=== PATIENT | male | born 1940 | race African-American/Black ===

== ENCOUNTER 2017-04-23 10:46 | Inpatient (IN) ==
--- NOTE | 2017-04-23 11:15 | EKG Report ---
Stationary ECG Study [facility] ER Test Date: 04/23/2017 11:11:52 AM Pat Name: DONG RAMIREZ Department: Room: 276 Gender: M Internet Consultant: Jean Claude Harmon : 1940 Requested by: Valente Pederson Order Number: [id number] Reading MD: OWEN LOREDO Intervals [facility] Rate: 165 P: 999 TX: 0 QRS: 71 QRSD: 97 T: 77 QT: 284 QTc: 375 Interpretive Statements ATRIAL FIBRILLATION/FLUTTER WITH RAPID VENTRICULAR RESPONSE T WAVE ABNORMALITY, POSSIBLE INFERIOR ISCHEMIA OR DIGITALIS EFFECT Electronically Signed On 04-24-17 20:37:54 CDT by OWEN LOREDO [email or web address]
[2017-04-23 11:29] LABS: Basophils % 0.6 % (0.0-0.8); Eosinophils % 0.3 % (0.00-10.9); Hematocrit 37.5 VOL% (42.0-52.0); Hemoglobin 12.1 GM/DL (14.0-18.0); Immature Granulocytes % 0.3 %; Immature Granulocytes Absolute 0.02 #; Lymphocytes # 1.3 10*3/uL (1.4-4.0); Lymphocytes % 19.1 % (21.2-54.2); Mean Corpuscular HGB Conc 32.3 GM/DL (32-36); Mean Corpuscular Hemoglobin 29 PG (27-34); Mean Corpuscular Volume 89.3 FL (87-102); Mean Platelet Volume 9.7 FL (9.6-12.0); Monocytes # 0.7 10*3/uL (0.11-0.8); Monocytes % 10.7 % (1.7-12.7); Neutrophils # 4.7 10*3/uL (1.4-7.4); Platelet Count 182 T/CUMM (130-400); Red Cell Distribution Width 14.3 % (9.3-17.3); White Blood Count 6.8 T/CUMM (4-12)
[2017-04-23 11:45] LABS: INR 1.1; Partial Thromboplastin Time 26.5 SECS (0-40)
[2017-04-23 12:04] LABS: Alanine Aminotransferase 33 U/L (16-61); Albumin 2.6 G/DL (3.4-5.0); Alkaline Phosphatase 94 U/L (45-117); Aspartate Amino Transferase 24 U/L (0-37); Blood Urea Nitrogen 17 MG/DL (7-18); Calcium 8.5 MG/DL (8.5-10.1); Glucose 122 MG/DL (74-106); Magnesium 1.8 MG/DL (1.8-2.4); Osmolality,Calculated 279.5 MOS/KG (273-304); Potassium 4.3 MMOL/L (3.5-5.1); Sodium 139 MMOL/L (136-145); Troponin I Only < 0.015 NG/ML (0.00-0.045)
[2017-04-23] MEDS ORDERED: DILTIAZEM 100 MG VIAL.ADD IV STA (12:16)
[2017-04-23] MEDS ORDERED: DILTIAZEM 100 MG VIAL.ADD IV ONE (12:18)
[2017-04-23] MEDS ORDERED: DILTIAZEM 50 MG/10 ML VIAL IV ONE (12:20)
[2017-04-23] MEDS ORDERED: SODIUM CHLORIDE 0.9% 100 ML IV ONE (12:22)
--- NOTE | 2017-04-23 12:23 | Emergency Department Note ---
Noman Barrett Mantricia, am scribing for, and in the presence of, Valente Leonardo MD 12:20. Malissa Barrett James D, MD, personally performed the services described in this documentation, ascribed by Kimberly Tineo in my presence, and it is both accurate and complete . Arrival - Arrival Chief Complaint: Shortness of Breath Stated Complaint: did not state ED Nursing Triage Note: Pt c/o SOB x 2 months that is getting worse with exertion. Pt had CT of chest done at [facility] 2 wks ago. Mode of Arrival: Ambulatory Limitations: No Limitations Source: Patient, Family Time Seen by Provider: 04/23/17 12:12 - History of Present Illness HPI Narrative: Pt is a 77 y/o black male arriving to ED by EMS with c/o SOB that onset 2 weeks ago. Pt also has had a fast heartbeat for 2 weeks. Pt has emphysema and uses a home nebulizer. Pt has a PSHx of lung surgery and TB surgery. He reports no other complaints to ED. Onset (ago): week(s) Consistency: constant Allergies/Adverse Reactions: Allergies Allergy/AdvReac Type Severity Reaction Status Date / Time No Known Allergies Allergy Unverified 04/09/17 18:22 Home Medications: Home Medications Medication Instructions Recorded Confirmed Type Albuterol Liquid [Proventil Liquid] 10 ml PO TID 04/23/17 04/23/17 History Albuterol Sulfate [Ventolin HFA] 1 puff INH Q6H PRN 04/23/17 04/23/17 History Cetirizine HCl [Cetirizine Tab] 10 mg PO BEDTIME 04/23/17 04/23/17 History HYDROcodone/CHLORPHEN ER SUSP 5 ml PO BEDTIME 04/23/17 04/23/17 History [Tussionex] methylPREDNISolone DOSEPAK [Medrol 4 mg PO DAILY 04/23/17 04/23/17 History Dosepak] Review of System - Review of System 12 point system: reviewed and no additional remarkable complaints except as stated - Review of System Constitutional: Absent: chills, diaphoresis Eyes: Absent: discharge, pain Head/Ears/Nose/Throat: Absent: earache Respiratory: Present: wheezing. Absent: cough, respiratory distress Cardiovascular: Present: dyspnea on exertion. Absent: chest pain, palpitations Gastrointestinal: Absent: abdominal pain, nausea, vomiting, diarrhea Genitourinary male: Absent: urgency Musculoskeletal: Absent: arm pain, back pain Skin: Absent: rash, lesions Neurological: Absent: headache, weakness Medical,Surgical,& Family Hx - Medical History Respiratory: History of: Respiratory Problems (right lung surgery TB) - Social History Smoking Status: Never smoker Exam Vital Signs: Vital Signs Temperature 98.0 F 04/23/17 11:04 Pulse Rate 89 04/23/17 11:04 Respiratory Rate 24 04/23/17 11:04 Blood Pressure 116/80 04/23/17 11:04 O2 Sat by Pulse Oximetry 94 L 04/23/17 11:04 - General General appearance: alert, in no apparent distress - Head Head exam: Present: atraumatic, normocephalic, normal inspection - Eye Eye exam: Present: normal appearance, PERRL, EOMI - ENT ENT exam: Present: normal exam, normal oropharynx, mucous membranes moist, TM's normal bilaterally, normal external ear exam - Neck Neck exam: Present: normal inspection, full ROM, trachea midline. Absent: tenderness - Chest Chest inspection: Present: normal inspection, symmetric chest wall rise. Absent : tenderness - Respiratory Respiratory exam: Present: wheezes (expiratory) - Cardiovascular Cardiovascular exam: Present: normal rhythm, tachycardia (rapid), normal heart sounds - Abdominal Exam Abdominal exam: Present: soft, normal bowel sounds. Absent: distention, tenderness, guarding, rebound - Extremities Exam Extremities exam: Present: normal inspection, full ROM, normal capillary refill. Absent: tenderness, pedal edema - Back Exam Back exam: Present: normal inspection, full ROM. Absent: tenderness - Neurological Exam Neurological exam: Present: alert, oriented X3, CN II-XII intact, normal gait, reflexes normal - Psychiatric Psychiatric exam: Present: normal affect, normal mood - Skin Skin exam: Present: warm, dry, intact, normal color Course Course Narrative: Patient was given Cardizem 10 mg bolus and 10 mg IV infusion while in the emergency department. - Consultations Consultation #1: Discussed with hospitalist. Patient will be admitted to their service. Time: 12:30 Results - Labs CBC & BMP: 04/23/17 11:14 04/23/17 11:14 Lab Results: I have reviewed the patients labs Labs: Laboratory Tests 04/23/17 04/23/17 04/23/17 11:14 11:14 11:14 Hgb 12.1 L Hct 37.5 L Lymph % (Auto) 19.1 L Lymph # (Auto) 1.3 L Creatinine 1.40 H Glucose 122 H B-Natriuretic Peptide 183 H Albumin 2.6 L Globulin 4.4 H Albumin/Globulin Ratio 0.5 L - EKG EKG results: interpreted by ERMD - Impressions EKG: Atrial fib with RVR, rate 165, nonspecific ST-T wave changes. - Diagnostic Findings Procedure: Chest x-ray: image reviewed by me (Volume loss in the right consistent with patient's prior thoracotomy.) Disposition Clinical Impression: Atrial fibrillation with RVR, Abnormal CT scan, chest Case discussed with: patient, patient's family Disposition: Still a Patient Condition: Stable Time of Disposition: 12:32
--- NOTE | 2017-04-23 12:32 | XRay Report ---
XR chest 2V Indication: SOB Comparison: Chest x-ray dated April 09, 2017 Technique: Frontal and lateral views of the chest. Findings: Significant right-sided pleural-parenchymal abnormality with associated volume loss of the right lung unchanged. Redemonstration of left suprahilar prominence/masslike opacity. The cardiomediastinal silhouette is stable in configuration. There is again mild rightward mediastinal shift. Visualized osseous and surrounding soft tissue structures appear grossly unchanged.. Significant deformity of right rib cage again noted. IMPRESSION: No significant change from April 09, 2017. PROCEDURE INTERPRETED AT [facility] DEPARTMENT OF RADIOLOGY Final Report Signed by: Dr Sebastian Godoy
[2017-04-23] MEDS: SODIUM CHLORIDE 0.9% 1,000 ML IV SCH (13:06)
--- NOTE | 2017-04-23 13:15 | Hospitalist History & Physical ---
Assessment and Plan - Time spent with patient Time spent with patient: Greater than 30 minutes (1) Right lower lobe lung mass Status: Acute Assessment and plan: Mr. Dodge is a very pleasant 77-year-old -[place] male with history of thoracotomy due to tuberculosis approximately [address] Naqvi followed him at that time the patient states he has had no further problems. He is now admitted by the hospitalist service with progressive shortness of breath, tachypnea, A. fib with RVR, and lung mass noted on CT scan. Patient is seen Dr. Naqvi before so will consult him for evaluation. Patient is started on Cardizem drip and admitted to telemetry on Dr. Verduzco's service. Labs have been ordered, troponins as well. Dr. Verduzco to see and examine patient and further recommendations to follow. Current Visit: Yes (2) Hilar lymphadenopathy Status: Acute Current Visit: Yes (3) Cough Status: Acute Current Visit: Yes (4) Shortness of breath Status: Acute Current Visit: Yes (5) Atrial fibrillation with RVR Status: Acute Current Visit: Yes History of Present Illness Chief complaint: Shortness of breath History of present illness: Mr. Dodge is a very pleasant 77 year old male with history of right thoracotomy due to TB about 20 years ago presenting to the ED with progressive shortness of breath and cough. Patient states it started about 2 months ago with the shortness of breath and dyspnea on exertion. He does have to sleep on multiple pillows. He states he went to [facility] on 04/09/2017 and he was transferred to [facility] for pulmonary consultation. They made an appointment with Dr. Naqvi who has seen him previously for May 01. Patient states the shortness of breath is worsened and his states he could not even sleep and he was agitated last night due to shortness of breath. CT scan done at [facility] shows neoplastic adenopathy with keagan necrosis. There is a large heterogeneous enhancing mass that measures 4.8 cm transverse and 6.7 cm longitudinal. Left hilar adenopathy is present with central necrosis. Describes adenopathy extending caudally and wraps around the left bronchus. Appearance of the right lung suggest sequela of possible surgery with volume loss and scarring noted. Patient is mildly tachypneic, creatinine mildly elevated at 1.4, and BNP mildly elevated at 183. Patient is moderately congested with coarseness bilaterally and wheezing present. Patient is also found to be in A. fib with RVR and Cardizem has been started in the ED. Patient denies headache, chest pain, dysphagia, abdominal pain, constipation or diarrhea, or lower extremity edema. After discussion with Dr. Leonardo the ED physician and Dr. Verduzco the admitting hospitalist, it was agreed patient be admitted for further evaluation and treatment. Home Medications Medication Instructions Recorded Confirmed Type Albuterol Liquid [Proventil Liquid] 10 ml PO TID 04/23/17 04/23/17 History Albuterol Sulfate [Ventolin HFA] 1 puff INH Q6H PRN 04/23/17 04/23/17 History Cetirizine HCl [Cetirizine Tab] 10 mg PO BEDTIME 04/23/17 04/23/17 History HYDROcodone/CHLORPHEN ER SUSP 5 ml PO BEDTIME 04/23/17 04/23/17 History [Tussionex] methylPREDNISolone DOSEPAK [Medrol 4 mg PO DAILY 04/23/17 04/23/17 History Dosepak] Allergies Allergy/AdvReac Type Severity Reaction Status Date / Time No Known Allergies Allergy Unverified 04/09/17 18:22 Medical,Surgical,& Family Hx - Medical History Respiratory: History of: Respiratory Problems (right lung surgery TB) - Surgical History Thoracic Surgeries: Surgical HX of;: Lobectomy - Family History Family History: Reports;: Family Heart Disease - Social History Smoking Status: Former smoker Have you smoked in the last 12 months: No Frequency of Alcohol Use: None Type of Drug Use: None Marital Status: Lives With:: Spouse Functional capacity: independent ambulation Review of systems: A complete 10 system review of systems was obtained and pertinent positives and negatives per HPI Exam - Constitutional Vitals: Period Temp Pulse Resp BP Sys/Srivastava Pulse Ox Last 24 Hr 98.0 F-98.0 F 89-89 24-24 116-116/80-80 94 Exam: Constitutional System: Moderate distress. No tremulousness. Head: Normocephalic, atraumatic. Ears, Nose and Throat System: No evidence of Otitis or Mastoiditis. No epistaxis or discharge, poor dentition Eyes System: Pupils equal, round, and reactive. Extraocular muscles intact. Neck: Supple, without adenopathy, No jugular venous distention. No thyromegaly, neck mass, or prior surgery apparent. Respiratory System: Chest coarse bilaterally with expiratory wheeze to auscultation. Cardiovascular System: Heart with irregularly irregular and tachycardic rate and rhythm. No murmur. GI System: Abdomen soft, nontender. Normo active bowel sounds present. Musculoskeletal System: limbs with no pedal edema. Full distal pulses. Neurological System: No discernable sensory deficit. No aphasia Psychiatric System: Conversation is rational Results - Labs CBC & BMP: 04/23/17 11:14 04/23/17 11:14 Lab Results: I have reviewed the past 24 hour labs - EKG EKG shows: atrial fibrillation - Impressions A. fib with RVR, T-wave abnormality with possible inferior ischemia or digitalis effect - Diagnostic Findings Procedure: Chest x-ray: report reviewed by me (Right-sided pleural parenchymal abnormality with associated volume loss of the right lung unchanged. Left suprahilar prominence/masslike opacity. Mild rightward mediastinal shift. Deformity of right rib cage)
[2017-04-23] MEDS ORDERED: GLUCAGON 1 MG VIAL IM PRN (13:38)
[2017-04-23] MEDS ORDERED: ONDANSETRON 4 MG/2 ML VIAL IV PRN (13:38)
[2017-04-23] MEDS ORDERED: ACETAMINOPHEN 325 MG TABLET PO PRN (13:38)
[2017-04-23] MEDS ORDERED: DEXTROSE 50% 25 GM/50 ML VIAL IV PRN (13:38)
[2017-04-23] MEDS ORDERED: guaiFENesin/DM ER 600-30 MG TABLET PO PRN (13:38)
[2017-04-23] MEDS ORDERED: ALBUTEROL 2.5 MG/3 ML NEB RESP TX PRN (15:40)
[2017-04-23] MEDS: methylPREDNISolone SOD SUC 125 MG/2 ML VIAL IV SCH (16:42)
[2017-04-23] MEDS: cefTRIAXone 1,000 MG in SODIUM CHLORIDE 0.9% 100 ML IV SCH (16:42)
[2017-04-23] MEDS: LEVOFLOXACIN 500 MG TABLET PO SCH (16:42)
[2017-04-23] MEDS: ENOXAPARIN 80 MG/0.8 ML SYRINGE SUBCUT SCH (16:52)
[2017-04-23] MEDS: INSULIN LISPRO 100 UNIT/ML SUBCUT SCH ×2 (16:53→21:06)
--- NOTE | 2017-04-23 17:18 | Pulmonology Consult Note ---
Assessment and Plan (1) Acute bronchitis Status: Acute Assessment and plan: He does have a cough and sputum production and rhonchi. We will treat him with antibiotics and steroids. Need to get cultures. Probably has some bronchopneumonia as well. Current Visit: Yes (2) Abnormal CT scan, chest Status: Acute Assessment and plan: I have not been able to pull up the CT to review but reading the reports it indicates that he has some mediastinal adenopathy. I will plan bronchoscopy in the morning. Hopefully I will be able to review the films prior to that. he does have a remote history of some form of some form of tuberculosis. Current Visit: Yes (3) Atrial fibrillation with RVR Status: Acute Assessment and plan: Rate is controlled. Current Visit: Yes (4) Hilar lymphadenopathy Status: Acute Assessment and plan: Could be results of previous TB or he could have a malignancy. Plan to do bronchoscopy in the morning and see if anything is visible there. Also will get cultures for Mycobacterium and bacterial causes of this Current Visit: Yes History of Present Illness Chief complaint: cough, congestion History of present illness: Mr. Dodge is a 77 year old male who has been short of breath going on close to a month. He has had a cough and congestion for the last 2 weeks. He went to the emergency room at [place] about 2 weeks ago. He was thought to have an obstructed bronchus but the CT scan did not bear that out. He was to see me in the office but he came in here today with increased shortness of breath cough and yellow sputum production. He does not think he has had any fever. He stopped smoking about 20 or 30 years ago. He has had a previous partial resection of his right long with an apparent thoracoplasty in the late s by Dr. Matos. I do not have the details of that and we are going to need to see that. He reportedly had tuberculosis and was treated and felt to be cured. There is no known history of a cancer. He does have a good bit of mediastinal adenopathy on his CT done 2 weeks ago at [place]. Home Medications Medication Instructions Recorded Confirmed Type Albuterol Liquid [Proventil Liquid] 10 ml PO TID 04/23/17 04/23/17 History Albuterol Sulfate [Ventolin HFA] 1 puff INH Q6H PRN 04/23/17 04/23/17 History Cetirizine HCl [Cetirizine Tab] 10 mg PO BEDTIME 04/23/17 04/23/17 History HYDROcodone/CHLORPHEN ER SUSP 5 ml PO BEDTIME 04/23/17 04/23/17 History [Tussionex] methylPREDNISolone DOSEPAK [Medrol 4 mg PO DAILY 04/23/17 04/23/17 History Dosepak] Allergies Allergy/AdvReac Type Severity Reaction Status Date / Time No Known Allergies Allergy Unverified 04/09/17 18:22 12 point system: reviewed and no additional remarkable complaints except as stated - Constitutional Constitutional: Present: fatigue - Cardiovascular Cardiovascular: Present: dyspnea, dyspnea on exertion - Respiratory Respiratory: Present: cough, dyspnea, dyspnea on exertion, wheezing, change in phlegm color Exam (Pulmonay) H&P - Constitutional Vitals: Period Temp Pulse Resp BP Sys/Srivastava Pulse Ox Last 24 Hr 98.0 F-98.4 F 89-122 20-24 116-146/80-85 94-95 Exam: Vital signs are normal. Oxygen saturation 94% on 2 L. Weight is 77 kg. HEENT : Pupils react to light. Throat is clear. Neck supple no bruits. Chest reveals some rhonchi in the bases equal breath sounds. Heart normal rate and rhythm no murmurs. Abdomen soft no masses. Extremities no clubbing cyanosis or edema. Calves are nontender. Medical,Surgical,& Family Hx - Medical History HEENT: No history of: Ear Problem, Eye Problem, Dental Problems, Glaucoma, Oral Cancer, HEENT Problems Respiratory: History of: Bronchitis, Respiratory Problems (right lung surgery TB) Musculoskeletal: History of: Musculoskeletal Problems (arthitis) - Surgical History Thoracic Surgeries: Surgical HX of;: Lobectomy HEENT Surgeries: Patient denies: Eye Surgery, Tonsilectomy & Adenoidectomy Abdominal Surgeries: Surgical HX of: Appendectomy Reproductive Surgeries: Patient denies;: Genitourinary Surgery - Family History Family History: Reports;: Family Heart Disease Denies;: Family Cancer, Family Diabetes, Family Hypertension, Family Psychiatric Problems, Family Stroke - Social History Smoking Status: Former smoker Frequency of Alcohol Use: None Type of Drug Use: None Results - Labs CBC & BMP: 04/23/17 11:14 04/23/17 11:14 Lab Results: I have reviewed the past 24 hour labs - Diagnostic Findings Procedure: Chest x-ray: image reviewed by me (Previous thoracoplasty on the right side. Mediastinum slightly enlarged.)
[2017-04-23 18:51] LABS: INR 1.2; PT Patient Result 12.7 SECS; Partial Thromboplastin Time 30.7 SECS (0-40)
[2017-04-23] MEDS: ALBUTEROL/IPRATROPIUM 3 ML NEB RESP TX SCH (19:08)
[2017-04-23] MEDS: DILTIAZEM 30 MG TABLET PO SCH (21:00)
[2017-04-23] MEDS: ZALEPLON 5 MG CAPSULE PO PRN (21:00)
[2017-04-23] MEDS: CETIRIZINE 10 MG TABLET PO SCH (21:00)
[2017-04-23] MEDS ORDERED: ENOXAPARIN 40 MG/0.4 ML SYRINGE SUBCUT SCH (21:00)
[2017-04-23] MEDS: HYDROcodone/CHLORPHENIRAMINE ER 5 ML UDCUP PO SCH (21:06)
[2017-04-24] MEDS: ALBUTEROL/IPRATROPIUM 3 ML NEB RESP TX SCH ×4 (00:02→19:10)
[2017-04-24] MEDS ORDERED: DILTIAZEM INJ 100 MG in SODIUM CHLORIDE 0.9% 100 ML IV SCH (01:30)
[2017-04-24] MEDS: ENOXAPARIN 80 MG/0.8 ML SYRINGE SUBCUT SCH ×3 (04:07→21:06)
[2017-04-24] MEDS: methylPREDNISolone SOD SUC 125 MG/2 ML VIAL IV SCH ×2 (04:07→16:47)
[2017-04-24 05:22] LABS: Basophils % 0.1 % (0.0-0.8); Hemoglobin 11.3 GM/DL (14.0-18.0); Immature Granulocytes % 0.4 %; Immature Granulocytes Absolute 0.03 #; Lymphocytes # 0.7 10*3/uL (1.4-4.0); Mean Corpuscular HGB Conc 32.3 GM/DL (32-36); Mean Corpuscular Hemoglobin 29 PG (27-34); Mean Corpuscular Volume 88.4 FL (87-102); Mean Platelet Volume 10.1 FL (9.6-12.0); Monocytes # 0.1 10*3/uL (0.11-0.8); Monocytes % 2.1 % (1.7-12.7); Neutrophils # 5.8 10*3/uL (1.4-7.4); Neutrophils % 86.4 % (38.7-73.9); Platelet Count 165 T/CUMM (130-400); Red Blood Count 3.96 MC/CUMM (3.8-5.5); Red Cell Distribution Width 14.1 % (9.3-17.3); White Blood Count 6.7 T/CUMM (4-12)
[2017-04-24 05:30] LABS: INR 1.2; PT Patient Result 12.6 SECS
[2017-04-24 05:57] LABS: Blood Urea Nitrogen 20 MG/DL (7-18); Calcium 8.4 MG/DL (8.5-10.1); Glucose 150 MG/DL (74-106); Magnesium 1.9 MG/DL (1.8-2.4); Osmolality,Calculated 282.5 MOS/KG (273-304); Potassium 4.8 MMOL/L (3.5-5.1); Sodium 139 MMOL/L (136-145); Troponin I Only < 0.015 NG/ML (0.00-0.045)
--- NOTE | 2017-04-24 06:45 | XRay Report ---
XR chest 1V portable Indication: Shortness of breath Comparison: Chest x-ray 04/23/2017. Technique: Portable AP chest was performed. Findings: The heart is stable in size compared to previous study. Pulmonary vasculature is prominent within the central chest. Hilar structures suggest enlargement of pulmonary arteries. This finding is stable compared to prior study. The lungs demonstrate minimal interval increase in linear horizontal interstitial opacities in the periphery of the lower left lung suggesting interval development of interstitial edema. The right lung parenchyma has changed little since comparison. Bones and soft tissues demonstrate little change from comparison. Impression: 1. Interval development of interstitial pulmonary edema within the left lung is not excluded. 2. Pulmonary vascular congestive changes are suggested. 04/24/2017 6:41 AM PROCEDURE INTERPRETED AT [facility] DEPARTMENT OF RADIOLOGY Final Report Signed by: Dr. Dalton Vance
[2017-04-24] MEDS ORDERED: PROMETHAZINE 25 MG/1 ML VIAL IM ONE (07:00)
[2017-04-24] MEDS ORDERED: MIDAZOLAM 2 MG/2 ML VIAL ONE (07:19)
[2017-04-24] MEDS ORDERED: LIDOCAINE 1% 20 ML VIAL MISC INJ ONE (07:30)
[2017-04-24] MEDS ORDERED: MIDAZOLAM 2 MG/2 ML VIAL IV ONE (07:30)
--- NOTE | 2017-04-24 07:50 | Operative Note ---
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 After an appropriate timeout to be sure we were dealing with Wilberto Dodge , the patient was topically anesthetized in the nose and nasopharynx with Xylocaine. 3 L of nasal oxygen was placed in the right naris. He was given 2 mg of Versed intravenously to the point of sedation. The fiberoptic bronchoscope was introduced via the left naris. The vocal cords were identified and noted to function normally with phonation. After further topical anesthesia the trachea was entered. It was somewhat tortuous but no lesions seen. The cory was sharp. The right main bronchus appeared normal. The right upper lobe bronchi appear to terminate but it was difficult to tell. Appears he has had at least a partial right upper lobectomy. Right middle and lower lobe bronchi appeared normal. There were increased secretions on the right side which were irrigated and removed. The left main bronchus was narrowed to about 50% normal diameter. The medial wall of the left main bronchus about jail down showed a mass impinging and narrowing it to about 30 -40% of normal diameter. There were abnormal mucosal areas on that lesion consistent with carcinoma. 2 biopsies were obtained from this mass. There was modest bleeding. I did not do any further biopsies because of the bleeding. We got the bleeding stopped with saline irrigation and scope tip pressure. The distal bronchi, left upper lobe and left lower lobe were both open. There were no lesions distal to the one in the mid medial wall of the left main bronchus. Bronchial washings were obtained as well. The bronchoscope was removed. I did take multiple photographs. The patient returned to his room in stable condition. The narrowing of the left main bronchus is not to the point where it would require a stent. If this is indeed carcinoma, which it certainly looks like, then radiation or chemotherapy would be indicated. Not a surgical candidate since the lesion involves the mediastinum Anesthesia: conscious sedation Surgeon / Physician: Stuart Naqvi Estimated blood loss: minimal Specimens: other (Biopsies 2 left main bronchus, bronchial washings) Condition: stable Disposition: floor Results - Labs CBC & BMP: 04/24/17 04:34 04/24/17 04:34 Discharge Plan - Discharge Medications No Action Albuterol Liquid [Proventil Liquid] 10 ml PO TID Cetirizine HCl [Cetirizine Tab] 10 mg PO BEDTIME Albuterol Sulfate [Ventolin HFA] 1 puff INH Q6H PRN PRN Reason: Shortness Of Breath/Wheezing methylPREDNISolone DOSEPAK [Medrol Dosepak] 4 mg PO DAILY HYDROcodone/CHLORPHEN ER SUSP [Tussionex] 5 ml PO BEDTIME - Follow Up or Referral - Forms/Instructions
--- NOTE | 2017-04-24 07:55 | Pulmonology Progress Note ---
Pulmonary - PN: Subj Interval history: This 77-year-old man came in with increased shortness of breath. He had a CT at [place] about 2 weeks ago showing some mediastinal mass with partial extrinsic compression of left main bronchus. He is in now with cough congestion and increased shortness of breath. He underwent fiberoptic bronchoscopy this morning. He has tumor compressing the left main bronchus but there did appear to be an element of it involving the mucosa. Biopsies were taken and should give us an answer. His left main bronchus is not obstructed enough to require a stent. Likely would need combination of radiation and chemotherapy depending on cell type. We are waiting on retrieval of old records from 30 years ago when he had surgery on his right long and a thoracoplasty. He had TB at that time. Exam (Progress Note) - Constitutional Vitals: Period Temp Pulse Resp BP Sys/Srivastava Pulse Ox Last 24 Hr 97.5 F-99.0 F 70-135 12-24 116-207/76-124 90-100 Exam: Patient's alert oriented vital signs normal. Pupils react to light. Throat is clear. Neck supple no bruits. Chest reveals some rhonchi bilaterally. Heart irregular without murmurs. He has multifocal atrial tachycardia. Abdomen soft nontender no masses. Extremities no clubbing cyanosis edema. Calves nontender. Results - Labs CBC & BMP: 04/24/17 04:34 04/24/17 04:34 Lab Results: I have reviewed the past 24 hour labs - Diagnostic Findings Procedure: Chest x-ray: image reviewed by me (Volume loss in right lung from previous lung surgery and thoracoplasty. Left hilum is plump) Assessment and Plan (1) Acute bronchitis Status: Acute Assessment and plan: He does have a cough and sputum production and rhonchi. We will treat him with antibiotics and steroids. Need to get cultures. Probably has some bronchopneumonia as well. 04/24/2017 being treated with antibiotics and steroids for acute bronchitis. Current Visit: Yes (2) Abnormal CT scan, chest Status: Acute Assessment and plan: I have not been able to pull up the CT to review but reading the reports it indicates that he has some mediastinal adenopathy. I will plan bronchoscopy in the morning. Hopefully I will be able to review the films prior to that. he does have a remote history of some form of some form of tuberculosis. 04/24/2017 was able to review the CT and he has fairly large mass in the mediastinum/left hilum with compression of left main bronchus. He has had bronchoscopy this morning with biopsies. Await pathology from that. Current Visit: Yes (3) Atrial fibrillation with RVR Status: Acute Assessment and plan: Rate is controlled. 04/24/2017. On the monitor during his bronchoscopy it is apparent that he has multifocal atrial tachycardia rather than atrial fibrillation at the present time. Current Visit: Yes (4) Hilar lymphadenopathy Status: Acute Assessment and plan: Could be results of previous TB or he could have a malignancy. Plan to do bronchoscopy in the morning and see if anything is visible there. Also will get cultures for Mycobacterium and bacterial causes of this 04/24/2017 this is likely to be a primary malignancy. Biopsies are pending. See bronchoscopy report Current Visit: Yes
[2017-04-24] MEDS: DILTIAZEM 30 MG TABLET PO SCH ×3 (09:54→21:05)
[2017-04-24] MEDS: PANTOPRAZOLE 40 MG TABLET PO SCH (09:54)
[2017-04-24] MEDS: INSULIN LISPRO 100 UNIT/ML SUBCUT SCH ×4 (09:59→21:08)
--- NOTE | 2017-04-24 10:09 | Hospitalist Progress Note ---
Assessment and Plan - Time spent with patient Time spent with patient: Less than 30 minutes (1) Right lower lobe lung mass Status: Acute Assessment and plan: Mr. Dodge is a very pleasant 77-year-old -[place] male with history of thoracotomy due to tuberculosis approximately [address] Naqvi followed him at that time the patient states he has had no further problems. He is now admitted by the hospitalist service with progressive shortness of breath, tachypnea, A. fib with RVR, and lung mass noted on CT scan. Patient is seen Dr. Naqvi before so will consult him for evaluation. Patient is started on Cardizem drip and admitted to telemetry on Dr. Verduzco's service. Labs have been ordered, troponins as well. Dr. Verduzco to see and examine patient and further recommendations to follow. 04/24/2017 patient looks and feels much better today. He is breathing much easier with no wheezing. His A. fib with RVR has now converted to normal sinus rhythm with a heart rate in the 90s. He is still on Cardizem drip. Will discuss this with Dr. Verduzco and see if he can be switched over to p.o. Cardizem. His blood pressures are elevated so we will start him on some Norvasc 10 mg daily and some Procardia as needed. Patient was seen by Dr. Naqvi yesterday and he performed a bronchoscopy this morning. 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 He did obtain multiple biopsies and bronchial washings of this. The narrowing of the left main bronchus did not require stenting at this time. He did feel that this was certainly a carcinoma and may require radiation or chemotherapy. We will await biopsy results. Will continue with his current plan of care. Dr. Verduzco we will see and examine patient and further recommendations to follow. Current Visit: Yes (2) Hilar lymphadenopathy Status: Acute Current Visit: Yes (3) Cough Status: Acute Current Visit: Yes (4) Shortness of breath Status: Acute Current Visit: Yes (5) Atrial fibrillation with RVR Status: Acute Current Visit: Yes Hospitalist: Subjective Interval history: Patient looks and feels much better this morning. He is a little sleepy from his sedation on bronchoscopy this morning. He has no complaints of chest pain or shortness of breath today. Dr. Naqvi did discuss results of the bronchoscopy with his . I discussed the findings again with him and her at the bedside. Exam - Constitutional Vitals: Period Temp Pulse Resp BP Sys/Srivastava Pulse Ox Last 24 Hr 97.5 F-99.0 F 70-135 12-24 116-207/76-124 90-100 Exam: 77-year-old -[place]os[place] male, no acute distress, alert and oriented Chest with mild coarseness bilaterally, no wheezing CV normal sinus rhythm Abdomen soft nontender Extremities no edema Results - Labs CBC & BMP: 04/24/17 04:34 04/24/17 04:34 Lab Results: I have reviewed the past 24 hour labs - EKG EKG results: sinus rhythm
[2017-04-24] MEDS: SODIUM CHLORIDE 0.9% 1,000 ML IV SCH (10:15)
[2017-04-24] MEDS ORDERED: NIFEdipine 10 MG CAPSULE PO PRN (10:20)
[2017-04-24] MEDS: amLODIPine 10 MG TABLET PO SCH (12:02)
[2017-04-24] MEDS ORDERED: methylPREDNISolone SOD SUC 125 MG/2 ML VIAL IV ONE (15:15)
[2017-04-24 15:50] LABS: ABG HCO3 32.4 MMOL/L (20-26); ABG Oxygen Saturation 97.2 % (95-100); ABG PH 7.242 (7.35-7.45); ABG PO2 107.4 MM HG (80-95); ABG TCO2 34.8 MMOL/L (23-27)
[2017-04-24 15:52] LABS: ABG PCO2 77.1 MM HG (35-48)
--- NOTE | 2017-04-24 16:01 | XRay Report ---
XR chest 1V portable Indication: Post bronchoscopy Comparison: Chest x-ray dated April 24, 2017 at 6:22 AM Technique: Single frontal view of the chest Findings: The cardiomediastinal silhouette is stable in configuration. Left suprahilar masslike prominence again noted. Significant pleural-parenchymal mildly throughout the right lung again noted with volume loss and mild rightward mediastinal shift. Left lung demonstrates nonspecific coarse and interstitial prominence, greatest inferiorly, unchanged. No evidence of pneumothorax. Visualized osseous and surrounding soft tissue structures appear grossly unchanged. IMPRESSION: No significant interval change without evidence of pneumothorax. PROCEDURE INTERPRETED AT [facility] DEPARTMENT OF RADIOLOGY Final Report Signed by: Dr Sebastian Godoy
[2017-04-24] MEDS: LEVOFLOXACIN 500 MG TABLET PO SCH (17:16)
[2017-04-24] MEDS: cefTRIAXone 1,000 MG in SODIUM CHLORIDE 0.9% 100 ML IV SCH (17:17)
[2017-04-24] MEDS: CETIRIZINE 10 MG TABLET PO SCH (21:06)
[2017-04-24] MEDS: HYDROcodone/CHLORPHENIRAMINE ER 5 ML UDCUP PO SCH (21:07)
--- NOTE | 2017-04-24 22:01 | EKG Report ---
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
[2017-04-24] MEDS ORDERED: ADENOSINE 6 MG/2 ML VIAL ONE (22:13)
[2017-04-24] MEDS ORDERED: METOPROLOL TARTRATE 5 MG/5 ML VIAL IV ONE ×2 (22:23→22:25)
--- NOTE | 2017-04-24 22:44 | Event Note ---
I got called to the floor that the patient was having SVT. Patient had an EKG that the heartbeats of 147 Minute however the EKG had P waves occuring at the end of T's. Carotid massage was able to drop the heart rate down very easily. Once that was done it was obvious patient was back in atrial fibrillation. Give him 5 mg of low metoprolol IV slow push. He slowed his heart rate 104 beats on average but still in atrial fibrillation. His gentleman was here with atrial fibrillation and was on diltiazem IV was switched to oral diltiazem area on during the daytime. The heart rate goes up again will put him back on IV diltiazem. Patient is stable no symptoms nothing else to be done continue telemetry monitoring.
[2017-04-25] MEDS: ALBUTEROL/IPRATROPIUM 3 ML NEB RESP TX SCH ×5 (00:12→20:42)
[2017-04-25] MEDS: SODIUM CHLORIDE 0.9% 1,000 ML IV SCH (05:09)
[2017-04-25] MEDS: methylPREDNISolone SOD SUC 125 MG/2 ML VIAL IV SCH ×2 (05:09→16:55)
--- NOTE | 2017-04-25 06:56 | XRay Report ---
XR chest 1V portable Indication: Status post bronchoscopy. Comparison: Chest x-ray 04/24/2017 Technique: Portable AP chest was performed. Findings: The heart is stable in size and appearance compared to prior study. Pulmonary vasculature demonstrates no specific abnormality. Hilar structures are stable compared to the prior study. The lungs demonstrate little change from comparison. Bones and soft tissues demonstrate stable appearance deformity of the right rib cage unchanged. Impression: 1. No adverse interval change in the chest. 04/25/2017 6:52 AM PROCEDURE INTERPRETED AT [facility] DEPARTMENT OF RADIOLOGY Final Report Signed by: Dr. Dalton Vance
[2017-04-25] MEDS: DILTIAZEM 30 MG TABLET PO SCH (07:45)
--- NOTE | 2017-04-25 07:58 | Pulmonology Progress Note ---
Pulmonary - PN: Subj Interval history: This 77-year-old man came in with increased shortness of breath. He had a CT at [place] about 2 weeks ago showing some mediastinal mass with partial extrinsic compression of left main bronchus. He is in now with cough congestion and increased shortness of breath. He underwent fiberoptic bronchoscopy this morning. He has tumor compressing the left main bronchus but there did appear to be an element of it involving the mucosa. Biopsies were taken and should give us an answer. His left main bronchus is not obstructed enough to require a stent. Likely would need combination of radiation and chemotherapy depending on cell type. We are waiting on retrieval of old records from 30 years ago when he had surgery on his right long and a thoracoplasty. He had TB at that time. 04/25/2017 patient had episodes of tachyarrhythmia during the night. He had a carotid massage and some IV medications per hospitalist service. This morning it appears that he has atrial flutter with 2-1 block and heart rate around 150. He does not seem real symptomatic. He is alert. Yesterday his ABG showed CO2 retention when he was on 4 L of oxygen. We have reduced the oxygen. Have not repeated the ABGs. Pathology from biopsy done yesterday should be out tomorrow. 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 He had a decortication done by Dr. Matos. He had full treatment for TB and was cured. This accounts for his abnormal x-ray on the right side. He did have a thoracoplasty at that time as well. At this point we need cardiology to help with his tachyarrhythmia, and we await his pathology report. Shortly will not be a surgical candidate by the location of the tumor and physiologically. Exam (Progress Note) - Constitutional Vitals: Period Temp Pulse Resp BP Sys/Srivastava Pulse Ox Last 24 Hr 96.2 F-99.1 F 80-104 17-22 123-181/63-94 90-99 Exam: Patient's alert oriented vital signs normal, except pulse about 150. Pupils react to light. Throat is clear. Neck supple no bruits. Chest reveals some rhonchi bilaterally. Heart irregular without murmurs. He has multifocal atrial tachycardia. Abdomen soft nontender no masses. Extremities no clubbing cyanosis edema. Calves nontender. Results - Labs CBC & BMP: 04/24/17 04:34 04/24/17 04:34 Lab Results: I have reviewed the past 24 hour labs - Diagnostic Findings Procedure: Chest x-ray: image reviewed by me (No change in x-ray this morning. Previous thoracoplasty on the right with some pleural calcification. Left lung fairly clear. Left hilar mass.) Assessment and Plan (1) Acute bronchitis Status: Acute Assessment and plan: He does have a cough and sputum production and rhonchi. We will treat him with antibiotics and steroids. Need to get cultures. Probably has some bronchopneumonia as well. 04/24/2017 being treated with antibiotics and steroids for acute bronchitis. 04/25/2017 continuing antibiotics and steroids. Current Visit: Yes (2) Abnormal CT scan, chest Status: Acute Assessment and plan: I have not been able to pull up the CT to review but reading the reports it indicates that he has some mediastinal adenopathy. I will plan bronchoscopy in the morning. Hopefully I will be able to review the films prior to that. he does have a remote history of some form of some form of tuberculosis. 04/24/2017 was able to review the CT and he has fairly large mass in the mediastinum/left hilum with compression of left main bronchus. He has had bronchoscopy this morning with biopsies. Await pathology from that. 04/25/2017 mass with partial obstruction of left main bronchus. Current Visit: Yes (3) Atrial fibrillation with RVR Status: Acute Assessment and plan: Rate is controlled. 04/24/2017. On the monitor during his bronchoscopy it is apparent that he has multifocal atrial tachycardia rather than atrial fibrillation at the present time. 04/25/2017 atrial flutter with RVR this morning. Cardiology to see Current Visit: Yes (4) Hilar lymphadenopathy Status: Acute Assessment and plan: Could be results of previous TB or he could have a malignancy. Plan to do bronchoscopy in the morning and see if anything is visible there. Also will get cultures for Mycobacterium and bacterial causes of this 04/24/2017 this is likely to be a primary malignancy. Biopsies are pending. See bronchoscopy report 04/25/2017 likely to be bronchogenic carcinoma. Pathology reported pending Current Visit: Yes
[2017-04-25] MEDS: INSULIN LISPRO 100 UNIT/ML SUBCUT SCH ×5 (08:04→21:55)
[2017-04-25] MEDS ORDERED: DILTIAZEM 50 MG/10 ML VIAL IV ONE (08:21)
--- NOTE | 2017-04-25 08:24 | Cardiology Consult Note ---
<Janene Medeiros E - Last Filed: 04/25/17 08:19> Assessment and Plan - Time spent with patient Time spent with patient: Greater than 30 minutes (due to assessment, plan, and documentation) (1) Atrial fibrillation with RVR Status: Acute Assessment and plan: See plan of care listed below. Current Visit: Yes (2) Acute bronchitis Status: Acute Assessment and plan: See plan of care listed below. Current Visit: Yes (3) Abnormal CT scan, chest Status: Acute Assessment and plan: See plan of care listed below. Current Visit: Yes (4) Hilar lymphadenopathy Status: Acute Assessment and plan: See plan of care listed below. Current Visit: Yes (5) Former tobacco use Status: Chronic Assessment and plan: See plan of care listed below. Current Visit: Yes (6) Hypertension Status: Acute Assessment and plan: See plan of care listed below. 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 LOREDO Mr. Dodge is a 77 year old male with no significant cardiac history. He denies a history of hypertension, diabetes, dyslipidemia, or prior stroke. His admits his blood pressure has fluctuated through the years but he has never required prison antihypertensives. 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 He is a former smoker having quit approximately 12 years ago. He reports he smoked for about 20 years. Risk factors are significant for : Age, sedentary lifestyle, former tobacco use. Mr. Dodge presented to the hospital with complaints of progressive shortness of breath. He reports for the past 2 months he has had worsening dyspnea on exertion and has noticed a cough and congestion for the past 2 weeks. He has a productive cough of yellow mucus. He denies any recent fever or chills. He denies any chest pain with the shortness of breath. He has had a couple episodes of near syncope with dizziness and lightheadedness. He recently went to the [facility] ER on 04/09/2017 and was transferred to our facility for a pulmonary consultation. Recent CT done at [place] shows neoplastic adenopathy with keagan necrosis. There is a large heterogeneous enhancing mass that measures 4.8 cm transverse and 6.7 cm longitudinal. Left hilar adenopathy is present with central necrosis. Describes adenopathy extending caudally and wraps around the left bronchus. Appearance of the right lung suggest sequela of possible surgery with volume loss and scarring noted. He was initially found to be in A. fib with RVR and was started on IV Cardizem. He converted to sinus rhythm and was transitioned to oral diltiazem. Last night, hospitalist received a call that the patient was having tachyarrhythmia with heart rates in the 140s- 150s. He had a carotid massage and some IV medications and heart rate improved. This morning he is having heart rates in the 140s. We are consulted to see him. Mr. Dodge denies palpitations or feelings of racing heart. He denies recent edema, nausea, vomiting, diarrhea, constipation. He has some conversational dyspnea and is tachypneic upon exam. ASSESSMENT/PLAN: 1. ATRIAL FIBRILLATION W/ RVR -we will repeat EKG this morning. Patient appears to be in a tachyarrhythmia consistent with A. fib/flutter. Will place him back on IV Cardizem and titrate for target heart rate less than 100 bpm. Is currently being anticoagulated with Lovenox 70 mg subcutaneous every 12 hours. Will obtain an echocardiogram to assess wall motion abnormalities and valvular function. Will further discuss with Dr. Loredo and await his recommendations. 2. ACUTE BRONCHITIS -pulmonology is following. He is being treated with antibiotics and steroids. 3. ABNORMAL CHEST CT -he has a fairly large mass in the mediastinum/left hilum with partial obstruction of the left main bronchus. He underwent bronchoscopy yesterday morning with biopsies. Pathology is pending. 4. HILAR LYMPHADENOPATHY -pulmonology is following. 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 5. FORMER TOBACCO ABUSE -patient has a history of 20 years smoking, reportedly quit approximately 12 years ago. 6. HYPERTENSION - He has had several elevated blood pressure readings since being in the hospital. I suspect he may have some underlying hypertension. We will continue to monitor. He was started on Norvasc 10 mg p.o. daily and Cardizem 30 mg p.o. 3 times daily. We have changed him to IV Cardizem at this time to help control his heart rate. Dr. Loredo to follow with further plan and addendum. CC: Serafin Verduzco MD - Home Medications and Allergies Home Medications: Home Medications Medication Instructions Recorded Confirmed Type Albuterol Liquid [Proventil Liquid] 10 ml PO TID 04/23/17 04/23/17 History Albuterol Sulfate [Ventolin HFA] 1 puff INH Q6H PRN 04/23/17 04/23/17 History Cetirizine HCl [Cetirizine Tab] 10 mg PO BEDTIME 04/23/17 04/23/17 History HYDROcodone/CHLORPHEN ER SUSP 5 ml PO BEDTIME 04/23/17 04/23/17 History [Tussionex] methylPREDNISolone DOSEPAK [Medrol 4 mg PO DAILY 04/23/17 04/23/17 History Dosepak] Allergies/Adverse Reactions: Allergies Allergy/AdvReac Type Severity Reaction Status Date / Time No Known Allergies Allergy Unverified 04/09/17 18:22 Review of systems: - Constitutional: Present: frequent falls, As per HPI. Absent: anorexia, chills , daytime sleepiness, excessive sweating, fever(s), headache(s), increased appetite, lethargy, malaise, night sweats, stops breathing during sleep, weakness, weight gain, weight loss, fatigue. - EENT Eyes: Present: As per HPI. Absent: blurry vision, diplopia, loss of vision Ears: Present: As per HPI. Absent: decreased hearing, ear discharge, ear pain Nose, mouth and throat: Present: nasal congestion, As per HPI. Absent: dysphagia , epistaxis, headache(s), hoarseness, lip swelling, neck mass, neck pain, sinus pressure, sore throat, throat swelling, tongue swelling, vertigo - Cardiovascular: Present: dyspnea, dyspnea on exertion, lightheadedness, orthopnea, as per HPI. Absent: chest pain at rest, chest pain with activity, edema, claudication, diaphoresis, radiating jaw, neck or arm pain, palpitations , PND - Respiratory: Present: dyspnea, dyspnea on exertion, cough, as per HPI. Absent : hemoptysis, wheezing, snoring, pain on inspiration - Gastrointestinal: Present: As per HPI. Absent: abdominal pain, bloating, change in bowel habits, constipation, diarrhea, heartburn, hematemesis, hematochezia, loose stools, melena, nausea, vomiting - Genitourinary: Present: As per HPI. Absent: difficulty urinating, dysuria, flank pain, hematuria, nocturia, urinary frequency, urinary incontinence - Musculoskeletal: Present: As per HPI. Absent: arthralgias, back pain, joint swelling, limited range of motion, muscle cramps, muscle weakness, myalgias - Neurological: Present: dizziness, frequent falls, As per HPI. Absent: abnormal gait, abnormal speech, behavioral changes, confusion, convulsions, disequilibrium, focal weakness, headache(s), memory loss, numbness, paresthesias , radicular pain, syncope, tremor(s) - Psychiatric: Present: As per HPI. Absent: anxiety, confusion, depression, panic attacks - Endocrine: Present: As per HPI. Absent: cold intolerance, fatigue, heat intolerance, polydipsia, polyphagia - Hematologic/Lymphatic: Present: As per HPI. Absent: easy bleeding, easy bruising, lymphadenopathy Medical,Surgical,& Family Hx - Medical History Cardio: No history of: Cardiac Dysrhythmia, CHF, CAD, CO HEENT: No history of: Ear Problem, Eye Problem, Dental Problems, Glaucoma, Oral Cancer, HEENT Problems Endocrine: No history of: Diabetes Mellitus (IDDM), Diabetes Mellitus (NIDDM), Dyslipidemia Respiratory: History of: Bronchitis, Respiratory Problems (right lung surgery TB) Musculoskeletal: History of: Musculoskeletal Problems (arthitis) Hematology: No history of: Anemia, Bleeding Problems, Blood Disorders - Surgical History Thoracic Surgeries: Surgical HX of;: Lobectomy HEENT Surgeries: Patient denies: Eye Surgery, Tonsilectomy & Adenoidectomy Abdominal Surgeries: Surgical HX of: Appendectomy Reproductive Surgeries: Patient denies;: Genitourinary Surgery - Family History Family History: Reports;: Family Heart Disease (brother from [place] at age 76) , Family Hypertension Denies;: Family Cancer, Family Diabetes, Family Psychiatric Problems, Family Stroke - Social History Smoking Status: Former smoker (quit 12 years ago, smoked for approx. 20 years) Frequency of Alcohol Use: None Type of Drug Use: None Marital Status: Lives With:: Spouse Functional capacity: independent ambulation Physical Examination Vital Signs Temp Pulse Resp BP Pulse Ox 98.0 F 89 24 116/80 94 L 04/23/17 11:04 04/23/17 11:04 04/23/17 11:04 04/23/17 11:04 04/23/17 11:04 Other: General appearance: Pleasant and cooperative. Normal weight, mild to moderate conversational dyspnea. - Head Head exam: Present: normal inspection, normocephalic, atraumatic. Absent: hematoma, laceration - Eye Eye exam: Present: EOMI. Absent: conjunctival injection, nystagmus, periorbital swelling, scleral icterus, laceration to eyelids Pupils: Present: PERRL. Absent: constricted, dilated, fixed, irregular, unequal - ENT ENT exam: Present: normal exam, normal external ear exam - Neck Neck exam: Present: normal inspection. Absent: lymphadenopathy, meningismus, tenderness, thyromegaly - Respiratory Respiratory exam: Present: tachypnea, bilateral rhonchi . Absent: accessory muscle use, chest wall tenderness - Cardiovascular Cardiovascular exam: Present: Irregular rate and rhythm, tachycardia/ tachyarrhythmia. Absent: carotid bruit, gallop, JVD, rubs, murmur - GI/Abdominal GI/Abdominal exam: Present: normal bowel sounds, soft. Absent: distended, firm , guarding, hernia, mass, tenderness, rebound. - Extremities Exam Extremities exam: Present: normal inspection, normal capillary refill. Upper extremity pulses 2+. Lower extremity pulses 2+. Absent: calf tenderness, edema -Musculoskeletal Exam Musculoskeletal: Present: No Fluid Collection, No Pain, Normal Range of Motion - Back Exam Back exam: Present: normal inspection. Absent: muscle spasm, vertebral tenderness - Neurological Exam Neurological exam: Present: alert, oriented X3, grossly intact without resting or essential tremor - Psychiatric Psychiatric exam: Present: normal affect, normal mood - Skin Skin exam: Present: normal color, warm, dry, intact. Absent: cyanosis, diaphoretic, rash, urticaria Result/EKG - Labs CBC & BMP: 04/24/17 04:34 04/24/17 04:34 Lab Results: I have reviewed the past 24 hour labs Labs: Laboratory Results - last 24 hr 04/24/17 04/24/17 04/24/17 11:16 15:16 15:43 ABG pH 7.242 L ABG pCO2 77.1 H* ABG pO2 107.4 H ABG HCO3 32.4 H ABG Total CO2 34.8 H ABG O2 Saturation 97.2 ABG Base Excess 3.0 H POC Glucose 151 H 164 H 04/24/17 04/25/17 21:08 07:52 ABG pH ABG pCO2 ABG pO2 ABG HCO3 ABG Total CO2 ABG O2 Saturation ABG Base Excess POC Glucose 144 H 160 H - EKG EKG results: interpreted by me <Emma Loredo - Last Filed: 04/25/17 17:35> Assessment and Plan - Time spent with patient Time spent with patient: Greater than 30 minutes (1) Typical atrial flutter Status: Acute Current Visit: Yes (2) Right lower lobe lung mass Status: Acute Current Visit: Yes (3) Cough Status: Acute Current Visit: Yes (4) Shortness of breath Status: Acute Current Visit: Yes History of Present Illness - Consult Narrative History of present illness: Mr. Dodge is a 77 year old male with no past cardiac history who is now being evaluated for a mass in the chest that is left hilar region now status post bronchoscopy as described above. He is found to have tachydysrhythmia and typical atrial flutter. We been asked to see. Patient had bronchoscopy today and is currently on Lovenox which I think is appropriate until this final decision about any further aggressive or interventional procedures as needed. I saw and examined the patient and his room on telemetry and discussed with Ms. Waldemar rodgers. Please see the note as above. I concur. CC: Serafin Verduzco MD Review of systems: No palpitations no chest pain no orthopnea - Cardiovascular Cardiovascular: Present: dyspnea, dyspnea on exertion. Absent: chest pain at rest, chest pain with activity, claudication, diaphoresis, edema, radiating jaw , neck or arm pain, lightheadedness, orthopnea, palpitations, PND - Respiratory Respiratory: Present: cough Medical,Surgical,& Family Hx - Medical History Respiratory: History of: Respiratory Problems Musculoskeletal: History of: Musculoskeletal Problems - Social History Smoking Status: Former smoker Have you smoked in the last 12 months: No Frequency of Alcohol Use: None Type of Drug Use: None Marital Status: Lives With:: Spouse Functional capacity: independent ambulation Physical Examination Vital Signs Temp Pulse Resp BP Pulse Ox 98.0 F 89 24 116/80 94 L 04/23/17 11:04 04/23/17 11:04 04/23/17 11:04 04/23/17 11:04 04/23/17 11:04 General: Present: Appears Well Neck: Present: Supple Neck, Midline Trachea Cardiac: Present: Reg Rate and Rhythm (Atrial flutter with high degree AV block) , S1/S2. Absent: S4 Lungs: Present: Other (Diffuse rhonchi decreased breath sounds on the right) Neuro: Present: Cranial Nerve 2-12 Intact, Motor Function Intact Abdomen: Present: Soft, Active Bowel Sounds, No Masses, No Pulsations/Bruits Skin: Present: Clear Extremities: Present: Normal Gait, No Clubbing Result/EKG - Labs CBC & BMP: 04/24/17 04:34 04/24/17 04:34 Labs: Laboratory Results - last 24 hr 04/24/17 04/25/17 04/25/17 21:08 07:52 11:02 POC Glucose 144 H 160 H 148 H 04/25/17 15:47 POC Glucose 168 H
[2017-04-25] MEDS: DILTIAZEM INJ 100 MG in SODIUM CHLORIDE 0.9% 100 ML IV SCH ×2 (08:45→15:06)
[2017-04-25] MEDS: amLODIPine 10 MG TABLET PO SCH (08:58)
[2017-04-25] MEDS: PANTOPRAZOLE 40 MG TABLET PO SCH (08:58)
[2017-04-25] MEDS: ENOXAPARIN 80 MG/0.8 ML SYRINGE SUBCUT SCH ×2 (08:59→21:11)
--- NOTE | 2017-04-25 09:18 | EKG Report ---
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
--- NOTE | 2017-04-25 14:14 | Hospitalist Progress Note ---
Assessment and Plan (1) Right lower lobe lung mass Status: Acute Assessment and plan: The patient had biopsy of endobronchial mass yesterday. We await pathology. The patient's atrial fibrillation is having uncontrolled rate. Cardizem infusion has been restarted. It was previously successful in terminating the rhythm. Current Visit: Yes (2) Atrial fibrillation with RVR Status: Acute Current Visit: Yes (3) Abnormal CT scan, chest Status: Acute Current Visit: Yes Hospitalist: Subjective Interval history: The patient is resting in left lateral decubitus. He has congestion and tachycardia. The patient does not complain of angina. The patient had laparoscopic bronchoscopy yesterday with biopsies of an endobronchial mass. Exam - Constitutional Vitals: Period Temp Pulse Resp BP Sys/Srivastava Pulse Ox Last 24 Hr 97.5 F-99.1 F 75-145 18-22 122-165/56-90 93-99 General appearance: mild distress - Respiratory Respiratory exam: Present: decreased breath sounds - Cardiovascular Cardiovascular exam: Present: irregular rhythm - GI/Abdominal GI/Abdominal exam: Present: normal bowel sounds Results - Labs CBC & BMP: 04/24/17 04:34 04/24/17 04:34 Lab Results: I have reviewed the past 24 hour labs
[2017-04-25] MEDS: LEVOFLOXACIN 500 MG TABLET PO SCH (16:55)
[2017-04-25] MEDS: cefTRIAXone 1,000 MG in SODIUM CHLORIDE 0.9% 100 ML IV SCH (16:55)
--- NOTE | 2017-04-25 17:03 | ECHO Report ---
DodgeWilberto Exam Date: 04/25/2017 13:11 Referring Physician: Technologist: lisa Alegria ARDMS, RVT Age: 77 Ht (in): 73 Wt (lb): 175 Gender: M Exam Location: [facility] Echo Indications: Atrial fibrillation, Essential (primary) hypertension, Shortness of breath, Abnormal CT of chest, Dizziness, cough, Bronchitis BP: 122 / 56 HR: 74 Rhythm: Atrial fibrillation Technical Quality: IMPRESSIONS Left ventricular ejection fraction is estimated at 60 %. Tricuspid regurgitation velocities suggest a RVSP of 52 mmHg. MEASUREMENTS (Male / Female) Normal Values 2D ECHO LV Diastolic Diameter PLAX 3.2 cm 4.2 - 5.9 / 3.9 - 5.3 cm LV Systolic Diameter PLAX 1.8 cm LV Fractional Shortening PLAX 42.2 % IVS Diastolic Thickness 1.0 cm 0.6 - 1.0 / 0.6 - 0.9 cm LVPW Diastolic Thickness 1.1 cm 0.6 - 1.0 / 0.6 - 0.9 cm RV Internal Dim ED PLAX 2.5 cm Aortic Root Diameter 2.4 cm LA Systolic Diameter LX 3.7 cm 3.0 - 4.0 / 2.7 - 3.8 cm DOPPLER TR Peak Velocity 323.0 cm/s TR Peak Gradient 41.7 mmHg FINDINGS Left Ventricle Normal left ventricular cavity size. Normal left ventricular wall thickness. Left ventricular ejection fraction is estimated at 60 %. Right Ventricle The right ventricle is normal in size and function. Right Atrium The right atrium is normal in size. Left Atrium The left atrium is normal in size. Mitral Valve Morphologically normal mitral valve. Trace to mild mitral valve regurgitation. Aortic Valve Morphologically normal aortic valve without significant sclerosis or stenosis. There is no aortic regurgitation. Tricuspid Valve Morphologically normal tricuspid valve. Mild tricuspid valve regurgitation. Tricuspid regurgitation velocities suggest a RVSP of 52 mmHg. Pulmonic Valve Pulmonic valve not well visualized. Pericardium Normal pericardium without effusion. Aorta Normal ascending aorta dimension. Emma León (Electronically Signed) Final Date: 25 April 2017 17:02
--- NOTE | 2017-04-25 20:15 | Pathology Report from [facility] ---
[facility] [place] # : [id number] PATIENT NAME : Wilberto Dodge ORDERING DR : Fabiano Antunez MD CLINICAL HX: Abnormal CT, Bronchitis, Cough POST-OP DX: Same SPECIMEN INFO: Washing,Bronchial,LeftLung - 20 mls bloody, cloudy CLASS: V CLASS COMMENTS: Acute, chronic inflammation, malignant cells present.CELL BLOCK : Same CLASS LEGEND: CLASS 0 Material inadequate for diagnosis because of (see comment) CLASS I Absence of atypical or abnormal cells CLASS II Atypical Cytology but no evidence of malignancy CLASS III Cytology suggestive of but not conclusive for malignancy CLASS IV Cytology strongly suggestive of malignancy CLASS V Cytology conclusive for malignancy COLLECTED DATE: 04/24/2017 [facility] REPORT DATE: 04/25/2017 ELECTRONICALLY SIGNED BY: Luis Gomez III, M.D. 04/25/2017 - 14:09:06 RADHA
--- NOTE | 2017-04-25 20:18 | Pathology Report from [facility] ---
[facility] ACCESSION # : [id number] PATIENT NAME : Wilberto Ramirez ORDERING DR : JUAN M ESTRADA MD CLINICAL HX: Shortness of breath - CT at [facility] two weeks ago showing some mediastinal mass with partial extrinsic compression of left main bronchus. POST-OP DX: Same SPECIMEN INFO: Left main bronchus, biopsy x 2 GROSS DESCRIPTION: Received in formalin labeled WILBERTO RAMIREZ & LT MAIN BRONCHUS are two tavarez tissue fragments measuring together 0.4 x 0.2 cm submitted in one cassette. 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 COLLECTED DATE: 04/24/2017 [facility] REPORT DATE: 04/25/2017 ELECTRONICALLY SIGNED BY: Luis Gomez III, M.D. 04/25/2017 - 14:08:34 RADHA
[2017-04-25] MEDS ORDERED: DILTIAZEM CD 120 MG CAPSULE PO SCH (21:00)
[2017-04-25] MEDS: CETIRIZINE 10 MG TABLET PO SCH (21:11)
[2017-04-25] MEDS: METOPROLOL TARTRATE 50 MG TABLET PO SCH (21:11)
[2017-04-25] MEDS: HYDROcodone/CHLORPHENIRAMINE ER 5 ML UDCUP PO SCH (21:12)
[2017-04-26] MEDS: ALBUTEROL/IPRATROPIUM 3 ML NEB RESP TX SCH ×5 (00:49→23:16)
[2017-04-26] MEDS: SODIUM CHLORIDE 0.9% 1,000 ML IV SCH (01:00)
[2017-04-26] MEDS: methylPREDNISolone SOD SUC 125 MG/2 ML VIAL IV SCH ×2 (03:53→17:47)
[2017-04-26 04:53] LABS: Basophils % 0.1 % (0.0-0.8); Hematocrit 31.8 VOL% (42.0-52.0); Hemoglobin 9.8 GM/DL (14.0-18.0); Immature Granulocytes % 0.5 %; Immature Granulocytes Absolute 0.06 #; Lymphocytes # 0.5 10*3/uL (1.4-4.0); Lymphocytes % 4.4 % (21.2-54.2); Mean Corpuscular HGB Conc 30.8 GM/DL (32-36); Mean Corpuscular Hemoglobin 28 PG (27-34); Mean Corpuscular Volume 90.6 FL (87-102); Mean Platelet Volume 9.9 FL (9.6-12.0); Monocytes # 0.5 10*3/uL (0.11-0.8); Monocytes % 3.9 % (1.7-12.7); Neutrophils # 11.1 10*3/uL (1.4-7.4); Neutrophils % 91.1 % (38.7-73.9); Platelet Count 152 T/CUMM (130-400); Red Blood Count 3.51 MC/CUMM (3.8-5.5); Red Cell Distribution Width 13.9 % (9.3-17.3); White Blood Count 12.2 T/CUMM (4-12)
[2017-04-26 05:19] LABS: Lymphocytes 4 % (20-55); Segmented Neutrophils 94 % (50-85); Total Cells Counted 100
[2017-04-26 05:20] LABS: Hypochromasia 1+; Ovalocytes Slight; Platelet Estimate Normal
[2017-04-26 05:29] LABS: Calcium 8.2 MG/DL (8.5-10.1); Osmolality,Calculated 283.7 MOS/KG (273-304); Potassium 5.2 MMOL/L (3.5-5.1); Risk Ratio 3.27; VLDL CHOLESTEROL 10.2 MG/DL
--- NOTE | 2017-04-26 07:30 | Pulmonology Progress Note ---
Pulmonary - PN: Subj Interval history: This 77-year-old man came in with increased shortness of breath. He had a CT at [place] about 2 weeks ago showing some mediastinal mass with partial extrinsic compression of left main bronchus. He is in now with cough congestion and increased shortness of breath. He underwent fiberoptic bronchoscopy this morning. He has tumor compressing the left main bronchus but there did appear to be an element of it involving the mucosa. Biopsies were taken and should give us an answer. His left main bronchus is not obstructed enough to require a stent. Likely would need combination of radiation and chemotherapy depending on cell type. We are waiting on retrieval of old records from 30 years ago when he had surgery on his right long and a thoracoplasty. He had TB at that time. 04/25/2017 patient had episodes of tachyarrhythmia during the night. He had a carotid massage and some IV medications per hospitalist service. This morning it appears that he has atrial flutter with 2-1 block and heart rate around 150. He does not seem real symptomatic. He is alert. Yesterday his ABG showed CO2 retention when he was on 4 L of oxygen. We have reduced the oxygen. Have not repeated the ABGs. Pathology from biopsy done yesterday should be out tomorrow. 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 He had a decortication done by Dr. Matos. He had full treatment for TB and was cured. This accounts for his abnormal x-ray on the right side. He did have a thoracoplasty at that time as well. At this point we need cardiology to help with his tachyarrhythmia, and we await his pathology report. Shortly will not be a surgical candidate by the location of the tumor and physiologically. 04/26/17 pathology has come back showing squamous cell lung cancer. This partially obstructs his left main bronchus and involves the mediastinum. Not a candidate for surgery. Probably radiation and/or chemotherapy. Need oncology to see. Findings were discussed with the patient and his family. I Would be in favor of treatment as soon as can be done. Exam (Progress Note) - Constitutional Vitals: Period Temp Pulse Resp BP Sys/Srivastava Pulse Ox Last 24 Hr 97.4 F-98.8 F 16-145 16-20 122-147/42-80 79-98 Exam: Patient's alert oriented vital signs normal, except pulse about 110. Pupils react to light. Throat is clear. Neck supple no bruits. Chest reveals some rhonchi bilaterally. Heart irregular without murmurs. He has multifocal atrial tachycardia. Abdomen soft nontender no masses. Extremities no clubbing cyanosis edema. Calves nontender. Little change from yesterday, except pulse down to 100-110. He has atrial flutter with controlled rate. Results - Labs CBC & BMP: 04/26/17 03:59 04/26/17 03:59 Lab Results: I have reviewed the past 24 hour labs Assessment and Plan (1) Acute bronchitis Status: Acute Assessment and plan: He does have a cough and sputum production and rhonchi. We will treat him with antibiotics and steroids. Need to get cultures. Probably has some bronchopneumonia as well. 04/24/2017 being treated with antibiotics and steroids for acute bronchitis. 04/25/2017 continuing antibiotics and steroids. 04/26/17 this is better with steroids and antibiotics. These can be stopped in a couple of days. Current Visit: Yes (2) Abnormal CT scan, chest Status: Acute Assessment and plan: I have not been able to pull up the CT to review but reading the reports it indicates that he has some mediastinal adenopathy. I will plan bronchoscopy in the morning. Hopefully I will be able to review the films prior to that. he does have a remote history of some form of some form of tuberculosis. 04/24/2017 was able to review the CT and he has fairly large mass in the mediastinum/left hilum with compression of left main bronchus. He has had bronchoscopy this morning with biopsies. Await pathology from that. 04/25/2017 mass with partial obstruction of left main bronchus. Current Visit: Yes (3) Atrial fibrillation with RVR Status: Acute Assessment and plan: Rate is controlled. 04/24/2017. On the monitor during his bronchoscopy it is apparent that he has multifocal atrial tachycardia rather than atrial fibrillation at the present time. 04/25/2017 atrial flutter with RVR this morning. Cardiology to see 04/26/17 heart rate is now in the 100-110 range. Still has atrial flutter. Cardiology following. I am concerned about possible metastatic disease given that he has cancer in the left mediastinal/hilar area. Current Visit: Yes (4) Hilar lymphadenopathy Status: Acute Assessment and plan: Could be results of previous TB or he could have a malignancy. Plan to do bronchoscopy in the morning and see if anything is visible there. Also will get cultures for Mycobacterium and bacterial causes of this 04/24/2017 this is likely to be a primary malignancy. Biopsies are pending. See bronchoscopy report 04/25/2017 likely to be bronchogenic carcinoma. Pathology reported pending Current Visit: Yes (5) Squamous cell carcinoma of left lung Status: Acute Assessment and plan: Pathology has come back showing squamous cell cancer. It involves the left main bronchus. Involves the mediastinum and left hilum. Not candidate for surgery. Oncology to see. I would favor early radiation since he has partial obstruction of the left main bronchus. It is not severe enough obstruction to consider stenting. Current Visit: Yes
--- NOTE | 2017-04-26 10:08 | Cardiology Progress Note ---
<Janene Medeiros E - Last Filed: 04/26/17 09:41> Assessment and Plan - Time spent with patient Time spent with patient: Less than 30 minutes (1) Typical atrial flutter Status: Acute Assessment and plan: See plan of care listed below. Current Visit: Yes (2) Atrial fibrillation with RVR Status: Acute Assessment and plan: See plan of care listed below. Current Visit: Yes (3) Acute bronchitis Status: Acute Assessment and plan: See plan of care listed below. Current Visit: Yes (4) Abnormal CT scan, chest Status: Acute Assessment and plan: See plan of care listed below. Current Visit: Yes (5) Hilar lymphadenopathy Status: Acute Assessment and plan: See plan of care listed below. Current Visit: Yes (6) Former tobacco use Status: Chronic Assessment and plan: See plan of care listed below. Current Visit: Yes (7) Hypertension Status: Acute Assessment and plan: See plan of care listed below. Current Visit: Yes (8) Squamous cell carcinoma of left lung Status: Acute Assessment and plan: See plan of care listed below. 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 Dodge is a 77 year old male with no significant cardiac history. His admits his blood pressure has fluctuated through the years but he has never required [facility] antihypertensives. 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 Mr. Dodge presented to the hospital with complaints of progressive shortness of breath, productive cough, and congestion. Per recent CT done at [facility], he has a fairly large mass in the mediastinum/left hilum with partial obstruction of the left main bronchus. He has had new onset of recurrent paroxysmal atrial fibrillation and we were consulted to see him. Yesterday, he was in atrial flutter with rates in the 140's. We resumed IV Cardizem to help better control his rate. This improved throughout the day. He underwent bronchoscopy yesterday and is currently anticoagulated with Lovenox which is felt to be appropriate until a final decision is made regarding further aggressive or interventional procedures. Oncology has been consulted regarding his squamous cell lung cancer. He remains mildly tachypneic although he reports he feels somewhat better. His lungs sound a little better than yesterday. He continues to deny chest pain or palpitations and is unable to tell when his heart rate is elevated. ASSESSMENT/PLAN: 1. ATRIAL FLUTTER W/ RVR - Patient appears to be in atrial flutter per telemetry /EKG. This morning after his breathing treatment, HR was in the 140's. It has since come down to the 110s. We will continue adjusting his medications for optimal rate control. 2. ACUTE BRONCHITIS -pulmonology is following. He is being treated with antibiotics and steroids. 3. ABNORMAL CHEST CT -he has a fairly large mass in the mediastinum/left hilum with partial obstruction of the left main bronchus. He underwent bronchoscopy with biopsies and pathology has returned showing squamous cell carcinoma of the left lung. 4. HILAR LYMPHADENOPATHY -pulmonology is following. 5. FORMER TOBACCO ABUSE -patient has a history of 20 years smoking, reportedly quit approximately 12 years ago. 6. HYPERTENSION - He has had several elevated blood pressure readings since being in the hospital. I suspect he may have some underlying hypertension. We will continue to monitor. He was started on Norvasc 10 mg p.o. daily, Metoprolol 50mg PO BID, and Diltiazem CD 120mg PO QHS. 7. SQUAMOUS CELL CARCINOMA OF LEFT LUNG - Pathology returned showing squamous cell cancer involving left main bronchus and involving the mediastinum and left hilum. He is not felt to be a candidate for surgery. Oncology has been consulted. Dr. Loredo to follow with further plan and addendum. Exam (Progress Note) - Constitutional Vitals: Period Temp Pulse Resp BP Sys/Srivastava Pulse Ox Last 24 Hr 97.4 F-98.8 F 11-95 16-24 122-147/42-80 79-98 Exam: General appearance: Pleasant and cooperative. Normal weight, mild to moderate conversational dyspnea. - Head Head exam: Present: normal inspection, normocephalic, atraumatic. Absent: hematoma, laceration - Eye Eye exam: Present: EOMI. Absent: conjunctival injection, nystagmus, periorbital swelling, scleral icterus, laceration to eyelids Pupils: Present: PERRL. Absent: constricted, dilated, fixed, irregular, unequal - ENT ENT exam: Present: normal exam, normal external ear exam - Neck Neck exam: Present: normal inspection. Absent: lymphadenopathy, meningismus, tenderness, thyromegaly - Respiratory Respiratory exam: Present: tachypnea, bilateral rhonchi . Absent: accessory muscle use, chest wall tenderness - Cardiovascular Cardiovascular exam: Present: Irregular rate and rhythm, tachycardia/ tachyarrhythmia. Absent: carotid bruit, gallop, JVD, rubs, murmur - GI/Abdominal GI/Abdominal exam: Present: normal bowel sounds, soft. Absent: distended, firm , guarding, hernia, mass, tenderness, rebound. - Extremities Exam Extremities exam: Present: normal inspection, normal capillary refill. Upper extremity pulses 2+. Lower extremity pulses 2+. Absent: calf tenderness, edema -Musculoskeletal Exam Musculoskeletal: Present: No Fluid Collection, No Pain, Normal Range of Motion - Back Exam Back exam: Present: normal inspection. Absent: muscle spasm, vertebral tenderness - Neurological Exam Neurological exam: Present: alert, oriented X3, grossly intact without resting or essential tremor - Psychiatric Psychiatric exam: Present: normal affect, normal mood - Skin Skin exam: Present: normal color, warm, dry, intact. Absent: cyanosis, diaphoretic, rash, urticaria Result/EKG - Labs CBC & BMP: 04/26/17 03:59 04/26/17 03:59 Lab Results: I have reviewed the past 24 hour labs Labs: Laboratory Results - last 24 hr 04/25/17 04/25/17 04/25/17 11:02 15:47 21:14 WBC RBC Hgb Hct MCV MCH MCHC RDW Plt Count MPV Neut % (Auto) Lymph % (Auto) Pierce % (Auto) Eos % (Auto) Baso % (Auto) Neut # (Auto) Lymph # (Auto) Pierce # (Auto) Eos # (Auto) Baso # (Auto) Total Counted Immature Gran % Nucleated RBC % Immature Gran # Segmented Neutrophils Lymphocytes Monocytes Nucleated RBCs # Platelet Estimate Hypochromasia Ovalocytes Sodium Potassium Chloride Carbon Dioxide Anion Gap BUN Creatinine GFR Calculation BUN/Creatinine Ratio Glucose POC Glucose 148 H 168 H 119 H Calculated Osmolality Calcium Magnesium Triglycerides Cholesterol LDL Cholesterol VLDL Cholesterol HDL Cholesterol Heart Disease Risk Ratio 04/26/17 04/26/17 04/26/17 03:59 03:59 07:34 WBC 12.2 H D RBC 3.51 L Hgb 9.8 L Hct 31.8 L MCV 90.6 MCH 28 MCHC 30.8 L RDW 13.9 Plt Count 152 MPV 9.9 Neut % (Auto) 91.1 H Lymph % (Auto) 4.4 L Pierce % (Auto) 3.9 Eos % (Auto) 0.0 Baso % (Auto) 0.1 Neut # (Auto) 11.1 H Lymph # (Auto) 0.5 L Pierce # (Auto) 0.5 Eos # (Auto) 0.0 Baso # (Auto) 0.0 Total Counted 100 Immature Gran % 0.5 Nucleated RBC % 0.0 Immature Gran # 0.06 Segmented Neutrophils 94 H Lymphocytes 4 L Monocytes 2 Nucleated RBCs # 0.00 Platelet Estimate Normal Hypochromasia 1+ Ovalocytes Slight Sodium 138 Potassium 5.2 H Chloride 101 Carbon Dioxide 31 Anion Gap 11.2 BUN 30 H Creatinine 1.50 H GFR Calculation 60 BUN/Creatinine Ratio 20.00 Glucose 149 H POC Glucose 163 H Calculated Osmolality 283.7 Calcium 8.2 L Magnesium 2.0 Triglycerides 51 Cholesterol 183 LDL Cholesterol 119.0 VLDL Cholesterol 10.2 HDL Cholesterol 56 Heart Disease Risk Ratio 3.27 - EKG EKG results: interpreted by me (atrial flutter) <Emma Loredo - Last Filed: 04/26/17 10:53> Assessment and Plan (1) Typical atrial flutter Status: Acute Assessment and plan: As per HPI Current Visit: Yes (2) Shortness of breath Status: Acute Current Visit: Yes (3) Squamous cell carcinoma of left lung Status: Acute Current Visit: Yes Cardiology - PN: Subj Interval history: I saw him her Dar along with his this morning. We discussed the final pathology from his lung biopsy. He is to see oncology today. This does not appear to be a resectable type malignancy. He remains in atrial flutter but his rate is controlled. This is typical atrial flutter. Once it is clear that he is not on any additional procedures would recommend putting the patient on novel anticoagulant. Consideration would normally be given to ablation of this rhythm but I think given his malignancy diagnosis probably best we continue with AV keagan blockade and anticoagulation. I would anticipate that this would be a disease process that would alter his life expectancy and ablation would likely not be the best option in the setting. I discussed this with the patient and his . Await oncology input. Remainder as above. Continue Lovenox for now Exam (Progress Note) - Constitutional Vitals: Period Temp Pulse Resp BP Sys/Srivastava Pulse Ox Last 24 Hr 97.4 F-98.8 F 11-95 16-24 122-147/42-80 79-98 Exam: Cardiac exam is irregular but rate is controlled. His lung exam is without change from my yesterday. Remainder as above. Result/EKG - Labs CBC & BMP: 04/26/17 03:59 04/26/17 03:59 Labs: Laboratory Results - last 24 hr 04/25/17 04/25/17 04/25/17 11:02 15:47 21:14 WBC RBC Hgb Hct MCV MCH MCHC RDW Plt Count MPV Neut % (Auto) Lymph % (Auto) Pierce % (Auto) Eos % (Auto) Baso % (Auto) Neut # (Auto) Lymph # (Auto) Pierce # (Auto) Eos # (Auto) Baso # (Auto) Total Counted Immature Gran % Nucleated RBC % Immature Gran # Segmented Neutrophils Lymphocytes Monocytes Nucleated RBCs # Platelet Estimate Hypochromasia Ovalocytes Sodium Potassium Chloride Carbon Dioxide Anion Gap BUN Creatinine GFR Calculation BUN/Creatinine Ratio Glucose POC Glucose 148 H 168 H 119 H Calculated Osmolality Calcium Magnesium Triglycerides Cholesterol LDL Cholesterol VLDL Cholesterol HDL Cholesterol Heart Disease Risk Ratio 04/26/17 04/26/17 04/26/17 03:59 03:59 07:34 WBC 12.2 H D RBC 3.51 L Hgb 9.8 L Hct 31.8 L MCV 90.6 MCH 28 MCHC 30.8 L RDW 13.9 Plt Count 152 MPV 9.9 Neut % (Auto) 91.1 H Lymph % (Auto) 4.4 L Pierce % (Auto) 3.9 Eos % (Auto) 0.0 Baso % (Auto) 0.1 Neut # (Auto) 11.1 H Lymph # (Auto) 0.5 L Pierce # (Auto) 0.5 Eos # (Auto) 0.0 Baso # (Auto) 0.0 Total Counted 100 Immature Gran % 0.5 Nucleated RBC % 0.0 Immature Gran # 0.06 Segmented Neutrophils 94 H Lymphocytes 4 L Monocytes 2 Nucleated RBCs # 0.00 Platelet Estimate Normal Hypochromasia 1+ Ovalocytes Slight Sodium 138 Potassium 5.2 H Chloride 101 Carbon Dioxide 31 Anion Gap 11.2 BUN 30 H Creatinine 1.50 H GFR Calculation 60 BUN/Creatinine Ratio 20.00 Glucose 149 H POC Glucose 163 H Calculated Osmolality 283.7 Calcium 8.2 L Magnesium 2.0 Triglycerides 51 Cholesterol 183 LDL Cholesterol 119.0 VLDL Cholesterol 10.2 HDL Cholesterol 56 Heart Disease Risk Ratio 3.27
[2017-04-26] MEDS: ENOXAPARIN 80 MG/0.8 ML SYRINGE SUBCUT SCH ×2 (10:31→20:50)
[2017-04-26] MEDS: METOPROLOL TARTRATE 50 MG TABLET PO SCH ×2 (10:32→20:51)
[2017-04-26] MEDS: INSULIN LISPRO 100 UNIT/ML SUBCUT SCH ×4 (10:32→21:10)
[2017-04-26] MEDS: PANTOPRAZOLE 40 MG TABLET PO SCH (10:32)
--- NOTE | 2017-04-26 10:36 | Hospitalist Progress Note ---
Assessment and Plan (1) Right lower lobe lung mass Status: Acute Assessment and plan: The patient had biopsy of endobronchial mass yesterday Which confirmed suspicion of squamous cell carcinoma. the patient presently has atrial flutter with 4-1 conduction. Oral Cardizem has been restarted. Cardizem infusion is being weaned. The patient continues on full anticoagulation to the atrial arrhythmia. Current Visit: Yes (2) Atrial fibrillation with RVR Status: Acute Current Visit: Yes (3) Abnormal CT scan, chest Status: Acute Current Visit: Yes Hospitalist: Subjective Interval history: The patient is sitting up on the side of the bed. He has moderate dyspnea. The patient does not have any hemoptysis at present. We discussed his diagnosis of squamous cell carcinoma lung. Exam - Constitutional Vitals: Period Temp Pulse Resp BP Sys/Srivastava Pulse Ox Last 24 Hr 97.4 F-98.8 F 11-95 16-24 122-147/42-80 79-98 General appearance: mild distress - Respiratory Respiratory exam: Present: prolonged expiratory phase - Cardiovascular Cardiovascular exam: Present: irregular rhythm - GI/Abdominal GI/Abdominal exam: Present: normal bowel sounds Results - Labs CBC & BMP: 04/26/17 03:59 04/26/17 03:59 Lab Results: I have reviewed the past 24 hour labs - EKG EKG shows: atrial fibrillation (Intermittent 3-1 block of atrial flutter)
[2017-04-26] MEDS: DILTIAZEM CD 240 MG CAPSULE PO SCH (14:07)
--- NOTE | 2017-04-26 14:09 | XRay Report ---
XR chest 1V portable Indication: Shortness of breath Comparison: Chest x-ray 04/25/2017 Technique: Portable AP chest was performed. Findings: Borderline to mild cardiomegaly is stable. Mild ectasia of the thoracic aorta is stable. Pulmonary arteries are prominent and a component of pulmonary arterial hypertension is not excluded. Minimal reticular interstitial opacities within the left lung base have slightly increased since comparison which may reflect difference in inspiration. The right lung and right chest wall is stable. Impression: 1. Minimal interval increase in reticular interstitial opacities in the left lung base may reflect difference in inspiration and atelectasis. Otherwise stable appearance of the chest. 04/26/2017 2:05 PM PROCEDURE INTERPRETED AT [facility] DEPARTMENT OF RADIOLOGY Final Report Signed by: Dr. Dalton Vance
[2017-04-26 14:19] LABS: Allen Test Positive
[2017-04-26 14:22] LABS: ABG Base Excess 2.8 MMOL/L (-2.5-2.5); ABG HCO3 33.3 MMOL/L (20-26); ABG PO2 54.9 MM HG (80-95); ABG TCO2 36.1 MMOL/L (23-27)
[2017-04-26 14:25] LABS: ABG PCO2 90.6 MM HG (35-48); ABG PH 7.183 (7.35-7.45)
[2017-04-26 15:37] LABS: ABG Base Excess 2.7 MMOL/L (-2.5-2.5); ABG HCO3 31.6 MMOL/L (20-26); ABG Oxygen Saturation 63.4 % (95-100); ABG PH 7.249 (7.35-7.45); ABG TCO2 33.9 MMOL/L (23-27); Allen Test Positive
[2017-04-26 15:39] LABS: ABG PO2 37.8 MM HG (80-95)
--- NOTE | 2017-04-26 16:04 | Pulmonology Progress Note ---
Pulmonary - PN: Subj Interval history: This is a 77-year-old black male who had an altered level of consciousness earlier today. He was also having some mild shallow respirations with a good bit of large airway congestion. This patient has a partial obliteration of the right chest as part of her previous treatment for pulmonary tuberculosis. 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 04/24/2017 ABGs on unknown FiO2 showed a pH of 7.42, PCO2 of 77.1 and a PO2 of 107.4 with a bicarb of 32.4. When I was called about the patient's status we got blood gases on FiO2 28% and these showed a pH 7.18, PCO2 of 90.6, PO2 of 54.9 and a bicarb of 33.3. I took the patient off of oxygen and 1 hour later repeat his ABGs. He had a pH of 7.25, PCO2 of 74 and a PO2 of 37.8 with a bicarb of 31.6. At that time the patient's and his nurse said he was much more awake and alert and he was cooperative and he seemed to be back to what everyone thought was his normal state. I am going to repeat his ABGs on another 30 minutes before I decide whether or not to put him on a very low amount of oxygen such as 1/2 L/min. H&H is 9.8/31.8. White count is 12,200.. Electrolytes are normal. Creatinine is 1.5 with a BUN of 30. Microbiology shows that his proximal specimens are growing Pseudomonas. Patient is on Levaquin and Rocephin. Based on the best JOSE is I am going to switch his Rocephin to Fortaz 1 g IV piggyback every 8 hours. Physical exam. Psychiatric. Oriented 3. Cooperative. Coherent. Vital signs. See below Chest. Symmetrical. Clear breath sounds. I do not hear stridor. Heart. No gallop Abdomen nondistended. Positive bowel sounds Lower extremities. Nothing to suggest deep venous thrombophlebitis Neck. Symmetrical. No meningismus. Lymphatics. No submandibular cervical supraclavicular adenopathy. Neurologic. Cranial nerves are grossly intact. Patient moves all 4 extremities. The remainder the physical exam is non-contributory. Impression. . #1 altered mental status secondary to hypercarbia. 2. CO2 retainer. 3. Hypoxemia. 4. Endobronchial squamous cell carcinoma. 5. Partial right thoracoplasty Exam (Progress Note) - Constitutional Vitals: Period Temp Pulse Resp BP Sys/Srivastava Pulse Ox Last 24 Hr 97.4 F-98.8 F 11- 16-24 129-147/42-80 79-98 Results - Labs CBC & BMP: 04/26/17 03:59 04/26/17 03:59
[2017-04-26 16:46] LABS: ABG Base Excess 2.5 MMOL/L (-2.5-2.5); ABG HCO3 25.9 MMOL/L (20-26); ABG Oxygen Saturation 55.3 % (95-100); ABG PH 7.262 (7.35-7.45); ABG TCO2 29.3 MMOL/L (23-27)
[2017-04-26 17:00] LABS: ABG PCO2 69.9 MM HG (35-48); ABG PO2 33.9 MM HG (80-95)
[2017-04-26] MEDS ORDERED: PROPOFOL 1,000 MG/100 ML BOTTLE IV ONE (17:18)
[2017-04-26] MEDS: DILTIAZEM INJ 100 MG in SODIUM CHLORIDE 0.9% 100 ML IV SCH (17:49)
[2017-04-26 18:00] LABS: ABG Base Excess -2.8 MMOL/L (-2.5-2.5); ABG HCO3 22.1 MMOL/L (20-26); ABG PCO2 56.9 MM HG (35-48); ABG PH 7.251 (7.35-7.45); ABG TCO2 23.4 MMOL/L (23-27)
[2017-04-26] MEDS: LEVOFLOXACIN 500 MG TABLET PO SCH (18:12)
--- NOTE | 2017-04-26 19:11 | XRay Report ---
Exam: XR chest 1V portable Indication: Intubation Comparison study: 04/26/17 at 1:44 PM Findings: Since the prior study, there has been interval placement of an endotracheal tube. The tip terminates approximately 3 cm from the cory. There is similar mild cardiomegaly. Perihilar and right lung airspace opacities and probable postsurgical/posttraumatic and/or scarring changes within the lung parenchyma are noted. There is no pneumothorax. Opacity in the right apex may be related to prior infection/trauma/surgery and appear unchanged. There is no acute osseous abnormality. Impression: Endotracheal tube now in place. There is no pneumothorax. Probable chronic scarring changes within the right more so than left parenchyma appear essentially unchanged. PROCEDURE INTERPRETED AT [facility] DEPARTMENT OF RADIOLOGY Final Report Signed by: José Luis Clay
[2017-04-26] MEDS ORDERED: NACL 0.9% IV SCH (19:30)
[2017-04-26] MEDS ORDERED: DEXTROSE 5% IV SCH (19:30)
[2017-04-26] MEDS ORDERED: SODIUM ACETATE IV SCH (19:30)
[2017-04-26] MEDS: PROPOFOL 1,000 MG/100 ML BOTTLE IV SCH (20:48)
[2017-04-26] MEDS: FAMOTIDINE 20 MG/2 ML VIAL IV SCH (20:49)
[2017-04-26] MEDS: HYDROcodone/CHLORPHENIRAMINE ER 5 ML UDCUP PO SCH ×2 (20:50→21:04)
[2017-04-26] MEDS: CETIRIZINE 10 MG TABLET PO SCH (20:51)
[2017-04-26] MEDS: SODIUM ACETATE 100 MEQ in DEXTROSE 5% NACL 0.22% 1,000 ML IV SCH (21:00)
[2017-04-27] MEDS: PROPOFOL 1,000 MG/100 ML BOTTLE IV SCH ×5 (01:12→23:58)
[2017-04-27] MEDS: methylPREDNISolone SOD SUC 125 MG/2 ML VIAL IV SCH ×2 (03:38→16:57)
[2017-04-27 04:00] LABS: ABG Base Excess 5.2 MMOL/L (-2.5-2.5); ABG HCO3 29.2 MMOL/L (20-26); ABG Oxygen Saturation 99.6 % (95-100); ABG PCO2 39.8 MM HG (35-48); ABG PH 7.473 (7.35-7.45); ABG TCO2 26.7 MMOL/L (23-27); Allen Test Positive; Pt O2 Delivery Device Ventilator
[2017-04-27 06:03] LABS: Hematocrit 29.6 VOL% (42.0-52.0); Hemoglobin 9.8 GM/DL (14.0-18.0); Immature Granulocytes % 0.9 %; Immature Granulocytes Absolute 0.08 #; Lymphocytes # 0.6 10*3/uL (1.4-4.0); Lymphocytes % 6.1 % (21.2-54.2); Mean Corpuscular HGB Conc 33.1 GM/DL (32-36); Mean Corpuscular Hemoglobin 29 PG (27-34); Mean Corpuscular Volume 87.6 FL (87-102); Mean Platelet Volume 11.4 FL (9.6-12.0); Monocytes # 0.6 10*3/uL (0.11-0.8); Monocytes % 6.1 % (1.7-12.7); NRBC # 0.04 10*3/uL; Neutrophils # 7.9 10*3/uL (1.4-7.4); Neutrophils % 86.9 % (38.7-73.9); Red Blood Count 3.38 MC/CUMM (3.8-5.5); White Blood Count 9.1 T/CUMM (4-12)
[2017-04-27 06:04] LABS: Platelet Count 102 T/CUMM (130-400)
[2017-04-27 06:25] LABS: Calcium 8.4 MG/DL (8.5-10.1); Magnesium 2.2 MG/DL (1.8-2.4); Osmolality,Calculated 284.8 MOS/KG (273-304); Potassium 4.9 MMOL/L (3.5-5.1)
--- NOTE | 2017-04-27 06:56 | Cardiology Progress Note ---
Assessment and Plan (1) Typical atrial flutter Status: Acute Assessment and plan: The patient has now converted to normal sinus rhythm. We will continue to follow with AV keagan blockade agents. For now continue with Lovenox he may need novel anticoagulant long-term. Current Visit: Yes (2) Shortness of breath Status: Acute Current Visit: Yes (3) Squamous cell carcinoma of left lung Status: Acute Current Visit: Yes Cardiology - PN: Subj Interval history: The events are noted from Dr. Boggs's note patient had hypoxic respiratory failure was subsequent transferred down to the ICU and ultimately intubated. He is now on the ventilator. He has converted to normal sinus rhythm. Exam (Progress Note) - Constitutional Vitals: Period Temp Pulse Resp BP Sys/Srivastava Pulse Ox Last 24 Hr 96.7 F-98.4 F 11-112 12-24 78-143/52-73 75-100 General appearance: normal weight - Respiratory Respiratory exam: Present: rhonchi (Greater on the right) - Cardiovascular Cardiovascular exam: Present: regular rate and rhythm (No gallop or rub rate is controlled at 70 normal sinus rhythm) - GI/Abdominal GI/Abdominal exam: Present: normal bowel sounds - Extremities Exam Extremities exam: Present: normal inspection - Psychiatric Psychiatric exam: Present: other (Sedated on the ventilator) Result/EKG - Labs CBC & BMP: 04/27/17 05:15 04/27/17 05:15 Labs: Laboratory Results - last 24 hr 04/26/17 04/26/17 04/26/17 07:34 11:37 14:10 WBC RBC Hgb Hct MCV MCH MCHC RDW Plt Count MPV Neut % (Auto) Lymph % (Auto) [place] % (Auto) Eos % (Auto) Baso % (Auto) Neut # (Auto) Lymph # (Auto) [place] # (Auto) Eos # (Auto) Baso # (Auto) Immature Gran % Nucleated RBC % Immature Gran # Nucleated RBCs # ABG pH 7.183 L* ABG pCO2 90.6 H* ABG pO2 54.9 L ABG HCO3 33.3 H ABG Total CO2 36.1 H ABG O2 Saturation 81.0 L ABG Base Excess 2.8 H FiO2 28.00 Sodium Potassium Chloride Carbon Dioxide Anion Gap BUN Creatinine GFR Calculation BUN/Creatinine Ratio Glucose POC Glucose 163 H 189 H Calculated Osmolality Calcium Magnesium 04/26/17 04/26/17 04/26/17 15:25 15:52 16:40 WBC RBC Hgb Hct MCV MCH MCHC RDW Plt Count MPV Neut % (Auto) Lymph % (Auto) [place] % (Auto) Eos % (Auto) Baso % (Auto) Neut # (Auto) Lymph # (Auto) [place] # (Auto) Eos # (Auto) Baso # (Auto) Immature Gran % Nucleated RBC % Immature Gran # Nucleated RBCs # ABG pH 7.249 L 7.262 L ABG pCO2 74.0 H* 69.9 H* ABG pO2 37.8 L* 33.9 L* ABG HCO3 31.6 H 25.9 ABG Total CO2 33.9 H 29.3 H ABG O2 Saturation 63.4 L 55.3 L ABG Base Excess 2.7 H 2.5 FiO2 21.00 21.00 Sodium Potassium Chloride Carbon Dioxide Anion Gap BUN Creatinine GFR Calculation BUN/Creatinine Ratio Glucose POC Glucose 163 H Calculated Osmolality Calcium Magnesium 04/26/17 04/26/17 04/27/17 17:50 21:02 03:36 WBC RBC Hgb Hct MCV MCH MCHC RDW Plt Count MPV Neut % (Auto) Lymph % (Auto) [place] % (Auto) Eos % (Auto) Baso % (Auto) Neut # (Auto) Lymph # (Auto) [place] # (Auto) Eos # (Auto) Baso # (Auto) Immature Gran % Nucleated RBC % Immature Gran # Nucleated RBCs # ABG pH 7.251 L 7.473 H ABG pCO2 56.9 H 39.8 ABG pO2 297.0 H 150.0 H ABG HCO3 22.1 29.2 H ABG Total CO2 23.4 26.7 ABG O2 Saturation 100.0 99.6 ABG Base Excess -2.8 L 5.2 H FiO2 60.00 Sodium Potassium Chloride Carbon Dioxide Anion Gap BUN Creatinine GFR Calculation BUN/Creatinine Ratio Glucose POC Glucose 153 H Calculated Osmolality Calcium Magnesium 04/27/17 04/27/17 05:15 05:15 WBC 9.1 RBC 3.38 L Hgb 9.8 L Hct 29.6 L MCV 87.6 MCH 29 MCHC 33.1 RDW 14.0 Plt Count 102 L D MPV 11.4 Neut % (Auto) 86.9 H Lymph % (Auto) 6.1 L [place] % (Auto) 6.1 Eos % (Auto) 0.0 Baso % (Auto) 0.0 Neut # (Auto) 7.9 H Lymph # (Auto) 0.6 L [place] # (Auto) 0.6 Eos # (Auto) 0.0 Baso # (Auto) 0.0 Immature Gran % 0.9 Nucleated RBC % 0.4 Immature Gran # 0.08 Nucleated RBCs # 0.04 ABG pH ABG pCO2 ABG pO2 ABG HCO3 ABG Total CO2 ABG O2 Saturation ABG Base Excess FiO2 Sodium 137 Potassium 4.9 Chloride 101 Carbon Dioxide 25 Anion Gap 15.9 H BUN 39 H Creatinine 1.80 H GFR Calculation 48 BUN/Creatinine Ratio 21.00 H Glucose 161 H POC Glucose Calculated Osmolality 284.8 Calcium 8.4 L Magnesium 2.2
[2017-04-27] MEDS: FAMOTIDINE 20 MG/2 ML VIAL IV SCH ×2 (07:01→18:29)
[2017-04-27] MEDS: ALBUTEROL/IPRATROPIUM 3 ML NEB RESP TX SCH ×3 (08:10→21:00)
--- NOTE | 2017-04-27 08:23 | Pulmonology Progress Note ---
Pulmonary - PN: Subj Interval history: This is a 77-year-old black male who had an altered level of consciousness earlier today. He was also having some mild shallow respirations with a good bit of large airway congestion. This patient has a partial obliteration of the right chest as part of her previous treatment for pulmonary tuberculosis. 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 04/24/2017 ABGs on unknown FiO2 showed a pH of 7.42, PCO2 of 77.1 and a PO2 of 107.4 with a bicarb of 32.4. When I was called about the patient's status we got blood gases on FiO2 28% and these showed a pH 7.18, PCO2 of 90.6, PO2 of 54.9 and a bicarb of 33.3. I took the patient off of oxygen and 1 hour later repeat his ABGs. He had a pH of 7.25, PCO2 of 74 and a PO2 of 37.8 with a bicarb of 31.6. At that time the patient's and his nurse said he was much more awake and alert and he was cooperative and he seemed to be back to what everyone thought was his normal state. I am going to repeat his ABGs on another 30 minutes before I decide whether or not to put him on a very low amount of oxygen such as 1/2 L/min. H&H is 9.8/31.8. White count is 12,200.. Electrolytes are normal. Creatinine is 1.5 with a BUN of 30. Microbiology shows that his proximal specimens are growing Pseudomonas. Patient is on Levaquin and Rocephin. Based on the best JOSE is I am going to switch his Rocephin to Fortaz 1 g IV piggyback every 8 hours. Physical exam. Psychiatric. Oriented 3. Cooperative. Coherent. Vital signs. See below Chest. Symmetrical. Clear breath sounds. I do not hear stridor. Heart. No gallop Abdomen nondistended. Positive bowel sounds Lower extremities. Nothing to suggest deep venous thrombophlebitis Neck. Symmetrical. No meningismus. Lymphatics. No submandibular cervical supraclavicular adenopathy. Neurologic. Cranial nerves are grossly intact. Patient moves all 4 extremities. The remainder the physical exam is non-contributory. Impression. . #1 altered mental status secondary to hypercarbia. 2. CO2 retainer. 3. Hypoxemia. 4. Endobronchial squamous cell carcinoma. 5. Partial right thoracoplasty 04/27/2017. Patient was stable when I saw him last night at 1 follow-up ABGs were drawn he developed acute ventricular tachycardia. He was coded. He required intubation mechanical ventilation. This morning his chest x-ray shows a clear left lung field. He has had a thoracoplasty on the right and there is some increased markings at the bases. Endotracheal tube appears to be in good position. ABGs on mechanical ventilation and FiO2 of 60% shows a pH 7.47 PCO2 of 39.8 PO2 of 150 and a bicarb of 29.2. I have decreased the patient's rate and I have decreased his FiO2. He is a CO2 retainer and I suspect he will require PO2 and at least in the mid 50s to become extubated. I am starting weaning protocol and I will reevaluate his blood gases in about 30-45 minutes. He will also require physical therapy protocol. Labs been reviewed. Medicines have been reviewed. Patient's on antibiotics for pulmonary Pseudomonas infection and is on Solu-Medrol 60 IV push every 12 hours. He is on proton pump inhibitors and expectorants. He is also on Cardizem and Lovenox. Physical exam. Vital signs. See below Face. Symmetrical. Lips and tongue are normal. Neck. No meningismus. Lymphatics. No submandibular cervical supraclavicular adenopathy. Chest is fairly clear. Heart no gallop Abdomen. Nondistended. Rare bowel sounds. lower extremities. Possible mild venous stasis The remainder the physical exam is noncontributory. Plan. 1. Mechanical ventilation weaning procedures 2. Physical therapy protocol 3. Doppler venograms 4 see my note above Exam (Progress Note) - Constitutional Vitals: Period Temp Pulse Resp BP Sys/Srivastava Pulse Ox Last 24 Hr 96.7 F-98.4 F 59-112 12-24 78-143/52-73 75-100 Results - Labs CBC & BMP: 04/27/17 05:15 04/27/17 05:15
[2017-04-27] MEDS: INSULIN LISPRO 100 UNIT/ML SUBCUT SCH ×4 (08:44→21:19)
[2017-04-27] MEDS: DILTIAZEM INJ 100 MG in SODIUM CHLORIDE 0.9% 100 ML IV SCH (09:03)
[2017-04-27 09:23] LABS: ABG Base Excess 6.1 MMOL/L (-2.5-2.5); ABG HCO3 32.1 MMOL/L (20-26); ABG Oxygen Saturation 82.7 % (95-100); ABG PCO2 53.1 MM HG (35-48); ABG PH 7.399 (7.35-7.45); ABG PO2 49.9 MM HG (80-95); ABG TCO2 33.7 MMOL/L (23-27)
--- NOTE | 2017-04-27 09:29 | Oncology Consult Note ---
Assessment and Plan (1) Squamous cell carcinoma of left lung Status: Acute Assessment and plan: At this point in time there is very little today from oncology standpoint. If he survives his current hospitalization and wants further treatment, he will need further workup with a PET scan as an outpatient. Given his advanced age his prognosis is very poor. His likely only treatment option will be concurrent chemotherapy and radiation unless diffuse metastatic disease is found on further workup. Again his advanced age, numerous comorbidities, and current illness make a strong argument for just doing comfort measures only if he has ever discharged home. I will continue to follow him and we will make a plan accordingly. Current Visit: Yes (2) Respiratory failure Status: Acute Current Visit: Yes (3) Hilar lymphadenopathy Status: Acute Current Visit: Yes History of Present Illness History of present illness: Mr. Dodge is a 77 year old male with a history of pulmonary tuberculosis that had some type of surgical treatment of the right lung for this in the distant past who is currently admitted now and found to have a left lung malignancy with mediastinal and hilar adenopathy. Bronchoscopy was done that showed a left mainstem endobronchial lesion. Biopsy return back as squamous cell carcinoma. He went into respiratory failure last night and was subsequently intubated. He remains in ICU now. Of course given his current condition unable to get any kind of history. He will need further staging with a PET scan if he survives his current hospitalization. His prognosis is very poor given his advanced age, acute illness, and advanced malignancy. It is very reasonable at this point to consider conservative measures only with hospice if his condition does not improve. I will continue to follow him along with you. I will try to reach at the family and discuss his case from a cancer standpoint with them. Home Medications Medication Instructions Recorded Confirmed Type Albuterol Liquid [Proventil Liquid] 10 ml PO TID 04/23/17 04/23/17 History Albuterol Sulfate [Ventolin HFA] 1 puff INH Q6H PRN 04/23/17 04/23/17 History Cetirizine HCl [Cetirizine Tab] 10 mg PO BEDTIME 04/23/17 04/23/17 History HYDROcodone/CHLORPHEN ER SUSP 5 ml PO BEDTIME 04/23/17 04/23/17 History [Tussionex] methylPREDNISolone DOSEPAK [Medrol 4 mg PO DAILY 04/23/17 04/23/17 History Dosepak] Allergies Allergy/AdvReac Type Severity Reaction Status Date / Time No Known Allergies Allergy Unverified 04/09/17 18:22 Medical,Surgical,& Family Hx - Medical History Cardio: No history of: Cardiac Dysrhythmia, CHF, CAD, MS HEENT: No history of: Ear Problem, Eye Problem, Dental Problems, Glaucoma, Oral Cancer, HEENT Problems Endocrine: No history of: Diabetes Mellitus (IDDM), Diabetes Mellitus (NIDDM), Dyslipidemia Respiratory: History of: Bronchitis, Respiratory Problems Musculoskeletal: History of: Musculoskeletal Problems Hematology: No history of: Anemia, Bleeding Problems, Blood Disorders - Surgical History Thoracic Surgeries: Surgical HX of;: Lobectomy HEENT Surgeries: Patient denies: Eye Surgery, Tonsilectomy & Adenoidectomy Abdominal Surgeries: Surgical HX of: Appendectomy Reproductive Surgeries: Patient denies;: Genitourinary Surgery - Family History Family History: Reports;: Family Heart Disease (brother from [place] at age 76) , Family Hypertension Denies;: Family Cancer, Family Diabetes, Family Psychiatric Problems, Family Stroke - Social History Smoking Status: Former smoker Frequency of Alcohol Use: None Type of Drug Use: None ROS unobtainable: due to endotracheal tube Exam - Constitutional Vitals: Period Temp Pulse Resp BP Sys/Srivastava Pulse Ox Last 24 Hr 96.7 F-98.4 F 59-112 12-24 78-143/52-73 75-100 General appearance: normal weight, no acute distress - Head Head Exam: Present: normocephalic, atraumatic - Eye Eye Exam: Present: EOMI Pupils: Present: PERRL - ENT ENT exam: Present: other (Endotracheal tube in place) - Neck Neck exam: Absent: lymphadenopathy, thyromegaly - Respiratory Respiratory exam: Present: CTAB. Absent: wheezes - Cardiovascular Cardiovascular exam: Present: RRR. Absent: irregular rhythm, JVD - GI/Abdominal GI/Abdominal exam: Present: soft. Absent: ascites, distended, mass - Skin Skin exam: Present: warm, dry Results - Labs CBC & BMP: 04/27/17 05:15 04/27/17 05:15 Lab Results: I have reviewed the past 24 hour labs - Diagnostic Findings Procedure: Chest x-ray: report reviewed by me, CT - chest: report reviewed by me
[2017-04-27] MEDS: DILTIAZEM 30 MG TABLET PO SCH ×4 (09:51→23:00)
[2017-04-27] MEDS: ENOXAPARIN 80 MG/0.8 ML SYRINGE SUBCUT SCH ×2 (09:51→21:18)
[2017-04-27] MEDS: METOPROLOL TARTRATE 50 MG TABLET PO SCH ×2 (09:51→21:19)
[2017-04-27] MEDS ORDERED: GLUCAGON 1 MG VIAL IM PRN (09:53)
[2017-04-27] MEDS ORDERED: DEXTROSE 50% 25 GM/50 ML VIAL IV PRN (09:53)
--- NOTE | 2017-04-27 10:02 | Hospitalist Progress Note ---
Assessment and Plan (1) Right lower lobe lung mass Status: Acute Assessment and plan: The patient had biopsy of endobronchial mass on which confirmed suspicion of squamous cell carcinoma. the patient presently has atrial arrhythmia. Cardizem infusion continues. The patient continues on full anticoagulation on account of the atrial arrhythmia. We are going to treat the patient's lung disease and hopefully wean him from the ventilator early next week. I am going to start the patient on enteral feedings with NG tube. Current Visit: Yes (2) Atrial fibrillation with RVR Status: Acute Current Visit: Yes (3) Abnormal CT scan, chest Status: Acute Current Visit: Yes Hospitalist: Subjective Interval history: The patient is resting quietly on ventilator this morning. Hemodynamics are stable and the patient has reduced oxygen to 50%. Nasogastric tube is in place. Exam - Constitutional Vitals: Period Temp Pulse Resp BP Sys/Srivastava Pulse Ox Last 24 Hr 96.7 F-98.4 F 59-112 12-24 78-143/52-73 75-100 Exam: Constitutional System: No distress. No tremulousness. The patient is sedated and mechanically ventilated Head: Normocephalic, atraumatic. Ears, Nose and Throat System: No evidence of Otitis or Mastoiditis. No epistaxis or discharge Eyes System: Pupils equal, round, and reactive. Extraocular muscles intact. Neck: Supple, without adenopathy, No jugular venous distention. No thyromegaly , neck mass, or prior surgery apparent. Respiratory System: Chest rhonchi on the right and reduced lung sounds on the left to auscultation. Cardiovascular System: Heart with irregular rate. No murmur. GI System: Abdomen soft, nontender. Normo active bowel sounds present. Musculoskeletal System: limbs with no pedal edema. Full distal pulses. Results - Labs CBC & BMP: 04/27/17 05:15 04/27/17 05:15 Lab Results: I have reviewed the past 24 hour labs
--- NOTE | 2017-04-27 12:05 | Ultrasound Report ---
Indication: Lower extremity edema Duplex scan of the bilateral lower extremity veins Technique: Duplex scan of the bilateral lower extremity veins using B-mode/grayscale imaging and Doppler spectral analysis and color flow Findings: Major venous structures of the bilateral lower extremity demonstrate a normal course and caliber. There is no evidence of deep vein thrombosis. No abnormal intrinsic echogenic lesions are demonstrated in the scanned blood vessels. Veins demonstrate good compressibility with normal color flow study and spectral analysis. Impression: Unremarkable duplex imaging of the bilateral lower extremity veins. No evidence of DVT PROCEDURE INTERPRETED AT [facility] DEPARTMENT OF RADIOLOGY Final Report Signed by: José Luis Clay
--- NOTE | 2017-04-27 13:29 | XRay Report ---
Exam: XR chest 1V portable Indication: Intubated, respiratory failure Comparison study: 05/14/2017 chest radiograph Findings: Endotracheal tube is in similar position. Esophagogastric tube travels into the abdomen and terminates within the proximal stomach. Cardiomediastinal contours appear similar to prior. There is slightly improved aeration within the right lung with extensive interstitial fibrotic/scarring changes and postsurgical changes, which appear grossly similar to prior. The left lung is predominantly clear. There is no pneumothorax identified. Osseous structures appear stable from prior. Impression: Stable position of endotracheal tube. Esophagogastric tube within the proximal stomach. Otherwise, no significant change. PROCEDURE INTERPRETED AT [facility] DEPARTMENT OF RADIOLOGY Final Report Signed by: José Luis Clay
[2017-04-27] MEDS: SODIUM ACETATE 100 MEQ in DEXTROSE 5% NACL 0.22% 1,000 ML IV SCH ×2 (14:36→17:08)
[2017-04-27] MEDS: LEVOFLOXACIN 500 MG TABLET PO SCH (17:05)
[2017-04-27] MEDS: CETIRIZINE 10 MG TABLET PO SCH (21:20)
[2017-04-27] MEDS: HYDROcodone/CHLORPHENIRAMINE ER 5 ML UDCUP PO SCH (21:20)
[2017-04-28] MEDS: SODIUM ACETATE 100 MEQ in DEXTROSE 5% NACL 0.22% 1,000 ML IV SCH ×2 (01:06→14:28)
[2017-04-28] MEDS: ALBUTEROL/IPRATROPIUM 3 ML NEB RESP TX SCH ×4 (01:21→19:42)
[2017-04-28 04:22] LABS: ABG Base Excess 11.7 MMOL/L (-2.5-2.5); ABG HCO3 35.8 MMOL/L (20-26); ABG Oxygen Saturation 94.1 % (95-100); ABG PCO2 44.8 MM HG (35-48); ABG PO2 68.6 MM HG (80-95); ABG TCO2 37.1 MMOL/L (23-27); Allen Test Positive; Pt O2 Delivery Device Ventilator
[2017-04-28] MEDS: methylPREDNISolone SOD SUC 125 MG/2 ML VIAL IV SCH ×2 (05:47→16:26)
[2017-04-28] MEDS: PROPOFOL 1,000 MG/100 ML BOTTLE IV SCH ×3 (05:48→16:49)
[2017-04-28] MEDS: FAMOTIDINE 20 MG/2 ML VIAL IV SCH ×2 (06:04→20:35)
[2017-04-28 07:02] LABS: Hematocrit 31.1 VOL% (42.0-52.0); Hemoglobin 10.4 GM/DL (14.0-18.0); Immature Granulocytes % 0.6 %; Immature Granulocytes Absolute 0.05 #; Lymphocytes # 0.4 10*3/uL (1.4-4.0); Lymphocytes % 4.8 % (21.2-54.2); Mean Corpuscular HGB Conc 33.4 GM/DL (32-36); Mean Corpuscular Hemoglobin 29 PG (27-34); Mean Corpuscular Volume 85.4 FL (87-102); Mean Platelet Volume 10.3 FL (9.6-12.0); Monocytes # 0.4 10*3/uL (0.11-0.8); Monocytes % 4.6 % (1.7-12.7); Neutrophils # 7.3 10*3/uL (1.4-7.4); Platelet Count 110 T/CUMM (130-400); Red Blood Count 3.64 MC/CUMM (3.8-5.5); Red Cell Distribution Width 14.2 % (9.3-17.3); White Blood Count 8.1 T/CUMM (4-12)
[2017-04-28 07:32] LABS: Troponin I Only 0.018 NG/ML (0.00-0.045)
[2017-04-28 07:33] LABS: Band Neutrophils 1 % (0-10); Hypochromasia 1+; Lymphocytes 5 % (20-55); Ovalocytes Slight; Platelet Estimate Decreased; Segmented Neutrophils 87 % (50-85); Total Cells Counted 100
[2017-04-28 07:41] LABS: Calcium 8.1 MG/DL (8.5-10.1); Magnesium 2.3 MG/DL (1.8-2.4); Osmolality,Calculated 293.3 MOS/KG (273-304)
[2017-04-28] MEDS: DILTIAZEM INJ 100 MG in SODIUM CHLORIDE 0.9% 100 ML IV SCH (08:28)
--- NOTE | 2017-04-28 08:48 | Cardiology Progress Note ---
Assessment and Plan (1) Typical atrial flutter Status: Acute Assessment and plan: The patient has now converted to normal sinus rhythm. We will continue to follow with AV keagan blockade agents. For now continue with Lovenox he may need novel anticoagulant long-term. Current Visit: Yes (2) Shortness of breath Status: Acute Current Visit: Yes (3) Squamous cell carcinoma of left lung Status: Acute Current Visit: Yes Cardiology - PN: Subj Interval history: Mr. Dodge is more alert today. He is in sinus rhythm. He answers close ended questions appropriately he denies any chest pain. He remains in sinus rhythm. He has had no dysrhythmias. It appears that mechanical ventilation has helped his underlying atrial flutter. His transthoracic echo showed normal function of the left ventricle and right ventricle. This atrial flutter was presumptively a new diagnosis. He had an episode of respiratory arrest on the evening of 04/26/2017 and since that time had converted to sinus rhythm and has been doing better from a cardiovascular standpoint. Continue supportive care for now. He is on Lovenox for anticoagulation and if no further procedures are needed he would need full anticoagulation. He is at high risk of significant bleeding problems given his squamous cell carcinoma of the lung. Exam (Progress Note) - Constitutional Vitals: Period Temp Pulse Resp BP Sys/Srivastava Pulse Ox Last 24 Hr 96.7 F-97.6 F 57-75 10-20 98-173/47-117 86-100 General appearance: under weight - Eye Pupils: Present: NAY - Neck Neck exam: Present: normal inspection - Respiratory Respiratory exam: Present: rhonchi (Better air movement bilaterally) - Cardiovascular Cardiovascular exam: Present: regular rate and rhythm (No gallop) - GI/Abdominal GI/Abdominal exam: Present: normal bowel sounds - Extremities Exam Extremities exam: Present: normal inspection - Neurological Exam Neurological exam: Present: alert, other (Answers closed-end questions appropriately) - Skin Skin exam: Present: normal color, warm, dry Result/EKG - Labs CBC & BMP: 04/28/17 06:40 04/28/17 06:40 Labs: Laboratory Results - last 24 hr 04/27/17 04/27/17 04/27/17 07:36 09:15 11:20 WBC RBC Hgb Hct MCV MCH MCHC RDW Plt Count MPV Neut % (Auto) Lymph % (Auto) [place] % (Auto) Eos % (Auto) Baso % (Auto) Neut # (Auto) Lymph # (Auto) [place] # (Auto) Eos # (Auto) Baso # (Auto) Total Counted Immature Gran % Nucleated RBC % Immature Gran # Segmented Neutrophils Band Neutrophils Lymphocytes Monocytes Nucleated RBCs # Platelet Estimate Hypochromasia Ovalocytes Morphology Comment ABG pH 7.399 ABG pCO2 53.1 H ABG pO2 49.9 L ABG HCO3 32.1 H ABG Total CO2 33.7 H ABG O2 Saturation 82.7 L ABG Base Excess 6.1 H FiO2 Sodium Potassium Chloride Carbon Dioxide Anion Gap BUN Creatinine GFR Calculation BUN/Creatinine Ratio Glucose POC Glucose 187 H 184 H Calculated Osmolality Calcium Magnesium Total Creatine Kinase Troponin I 04/27/17 04/27/17 04/28/17 15:29 20:01 04:13 WBC RBC Hgb Hct MCV MCH MCHC RDW Plt Count MPV Neut % (Auto) Lymph % (Auto) [place] % (Auto) Eos % (Auto) Baso % (Auto) Neut # (Auto) Lymph # (Auto) [place] # (Auto) Eos # (Auto) Baso # (Auto) Total Counted Immature Gran % Nucleated RBC % Immature Gran # Segmented Neutrophils Band Neutrophils Lymphocytes Monocytes Nucleated RBCs # Platelet Estimate Hypochromasia Ovalocytes Morphology Comment ABG pH 7.520 H ABG pCO2 44.8 ABG pO2 68.6 L ABG HCO3 35.8 H ABG Total CO2 37.1 H ABG O2 Saturation 94.1 L ABG Base Excess 11.7 H FiO2 28.00 Sodium Potassium Chloride Carbon Dioxide Anion Gap BUN Creatinine GFR Calculation BUN/Creatinine Ratio Glucose POC Glucose 168 H 144 H Calculated Osmolality Calcium Magnesium Total Creatine Kinase Troponin I 04/28/17 04/28/17 04/28/17 06:40 06:40 06:40 WBC 8.1 RBC 3.64 L Hgb 10.4 L Hct 31.1 L MCV 85.4 L MCH 29 MCHC 33.4 RDW 14.2 Plt Count 110 L MPV 10.3 Neut % (Auto) 90.0 H Lymph % (Auto) 4.8 L [place] % (Auto) 4.6 Eos % (Auto) 0.0 Baso % (Auto) 0.0 Neut # (Auto) 7.3 Lymph # (Auto) 0.4 L [place] # (Auto) 0.4 Eos # (Auto) 0.0 Baso # (Auto) 0.0 Total Counted 100 Immature Gran % 0.6 Nucleated RBC % 0.0 Immature Gran # 0.05 Segmented Neutrophils 87 H Band Neutrophils 1 Lymphocytes 5 L Monocytes 7 Nucleated RBCs # 0.00 Platelet Estimate Decreased Hypochromasia 1+ Ovalocytes Slight Morphology Comment ABG pH ABG pCO2 ABG pO2 ABG HCO3 ABG Total CO2 ABG O2 Saturation ABG Base Excess FiO2 Sodium 141 Potassium 4.0 Chloride 99 Carbon Dioxide 33 H Anion Gap 13.0 BUN 32 H Creatinine 1.50 H GFR Calculation 60 BUN/Creatinine Ratio 21.00 H Glucose 211 H POC Glucose Calculated Osmolality 293.3 Calcium 8.1 L Magnesium 2.3 Total Creatine Kinase 451 H D Troponin I 0.018 04/28/17 07:19 WBC RBC Hgb Hct MCV MCH MCHC RDW Plt Count MPV Neut % (Auto) Lymph % (Auto) [place] % (Auto) Eos % (Auto) Baso % (Auto) Neut # (Auto) Lymph # (Auto) [place] # (Auto) Eos # (Auto) Baso # (Auto) Total Counted Immature Gran % Nucleated RBC % Immature Gran # Segmented Neutrophils Band Neutrophils Lymphocytes Monocytes Nucleated RBCs # Platelet Estimate Hypochromasia Ovalocytes Morphology Comment ABG pH ABG pCO2 ABG pO2 ABG HCO3 ABG Total CO2 ABG O2 Saturation ABG Base Excess FiO2 Sodium Potassium Chloride Carbon Dioxide Anion Gap BUN Creatinine GFR Calculation BUN/Creatinine Ratio Glucose POC Glucose 200 H Calculated Osmolality Calcium Magnesium Total Creatine Kinase Troponin I
--- NOTE | 2017-04-28 09:19 | XRay Report ---
Exam: XR chest 1V portable Indication: Intubated, respiratory failure Comparison study: 05/24/2017 radiograph Findings: Endotracheal esophagogastric tubes are in similar positions. The esophagogastric tube introduced below the field of view. Excellent sarcoidosis are stable from prior. Prominent postsurgical/posttraumatic changes and fibrosis/scarring within the right lung appears similar to prior. Left lung remains relatively clear with minimal perihilar interstitial opacities. There is no pneumothorax. Impression: No significant change. Stable position of endotracheal and esophagogastric tubes. PROCEDURE INTERPRETED AT [facility] DEPARTMENT OF RADIOLOGY Final Report Signed by: José Luis Clay
[2017-04-28] MEDS: INSULIN LISPRO 100 UNIT/ML SUBCUT SCH ×4 (09:55→20:49)
[2017-04-28] MEDS: ENOXAPARIN 80 MG/0.8 ML SYRINGE SUBCUT SCH ×2 (09:55→20:35)
[2017-04-28] MEDS: DILTIAZEM 30 MG TABLET PO SCH ×4 (09:56→20:34)
[2017-04-28] MEDS: METOPROLOL TARTRATE 50 MG TABLET PO SCH ×2 (09:56→20:34)
--- NOTE | 2017-04-28 11:14 | Hospitalist Progress Note ---
Assessment and Plan (1) Right lower lobe lung mass Status: Acute Assessment and plan: The patient had biopsy of endobronchial mass on which confirmed suspicion of squamous cell carcinoma. The patient has started tube feedings. He continues on the ventilator today. The patient has returned to sinus rhythm. We will recheck electrolytes tomorrow. Current Visit: Yes (2) Atrial fibrillation with RVR Status: Acute Current Visit: Yes (3) Abnormal CT scan, chest Status: Acute Current Visit: Yes Hospitalist: Subjective Interval history: Mr. Dodge continues with oral intubation and mechanical ventilation. I coordinate care with Dr. Boggs today. We will can arrest the gentleman on ventilator today and consider weaning trials next week. Obstruction of the left mainstem bronchus is a complication of the squamous cell carcinoma. Exam - Constitutional Vitals: Period Temp Pulse Resp BP Sys/Srivastava Pulse Ox Last 24 Hr 96.7 F-97.6 F 57-75 10-20 98-173/47-117 86-100 Exam: Constitutional System: No distress. No tremulousness. The patient is sedated and mechanically ventilated Head: Normocephalic, atraumatic. Ears, Nose and Throat System: No evidence of Otitis or Mastoiditis. No epistaxis or discharge Eyes System: Pupils equal, round, and reactive. Extraocular muscles intact. Neck: Supple, without adenopathy, No jugular venous distention. No thyromegaly , neck mass, or prior surgery apparent. Respiratory System: Chest rhonchi on the right and reduced lung sounds on the left to auscultation. Cardiovascular System: Heart with irregular rate. No murmur. GI System: Abdomen soft, nontender. Normo active bowel sounds present. Musculoskeletal System: limbs with no pedal edema. Full distal pulses. Results - Labs CBC & BMP: 04/28/17 06:40 04/28/17 06:40 Lab Results: I have reviewed the past 24 hour labs
--- NOTE | 2017-04-28 14:40 | Pulmonology Progress Note ---
Pulmonary - PN: Subj Interval history: This is a 77-year-old black male who had an altered level of consciousness earlier today. He was also having some mild shallow respirations with a good bit of large airway congestion. This patient has a partial obliteration of the right chest as part of her previous treatment for pulmonary tuberculosis. 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 04/24/2017 ABGs on unknown FiO2 showed a pH of 7.42, PCO2 of 77.1 and a PO2 of 107.4 with a bicarb of 32.4. When I was called about the patient's status we got blood gases on FiO2 28% and these showed a pH 7.18, PCO2 of 90.6, PO2 of 54.9 and a bicarb of 33.3. I took the patient off of oxygen and 1 hour later repeat his ABGs. He had a pH of 7.25, PCO2 of 74 and a PO2 of 37.8 with a bicarb of 31.6. At that time the patient's and his nurse said he was much more awake and alert and he was cooperative and he seemed to be back to what everyone thought was his normal state. I am going to repeat his ABGs on another 30 minutes before I decide whether or not to put him on a very low amount of oxygen such as 1/2 L/min. H&H is 9.8/31.8. White count is 12,200.. Electrolytes are normal. Creatinine is 1.5 with a BUN of 30. Microbiology shows that his proximal specimens are growing Pseudomonas. Patient is on Levaquin and Rocephin. Based on the best JOSE is I am going to switch his Rocephin to Fortaz 1 g IV piggyback every 8 hours. Physical exam. Psychiatric. Oriented 3. Cooperative. Coherent. Vital signs. See below Chest. Symmetrical. Clear breath sounds. I do not hear stridor. Heart. No gallop Abdomen nondistended. Positive bowel sounds Lower extremities. Nothing to suggest deep venous thrombophlebitis Neck. Symmetrical. No meningismus. Lymphatics. No submandibular cervical supraclavicular adenopathy. Neurologic. Cranial nerves are grossly intact. Patient moves all 4 extremities. The remainder the physical exam is non-contributory. Impression. . #1 altered mental status secondary to hypercarbia. 2. CO2 retainer. 3. Hypoxemia. 4. Endobronchial squamous cell carcinoma. 5. Partial right thoracoplasty 04/27/2017. Patient was stable when I saw him last night at 1 follow-up ABGs were drawn he developed acute ventricular tachycardia. He was coded. He required intubation mechanical ventilation. This morning his chest x-ray shows a clear left lung field. He has had a thoracoplasty on the right and there is some increased markings at the bases. Endotracheal tube appears to be in good position. ABGs on mechanical ventilation and FiO2 of 60% shows a pH 7.47 PCO2 of 39.8 PO2 of 150 and a bicarb of 29.2. I have decreased the patient's rate and I have decreased his FiO2. He is a CO2 retainer and I suspect he will require PO2 and at least in the mid 50s to become extubated. I am starting weaning protocol and I will reevaluate his blood gases in about 30-45 minutes. He will also require physical therapy protocol. Labs been reviewed. Medicines have been reviewed. Patient's on antibiotics for pulmonary Pseudomonas infection and is on Solu-Medrol 60 IV push every 12 hours. He is on proton pump inhibitors and expectorants. He is also on Cardizem and Lovenox. 04/28/2017. Patient's on mechanical ventilation. He has better aeration of small right lung which is influenced by partial thoracoplasty and dense pleural scarring. The right hilar areas very prominent there are increased interstitial markings in the left lower lung. No heart failure no definite infiltrates. Endotracheal tube is in good position. ABGs on mechanical ventilation FiO2 28% show a pH of 7.52, PCO2 44.8, PO2 68.6 and a bicarb of 35.8. Weaning protocol has been begun with CPAP trials. Electrolytes are normal. Creatinine is 1.5. BUN is 32. CBC is stable. Bronchoscopy washings are growing Pseudomonas and Stenotrophomonas maltophilia. The patient is being treated with Levaquin and Fortaz. Physical exam. Vital signs. See below Face. Symmetrical. Lips and tongue are normal. Neck. No meningismus. Lymphatics. No submandibular cervical supraclavicular adenopathy. Chest is fairly clear. Heart no gallop Abdomen. Nondistended. Rare bowel sounds. lower extremities. Possible mild venous stasis The remainder the physical exam is noncontributory. Plan. 04/27/2017 1. Mechanical ventilation weaning procedures 2. Physical therapy protocol 3. Doppler venograms 4 see my note above 04/28/2017. 1. See my note 04/28/2017 above. 2. Levaquin and Fortaz. 3. Weaning protocol 4. Physical therapy protocol. 5. This patient's previously said he wants no treatment for his obstructive endobronchial lesion in the left lung. This is going to be a major hindrance to extubation. There are number of possibilities in including trach, laser surgery, radiation therapy and chemotherapy which Dr. Naqvi will discuss with the family. Exam (Progress Note) - Constitutional Vitals: Period Temp Pulse Resp BP Sys/Srivastava Pulse Ox Last 24 Hr 96.7 F-97.6 F 56-75 10-20 113-182/57-117 86-100 Results - Labs CBC & BMP: 04/28/17 06:40 04/28/17 06:40
[2017-04-28] MEDS: LEVOFLOXACIN 500 MG TABLET PO SCH (16:25)
[2017-04-28] MEDS: CETIRIZINE 10 MG TABLET PO SCH (20:34)
[2017-04-28] MEDS: HYDROcodone/CHLORPHENIRAMINE ER 5 ML UDCUP PO SCH (20:36)
[2017-04-29] MEDS: ALBUTEROL/IPRATROPIUM 3 ML NEB RESP TX SCH ×4 (00:52→19:38)
[2017-04-29] MEDS: SODIUM ACETATE 100 MEQ in DEXTROSE 5% NACL 0.22% 1,000 ML IV SCH (01:30)
[2017-04-29] MEDS: PROPOFOL 1,000 MG/100 ML BOTTLE IV SCH ×3 (03:00→19:08)
[2017-04-29 03:29] LABS: ABG Base Excess 12.4 MMOL/L (-2.5-2.5); ABG Oxygen Saturation 92.2 % (95-100); ABG PCO2 50.8 MM HG (35-48); ABG PH 7.479 (7.35-7.45); ABG PO2 63.2 MM HG (80-95); ABG TCO2 34.2 MMOL/L (23-27); Allen Test Positive; Pt O2 Delivery Device Ventilator
[2017-04-29 04:33] LABS: Hematocrit 30.1 VOL% (42.0-52.0); Hemoglobin 10.2 GM/DL (14.0-18.0); Immature Granulocytes % 0.4 %; Immature Granulocytes Absolute 0.04 #; Lymphocytes # 0.5 10*3/uL (1.4-4.0); Lymphocytes % 4.7 % (21.2-54.2); Mean Corpuscular HGB Conc 33.9 GM/DL (32-36); Mean Corpuscular Hemoglobin 29 PG (27-34); Mean Corpuscular Volume 85.3 FL (87-102); Mean Platelet Volume 10.4 FL (9.6-12.0); Monocytes # 0.5 10*3/uL (0.11-0.8); Neutrophils # 8.9 10*3/uL (1.4-7.4); Neutrophils % 89.9 % (38.7-73.9); Platelet Count 120 T/CUMM (130-400); Red Blood Count 3.53 MC/CUMM (3.8-5.5); Red Cell Distribution Width 14.1 % (9.3-17.3); White Blood Count 9.9 T/CUMM (4-12)
[2017-04-29 04:58] LABS: Lymphocytes 9 % (20-55); Nucleated Red Blood Cells 1 (0-5); Segmented Neutrophils 87 % (50-85); Total Cells Counted 100
[2017-04-29 04:59] LABS: Hypochromasia 1+; Platelet Estimate Adequate
[2017-04-29] MEDS: methylPREDNISolone SOD SUC 125 MG/2 ML VIAL IV SCH ×2 (05:05→17:03)
[2017-04-29 05:14] LABS: Calcium 7.8 MG/DL (8.5-10.1); Magnesium 2.2 MG/DL (1.8-2.4); Osmolality,Calculated 287.4 MOS/KG (273-304)
[2017-04-29] MEDS: FAMOTIDINE 20 MG/2 ML VIAL IV SCH ×2 (06:38→19:07)
--- NOTE | 2017-04-29 07:21 | EKG Report ---
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
[2017-04-29] MEDS: INSULIN LISPRO 100 UNIT/ML SUBCUT SCH ×4 (07:57→20:38)
--- NOTE | 2017-04-29 08:12 | XRay Report ---
History: Pneumonia Date: 04/29/2017 Study: Chest x-ray AP portable Comparison exam: 04/28/2017 The endotracheal and nasogastric tubes remain in satisfactory position. The cardiomediastinal silhouette is unchanged. Posttraumatic/postsurgical changes of the right rib cage are noted. There is chronic parenchymal pleural disease in the right lung as before. There is mildly increased hazy atelectasis/infiltrate in the left lower lung on the current study. Impression: Mildly increased atelectasis/infiltrate in the left lower lung on the current exam. Otherwise unchanged PROCEDURE INTERPRETED AT [facility] DEPARTMENT OF RADIOLOGY Final Report Signed by: Dr. Conchita Argueta
--- NOTE | 2017-04-29 08:55 | Pulmonology Progress Note ---
Pulmonary - PN: Subj Interval history: This 77-year-old man came in with increased shortness of breath. He had a CT at [place] about 2 weeks ago showing some mediastinal mass with partial extrinsic compression of left main bronchus. He is in now with cough congestion and increased shortness of breath. He underwent fiberoptic bronchoscopy this morning. He has tumor compressing the left main bronchus but there did appear to be an element of it involving the mucosa. Biopsies were taken and should give us an answer. His left main bronchus is not obstructed enough to require a stent. Likely would need combination of radiation and chemotherapy depending on cell type. We are waiting on retrieval of old records from 30 years ago when he had surgery on his right long and a thoracoplasty. He had TB at that time. 04/25/2017 patient had episodes of tachyarrhythmia during the night. He had a carotid massage and some IV medications per hospitalist service. This morning it appears that he has atrial flutter with 2-1 block and heart rate around 150. He does not seem real symptomatic. He is alert. Yesterday his ABG showed CO2 retention when he was on 4 L of oxygen. We have reduced the oxygen. Have not repeated the ABGs. Pathology from biopsy done yesterday should be out tomorrow. 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 He had a decortication done by Dr. Matos. He had full treatment for TB and was cured. This accounts for his abnormal x-ray on the right side. He did have a thoracoplasty at that time as well. At this point we need cardiology to help with his tachyarrhythmia, and we await his pathology report. Shortly will not be a surgical candidate by the location of the tumor and physiologically. 04/26/17 pathology has come back showing squamous cell lung cancer. This partially obstructs his left main bronchus and involves the mediastinum. Not a candidate for surgery. Probably radiation and/or chemotherapy. Need oncology to see. Findings were discussed with the patient and his family. I Would be in favor of treatment as soon as can be done. 04/29/2017 patient became more sluggish in the day on Saturday and had an elevated PCO2 requiring intubation this time. He has been on the ventilator now weekend. His chest x-ray looks fairly good. 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 Did not tolerate CPAP yesterday. He is on a sodium acetate infusion, and he has a metabolic alkalosis. We will stop that and start him on Diamox. Need to wean him with his PO2 around 60 so we will have problems with retaining if possible. We will also place on Aminophyllin. Exam (Progress Note) - Constitutional Vitals: Period Temp Pulse Resp BP Sys/Srivastava Pulse Ox Last 24 Hr 97 F-98 F 53-93 10-20 116-182/44-91 90-100 Exam: Patient is sedated and on the ventilator at present. Pupils react to light. Has orotracheal tube in place.. Neck supple no bruits. Chest reveals some rhonchi bilaterally. Heart irregular without murmurs. Abdomen soft nontender no masses. Extremities no clubbing cyanosis edema. Results - Labs CBC & BMP: 04/29/17 04:10 04/29/17 04:10 Lab Results: I have reviewed the past 24 hour labs - Diagnostic Findings Procedure: Chest x-ray: image reviewed by me (Both lungs are aerated. Previous thoracoplasty on right noted. Some interstitial edema. ET tube good position.) Assessment and Plan (1) Acute bronchitis Status: Acute Assessment and plan: He does have a cough and sputum production and rhonchi. We will treat him with antibiotics and steroids. Need to get cultures. Probably has some bronchopneumonia as well. 04/24/2017 being treated with antibiotics and steroids for acute bronchitis. 04/25/2017 continuing antibiotics and steroids. 04/26/17 this is better with steroids and antibiotics. These can be stopped in a couple of days. 04/29/2017 continuing antibiotics and steroids empirically. Current Visit: Yes (2) Abnormal CT scan, chest Status: Acute Assessment and plan: I have not been able to pull up the CT to review but reading the reports it indicates that he has some mediastinal adenopathy. I will plan bronchoscopy in the morning. Hopefully I will be able to review the films prior to that. he does have a remote history of some form of some form of tuberculosis. 04/24/2017 was able to review the CT and he has fairly large mass in the mediastinum/left hilum with compression of left main bronchus. He has had bronchoscopy this morning with biopsies. Await pathology from that. 04/25/2017 mass with partial obstruction of left main bronchus. Current Visit: Yes (3) Atrial fibrillation with RVR Status: Acute Assessment and plan: Rate is controlled. 04/24/2017. On the monitor during his bronchoscopy it is apparent that he has multifocal atrial tachycardia rather than atrial fibrillation at the present time. 04/25/2017 atrial flutter with RVR this morning. Cardiology to see 04/26/17 heart rate is now in the 100-110 range. Still has atrial flutter. Cardiology following. I am concerned about possible metastatic disease given that he has cancer in the left mediastinal/hilar area. Current Visit: Yes (4) Hilar lymphadenopathy Status: Acute Assessment and plan: Could be results of previous TB or he could have a malignancy. Plan to do bronchoscopy in the morning and see if anything is visible there. Also will get cultures for Mycobacterium and bacterial causes of this 04/24/2017 this is likely to be a primary malignancy. Biopsies are pending. See bronchoscopy report 04/25/2017 likely to be bronchogenic carcinoma. Pathology reported pending Current Visit: Yes (5) Squamous cell carcinoma of left lung Status: Acute Assessment and plan: Pathology has come back showing squamous cell cancer. It involves the left main bronchus. Involves the mediastinum and left hilum. Not candidate for surgery. Oncology to see. I would favor early radiation since he has partial obstruction of the left main bronchus. It is not severe enough obstruction to consider stenting. 04/29/2017 will need oncology to see. This was partially obstructing left mainstem bronchus but I do not think it caused his respiratory failure acutely. Current Visit: Yes (6) COPD (chronic obstructive pulmonary disease) Status: Acute Assessment and plan: Continuing bronchodilators and steroids as well as empiric antibiotics. He is a CO2 retainer. Current Visit: Yes (7) Respiratory failure Status: Acute Assessment and plan: ABG showed marked CO2 retention. Will use Diamox. Will start Aminophyllin. Will need to keep his PO2 around 60 in order to wean adequately. Current Visit: Yes
[2017-04-29] MEDS: DILTIAZEM 30 MG TABLET PO SCH (09:02)
[2017-04-29] MEDS: METOPROLOL TARTRATE 50 MG TABLET PO SCH ×2 (09:02→20:47)
[2017-04-29] MEDS: ENOXAPARIN 40 MG/0.4 ML SYRINGE SUBCUT SCH (09:07)
[2017-04-29] MEDS: DILTIAZEM INJ 100 MG in SODIUM CHLORIDE 0.9% 100 ML IV SCH (09:08)
--- NOTE | 2017-04-29 09:33 | Cardiology Progress Note ---
Assessment and Plan - Time spent with patient Time spent with patient: Greater than 30 minutes (1) Atrial fibrillation with RVR Status: Resolved Assessment and plan: SEE PLAN OF CARE LISTED BELOW Current Visit: Yes (2) Acute bronchitis Status: Acute Assessment and plan: SEE PLAN OF CARE LISTED BELOW Current Visit: Yes (3) Former tobacco use Status: Resolved Assessment and plan: SEE PLAN OF CARE LISTED BELOW Current Visit: Yes (4) Hypertension Status: Chronic Assessment and plan: SEE PLAN OF CARE LISTED BELOW Current Visit: Yes (5) Squamous cell carcinoma of left lung Status: Acute Assessment and plan: SEE PLAN OF CARE LISTED BELOW Current Visit: Yes (6) Respiratory failure Status: Acute Assessment and plan: SEE PLAN OF CARE LISTED BELOW Current Visit: Yes Cardiology - PN: Subj Interval history: SHARONDA TO COMPLETE DIGITAL SERVICE ENGINEER: DR. LOREDO SUMMARY: Mr. Dodge, 77BM, with no prior history of cardiac disease, presented to the emergency department at [facility] April 23, 2017 with complaints of worsening shortness of breath. He was initially seen at [facility] but transferred to our facility for pulmonary consultation. CT Chest at [place] revealed abnormal results concerning for neoplastic adenopathy. Dr. Naqvi and Dr. Elliott are now following. Pathology has returned revealing squamous cell lung cancer. This partially obstructs his left main bronchus and involves the mediastinum. He is not a candidate for surgery. He was also found to be in atrial fibrillation with rapid ventricular response. Cardizem was initiated in the emergency department. April 26, 2017, patient experienced respiratory arrest. Since that time, he converted to normal sinus rhythm. Echocardiogram April 25, 2017 reveals the following: EF 60% , no significant valvular abnormality. RVSP 52 mmHg. APRIL 29, 2017: Remains intubated at this time. Hopefully, patient will be extubated soon. For the past 24 hours, blood pressure has been elevated, systolic blood pressure averaging 140s-170s. He is having frequent PVCs, unifocal. Also, one episode of a second-degree AV block type I. He is currently maintained on Diltiazem 30 mg per NGT QID, Metoprolol tartrate 50 mg per NGT BID. I will increase his diltiazem to 60 mg QID with hold parameters. He is also receiving low-dose Lovenox and, if no invasive procedures to be performed, will need full anticoagulation. He is at high risk of significant bleeding given his squamous cell carcinoma of the lung. I will further discuss with Dr. Crawley and await additional recommendations. ASSESSMENT/PLAN: 1. ATRIAL FIBRILLATION W/ RVR - Now NSR. Will need full anticoagulation when okay with Pulmonology and Oncology. 2. ACUTE BRONCHITIS - He is being treated with antibiotics and steroids. 3. SQUAMOUS CELL CARCINOMA OF LUNG - Dr. Naqvi and Dr. Elliott addressing. 4. RESPIRATORY ARREST - Currently intubated. Continue current plan of care. 5. FORMER TOBACCO ABUSE - History of 20 years smoking, reportedly quit approximately 12 years ago. 6. HYPERTENSION - Suboptimally controlled. Increasing CCB today, following labs closely. Exam (Progress Note) - Constitutional Vitals: Period Temp Pulse Resp BP Sys/Srivastava Pulse Ox Last 24 Hr 97 F-98 F 53-93 10-20 116-182/44-91 90-100 Exam: General: [Appears well with no apparent distress.] [Cooperative. ] [Appears comfortable.] HEENT: [PERRL, normocephalic, atraumatic. Mucous membranes moist. No jaundice noted. Conjunctiva moist and clear, sclerae anicteric] Neck: No obvious JVD/HJR, no thyromegaly. No carotid bruit appreciated Cardiac: [Regular rate and rhythm.] [No obvious murmur rub or gallop.] Lungs: [Rhonchi noted throughout both lung alan. Intubated with symmetrical chest wall movements. Abdomen: Soft, bowel sounds normoactive. Nontender and nondistended. No abdominal bruit or thrill noted. No masses noted. Musculoskeletal: No fluid collection. Decreased range of motion is noted. Extremities: No clubbing, cyanosis noted. [ No edema noted.] Upper extremity pulses 2+. Lower extremity pulses 2+. Capillary refill less than 3 seconds. Skin: No unusual lesions or rashes. No skin breakdown appreciated. Neuro: Moves all extremities well without hemiparesis or paralysis. No essential tremor is appreciated. Result/EKG - Labs CBC & BMP: 04/29/17 04:10 04/29/17 04:10 Lab Results: I have reviewed the past 24 hour labs Labs: Laboratory Results - last 24 hr 04/28/17 04/28/17 04/28/17 11:31 15:58 20:40 WBC RBC Hgb Hct MCV MCH MCHC RDW Plt Count MPV Neut % (Auto) Lymph % (Auto) [place] % (Auto) Eos % (Auto) Baso % (Auto) Neut # (Auto) Lymph # (Auto) [place] # (Auto) Eos # (Auto) Baso # (Auto) Total Counted Immature Gran % Nucleated RBC % Immature Gran # Segmented Neutrophils Lymphocytes Monocytes Nucleated RBCs Nucleated RBCs # Platelet Estimate Hypochromasia ABG pH ABG pCO2 ABG pO2 ABG HCO3 ABG Total CO2 ABG O2 Saturation ABG Base Excess FiO2 Sodium Potassium Chloride Carbon Dioxide Anion Gap BUN Creatinine GFR Calculation BUN/Creatinine Ratio Glucose POC Glucose 186 H 171 H 228 H Calculated Osmolality Calcium Magnesium 04/29/17 04/29/17 04/29/17 03:20 04:10 04:10 WBC 9.9 RBC 3.53 L Hgb 10.2 L Hct 30.1 L MCV 85.3 L MCH 29 MCHC 33.9 RDW 14.1 Plt Count 120 L MPV 10.4 Neut % (Auto) 89.9 H Lymph % (Auto) 4.7 L [place] % (Auto) 5.0 Eos % (Auto) 0.0 Baso % (Auto) 0.0 Neut # (Auto) 8.9 H Lymph # (Auto) 0.5 L [place] # (Auto) 0.5 Eos # (Auto) 0.0 Baso # (Auto) 0.0 Total Counted 100 Immature Gran % 0.4 Nucleated RBC % 0.0 Immature Gran # 0.04 Segmented Neutrophils 87 H Lymphocytes 9 L Monocytes 4 Nucleated RBCs 1 Nucleated RBCs # 0.00 Platelet Estimate Adequate Hypochromasia 1+ ABG pH 7.479 H ABG pCO2 50.8 H ABG pO2 63.2 L ABG HCO3 36.0 H ABG Total CO2 34.2 H ABG O2 Saturation 92.2 L ABG Base Excess 12.4 H FiO2 28.00 Sodium 140 Potassium 4.0 Chloride 97 L Carbon Dioxide 36 H Anion Gap 11.0 BUN 27 H Creatinine 1.30 GFR Calculation 71 BUN/Creatinine Ratio 20.00 Glucose 179 H POC Glucose Calculated Osmolality 287.4 Calcium 7.8 L Magnesium 2.2 04/29/17 07:36 WBC RBC Hgb Hct MCV MCH MCHC RDW Plt Count MPV Neut % (Auto) Lymph % (Auto) [place] % (Auto) Eos % (Auto) Baso % (Auto) Neut # (Auto) Lymph # (Auto) [place] # (Auto) Eos # (Auto) Baso # (Auto) Total Counted Immature Gran % Nucleated RBC % Immature Gran # Segmented Neutrophils Lymphocytes Monocytes Nucleated RBCs Nucleated RBCs # Platelet Estimate Hypochromasia ABG pH ABG pCO2 ABG pO2 ABG HCO3 ABG Total CO2 ABG O2 Saturation ABG Base Excess FiO2 Sodium Potassium Chloride Carbon Dioxide Anion Gap BUN Creatinine GFR Calculation BUN/Creatinine Ratio Glucose POC Glucose 157 H Calculated Osmolality Calcium Magnesium - Diagnostic Findings Procedure: Chest x-ray: report reviewed by me - EKG EKG results: interpreted by me EKG shows: sinus rhythm
[2017-04-29] MEDS ORDERED: AMINOPHYLLINE 250 MG in SODIUM CHLORIDE 0.9% 100 ML IV ONE (10:00)
[2017-04-29] MEDS: AMINOPHYLLINE 500 MG in SODIUM CHLORIDE 0.9% 480 ML IV SCH (10:50)
[2017-04-29] MEDS: DILTIAZEM 60 MG TABLET PO SCH ×3 (12:40→20:38)
--- NOTE | 2017-04-29 13:27 | Hospitalist Progress Note ---
Assessment and Plan (1) Right lower lobe lung mass Status: Acute Assessment and plan: The patient had biopsy of endobronchial mass on which confirmed suspicion of squamous cell carcinoma. The patient has started tube feedings. He continues on the ventilator today. The patient has returned to sinus rhythm. We will recheck electrolytes tomorrow. Current Visit: Yes (2) Atrial fibrillation with RVR Status: Resolved Current Visit: Yes (3) Abnormal CT scan, chest Status: Acute Current Visit: Yes Hospitalist: Subjective Interval history: Wilberto Dar -this is a 77-year-old man with history of pulmonary resection on the right due to old tuberculosis. He has now been diagnosed with squamous scale carcinoma of the left mainstem bronchus which is nearly obstructing. The patient required intubation due to shortness of breath and hypercarbia. We are hoping to improve the patient's lung function enough to be extubated. Exam - Constitutional Vitals: Period Temp Pulse Resp BP Sys/Srivastava Pulse Ox Last 24 Hr 97.6 F-98 F 45-93 10-21 113-177/44-91 90-100 Exam: Constitutional System: No distress. No tremulousness. The patient is sedated and mechanically ventilated Head: Normocephalic, atraumatic. Ears, Nose and Throat System: No evidence of Otitis or Mastoiditis. No epistaxis or discharge Eyes System: Pupils equal, round, and reactive. Extraocular muscles intact. Neck: Supple, without adenopathy, No jugular venous distention. No thyromegaly , neck mass, or prior surgery apparent. Respiratory System: Chest rhonchi on the right and reduced lung sounds on the left to auscultation. Cardiovascular System: Heart with irregular rate. No murmur. GI System: Abdomen soft, nontender. Normo active bowel sounds present. Musculoskeletal System: limbs with no pedal edema. Full distal pulses. Results - Labs CBC & BMP: 04/29/17 04:10 04/29/17 04:10 Lab Results: I have reviewed the past 24 hour labs
--- NOTE | 2017-04-29 15:19 | Physician Query Form ---
CLICK EDIT DOCUMENT TO SELECT QUERY ANSWER --> OK --> SIGN Kelly Vance RN, CCDS Certified Clinical Cargo Operations Agent W) [phone] (f) [phone] [email or web address] PROVIDERS: Make your selection(s) from the choices in EACH section by typing an "x" and enter comments in the comment section. Please use your independent medical judgment in providing your response. This request does not imply that any particular answer is desired or expected. CLINICAL INDICATORS: (Providers should not edit this section) "altered mental status secondary to hypercarbia" ACUITY: ( ) Acute (X ) Acute on Chronic ( ) Chronic ( ) Clinically unable to determine NATURE: ( X) Delirium due to general medical condition ( ) Dementia ( ) Encephalopathy ( ) Encephalopathy (Anoxic) ( ) Unconscious ( ) Transient level of awareness ( ) Comatose ( ) Locked-in State ( ) Persistent Vegetative State ( ) Other, please specify: ( ) Clinically unable to determine Please indicate the underlying cause of the altered mental status (CHECK ALL THAT APPLY): ( ) Baseline dementia ( ) Alzheimer's disease ( ) Parkinson's disease ( ) Lewy body dementia ( ) Acute stroke ( ) Late effect of stroke ( ) Reactive (from emotional stress, psychological trauma) ( ) Due to narcotics/other drugs ( ) Post procedural delirium ( ) Transient ischemic attack ( ) Generalized cerebral edema ( ) Normal pressure hydrocephalus ( ) Psychiatric illness ( ) Other, please specify: ( ) Clinically unable to determine Please indicate if there is an infection, sepsis, dehydration or specific organ failure that is causing the dementia. Be specific with clarifying the relationship between that process and the mental status change. COMMENTS: PLEASE ALSO DOCUMENT RESPONSE IN PROGRESS NOTES AND/OR DISCHARGE SUMMARY Use of terms such as suspected, likely, or probable (associated with a specific diagnosis that is being evaluated, monitored, or treated as if it exists) are acceptable and can be restated in the discharge summary if not ruled out. MTDD
[2017-04-29] MEDS: LEVOFLOXACIN 500 MG TABLET PO SCH (17:05)
[2017-04-29] MEDS: CETIRIZINE 10 MG TABLET PO SCH (20:38)
[2017-04-29] MEDS: HYDROcodone/CHLORPHENIRAMINE ER 5 ML UDCUP PO SCH (20:39)
[2017-04-29] MEDS: cefTRIAXone 1,000 MG in SODIUM CHLORIDE 0.9% 100 ML IV SCH (23:04)
[2017-04-29] MEDS: PANTOPRAZOLE 40 MG TABLET PO SCH (23:05)
[2017-04-29] MEDS: DILTIAZEM CD 240 MG CAPSULE PO SCH (23:05)
[2017-04-30] MEDS: ALBUTEROL/IPRATROPIUM 3 ML NEB RESP TX SCH ×4 (00:40→19:51)
[2017-04-30] MEDS: methylPREDNISolone SOD SUC 125 MG/2 ML VIAL IV SCH ×2 (03:53→16:34)
[2017-04-30] MEDS: PROPOFOL 1,000 MG/100 ML BOTTLE IV SCH ×3 (03:53→19:21)
[2017-04-30 05:10] LABS: Hematocrit 35.3 VOL% (42.0-52.0); Hemoglobin 11.2 GM/DL (14.0-18.0); Immature Granulocytes % 0.4 %; Immature Granulocytes Absolute 0.05 #; Lymphocytes # 0.6 10*3/uL (1.4-4.0); Lymphocytes % 4.2 % (21.2-54.2); Mean Corpuscular HGB Conc 31.7 GM/DL (32-36); Mean Corpuscular Hemoglobin 28 PG (27-34); Mean Corpuscular Volume 88.9 FL (87-102); Mean Platelet Volume 10.4 FL (9.6-12.0); Monocytes # 0.6 10*3/uL (0.11-0.8); Monocytes % 4.9 % (1.7-12.7); Neutrophils # 11.8 10*3/uL (1.4-7.4); Neutrophils % 90.5 % (38.7-73.9); Platelet Count 109 T/CUMM (130-400); Red Blood Count 3.97 MC/CUMM (3.8-5.5); Red Cell Distribution Width 14.2 % (9.3-17.3)
[2017-04-30 05:44] LABS: Hypochromasia 1+; Lymphocytes 5 % (20-55); Platelet Estimate Decreased; Segmented Neutrophils 93 % (50-85); Total Cells Counted 100
[2017-04-30] MEDS: FAMOTIDINE 20 MG/2 ML VIAL IV SCH ×2 (06:05→18:41)
[2017-04-30 06:13] LABS: Calcium 7.9 MG/DL (8.5-10.1); Magnesium 2.4 MG/DL (1.8-2.4); Osmolality,Calculated 291.1 MOS/KG (273-304); Potassium 4.5 MMOL/L (3.5-5.1)
--- NOTE | 2017-04-30 07:33 | XRay Report ---
Referring Physician: Serafin Verduzco Exam: XR chest 1V portable Date: April 30, 2017 at 3:40 AM Reason: Pneumonia Comparison: Chest one view portable April 29, 2017 Findings: An endotracheal tube and feeding tube are again in place. The cardiac silhouette is upper normal in size. There is volume loss again at the right lung, which could be related to previous surgery or trauma. Calcified pleural plaques are also noted on the right. There are opacities within the lower lung zones bilaterally and persistent density at the right lung apex. This could represent pulmonary edema or pneumonia superimposed upon atelectasis and scarring. Confirmation or exclusion of a neoplastic process in this setting is difficult. No pneumothorax is identified, but there may be mild bilateral pleural fluid. The osseous structures appear stable. Impression: There has been no significant change. PROCEDURE INTERPRETED AT [facility] DEPARTMENT OF RADIOLOGY Final Report Signed by: Dr. De Perez
--- NOTE | 2017-04-30 07:56 | Oncology Progress Note ---
Assessment and Plan (1) Respiratory failure Status: Acute Current Visit: Yes (2) Hilar lymphadenopathy Status: Acute Current Visit: Yes Oncology Subjective PN Interval history: Mr. Dodge remains on mechanical ventilator. I attempted to call his yesterday but was unable to reach her. I will readdress his case once he is off the ventilator when he and I are able to sit down to discuss his lung cancer. If he is unable to come off the ventilator, we will of course have to decide about how aggressive to be given his advanced age and his underlying poor prognosis from lung cancer. Exam - Constitutional Vitals: Period Temp Pulse Resp BP Sys/Srivastava Pulse Ox Last 24 Hr 97 F-98 F 45-89 10-23 93-172/35-78 92-100 Results - Labs CBC & BMP: 04/30/17 04:48 04/30/17 04:48
--- NOTE | 2017-04-30 08:00 | Pulmonology Progress Note ---
Pulmonary - PN: Subj Interval history: This 77-year-old man came in with increased shortness of breath. He had a CT at [facility] about 2 weeks ago showing some mediastinal mass with partial extrinsic compression of left main bronchus. He is in now with cough congestion and increased shortness of breath. He underwent fiberoptic bronchoscopy this morning. He has tumor compressing the left main bronchus but there did appear to be an element of it involving the mucosa. Biopsies were taken and should give us an answer. His left main bronchus is not obstructed enough to require a stent. Likely would need combination of radiation and chemotherapy depending on cell type. We are waiting on retrieval of old records from 30 years ago when he had surgery on his right long and a thoracoplasty. He had TB at that time. 04/25/2017 patient had episodes of tachyarrhythmia during the night. He had a carotid massage and some IV medications per hospitalist service. This morning it appears that he has atrial flutter with 2-1 block and heart rate around 150. He does not seem real symptomatic. He is alert. Yesterday his ABG showed CO2 retention when he was on 4 L of oxygen. We have reduced the oxygen. Have not repeated the ABGs. Pathology from biopsy done yesterday should be out tomorrow. 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 He had a decortication done by Dr. Matos. He had full treatment for TB and was cured. This accounts for his abnormal x-ray on the right side. He did have a thoracoplasty at that time as well. At this point we need cardiology to help with his tachyarrhythmia, and we await his pathology report. Shortly will not be a surgical candidate by the location of the tumor and physiologically. 04/26/17 pathology has come back showing squamous cell lung cancer. This partially obstructs his left main bronchus and involves the mediastinum. Not a candidate for surgery. Probably radiation and/or chemotherapy. Need oncology to see. Findings were discussed with the patient and his family. I Would be in favor of treatment as soon as can be done. 04/29/2017 patient became more sluggish in the day on Saturday and had an elevated PCO2 requiring intubation this time. He has been on the ventilator now weekend. His chest x-ray looks fairly good. 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 Did not tolerate CPAP yesterday. He is on a sodium acetate infusion, and he has a metabolic alkalosis. We will stop that and start him on Diamox. Need to wean him with his PO2 around 60 so we will have problems with retaining if possible. We will also place on Aminophyllin. 04/30/2017 patient tolerated some CPAP yesterday. No ABGs this morning. Chest x- ray shows a little infiltrate at the left base. Probably needs diuresing a little further. Hopefully Diamox will help with that. Exam (Progress Note) - Constitutional Vitals: Period Temp Pulse Resp BP Sys/Srivastava Pulse Ox Last 24 Hr 97 F-98 F 45-89 10-23 93-172/35-78 92-100 Exam: Patient is sedated and on the ventilator at present. Pupils react to light. Has orotracheal tube in place.. Neck supple no bruits. Chest reveals some rhonchi bilaterally. Heart irregular without murmurs. Abdomen soft nontender no masses. Extremities no clubbing cyanosis edema. Little change from yesterday. Results - Labs CBC & BMP: 04/30/17 04:48 04/30/17 04:48 Lab Results: I have reviewed the past 24 hour labs - Diagnostic Findings Procedure: Chest x-ray: image reviewed by me (ET tube good position. Left basilar infiltrate. Previous right thoracoplasty with calcified pleural plaque from remote history of TB.) Assessment and Plan (1) Acute bronchitis Status: Acute Assessment and plan: He does have a cough and sputum production and rhonchi. We will treat him with antibiotics and steroids. Need to get cultures. Probably has some bronchopneumonia as well. 04/24/2017 being treated with antibiotics and steroids for acute bronchitis. 04/25/2017 continuing antibiotics and steroids. 04/26/17 this is better with steroids and antibiotics. These can be stopped in a couple of days. 04/29/2017 continuing antibiotics and steroids empirically. 04/30/2017 continuing antibiotics bronchodilator steroids. Current Visit: Yes (2) Abnormal CT scan, chest Status: Acute Assessment and plan: I have not been able to pull up the CT to review but reading the reports it indicates that he has some mediastinal adenopathy. I will plan bronchoscopy in the morning. Hopefully I will be able to review the films prior to that. he does have a remote history of some form of some form of tuberculosis. 04/24/2017 was able to review the CT and he has fairly large mass in the mediastinum/left hilum with compression of left main bronchus. He has had bronchoscopy this morning with biopsies. Await pathology from that. 04/25/2017 mass with partial obstruction of left main bronchus. Current Visit: Yes (3) Atrial fibrillation with RVR Status: Resolved Assessment and plan: Rate is controlled. 04/24/2017. On the monitor during his bronchoscopy it is apparent that he has multifocal atrial tachycardia rather than atrial fibrillation at the present time. 04/25/2017 atrial flutter with RVR this morning. Cardiology to see 04/26/17 heart rate is now in the 100-110 range. Still has atrial flutter. Cardiology following. I am concerned about possible metastatic disease given that he has cancer in the left mediastinal/hilar area. 04/30/2017 sinus rhythm with PACs. Current Visit: Yes (4) Hilar lymphadenopathy Status: Acute Assessment and plan: Could be results of previous TB or he could have a malignancy. Plan to do bronchoscopy in the morning and see if anything is visible there. Also will get cultures for Mycobacterium and bacterial causes of this 04/24/2017 this is likely to be a primary malignancy. Biopsies are pending. See bronchoscopy report 04/25/2017 likely to be bronchogenic carcinoma. Pathology reported pending Current Visit: Yes (5) Squamous cell carcinoma of left lung Status: Deleted Assessment and plan: Pathology has come back showing squamous cell cancer. It involves the left main bronchus. Involves the mediastinum and left hilum. Not candidate for surgery. Oncology to see. I would favor early radiation since he has partial obstruction of the left main bronchus. It is not severe enough obstruction to consider stenting. 04/29/2017 will need oncology to see. This was partially obstructing left mainstem bronchus but I do not think it caused his respiratory failure acutely. 04/30/2017 squamous cell carcinoma of left lung with mediastinal involvement. If we can get him tuned up enough to tolerate it he will be considered for chemotherapy and radiation. Prognosis guarded Current Visit: Yes (6) COPD (chronic obstructive pulmonary disease) Status: Acute Assessment and plan: Continuing bronchodilators and steroids as well as empiric antibiotics. He is a CO2 retainer. 04/30/2017 using Diamox to reduce his PCO2. Current Visit: Yes (7) Respiratory failure Status: Acute Assessment and plan: ABG showed marked CO2 retention. Will use Diamox. Will start Aminophyllin. Will need to keep his PO2 around 60 in order to wean adequately. 04/30/2017 he was a retainer prior to acute respiratory failure. Need to keep PO2 relatively low. It was 63 yesterday afternoon. ABGs pending today. Current Visit: Yes
--- NOTE | 2017-04-30 08:27 | Cardiology Progress Note ---
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 IV left foot. Bilateral upper extremity edema, 1+. It was Pseudomonas and stenotrophomonas. Not Klebsiella. SHARONDA TO COMPLETE APPLICATIONS TRAINER: DR. LOREDO SUMMARY: Mr. Dodge, 77BM, with no prior history of cardiac disease, presented to the emergency department at [facility] April 23, 2017 with complaints of worsening shortness of breath. He was initially seen at [facility] but transferred to our facility for pulmonary consultation. CT Chest at [facility] revealed abnormal results concerning for neoplastic adenopathy. Dr. Naqvi and Dr. Elliott are now following. Pathology has returned revealing squamous cell lung cancer. This partially obstructs his left main bronchus and involves the mediastinum. He is not a candidate for surgery. He was also found to be in atrial fibrillation with rapid ventricular response. Cardizem was initiated in the emergency department. April 26, 2017, patient experienced respiratory arrest. Since that time, he converted to normal sinus rhythm. Echocardiogram April 25, 2017 reveals the following: EF 60% , no significant valvular abnormality. RVSP 52 mmHg. APRIL 29, 2017: Remains intubated at this time. Hopefully, patient will be extubated soon. For the past 24 hours, blood pressure has been elevated, systolic blood pressure averaging 140s-170s. He is having frequent PVCs, unifocal. Also, one episode of a second-degree AV block type I. He is currently maintained on Diltiazem 30 mg per NGT QID, Metoprolol tartrate 50 mg per NGT BID. I will increase his diltiazem to 60 mg QID with hold parameters. He is also receiving low-dose Lovenox and, if no invasive procedures to be performed, will need full anticoagulation. He is at high risk of significant bleeding given his squamous cell carcinoma of the lung. I will further discuss with Dr. Crawley and await additional recommendations. APRIL 30, 2017: Little change overnight. Patient did undergo some CPAP trials yesterday and tolerated fairly well. Chest x-ray reveals an infiltrate at the left base, small. Diamox has been added to help with diuresis. Vital signs have remained stable. Hopefully, we can start formal anticoagulation soon. He continues with IV Aminophylline, Propofol. ASSESSMENT/PLAN: 1. ATRIAL FIBRILLATION W/ RVR - Now NSR. Will need full anticoagulation when okay with Pulmonology and Oncology. 2. ACUTE BRONCHITIS - He is being treated with antibiotics and steroids. 3. SQUAMOUS CELL CARCINOMA OF LUNG - Dr. Naqvi and Dr. Elliott addressing. 4. RESPIRATORY ARREST - Currently intubated. Continue current plan of care. 5. FORMER TOBACCO ABUSE - History of 20 years smoking, reportedly quit approximately 12 years ago. 6. HYPERTENSION - Better controlled overnight with increased dose of betablocker. Exam (Progress Note) - Constitutional Vitals: Period Temp Pulse Resp BP Sys/Srivastava Pulse Ox Last 24 Hr 97 F-98 F 45-85 10-23 93-172/35-73 92-100 Exam: General: [Appears well with no apparent distress.] [Cooperative. ] [Appears comfortable.] HEENT: [PERRL, normocephalic, atraumatic. Mucous membranes moist. No jaundice noted. Conjunctiva moist and clear, sclerae anicteric] Neck: No obvious JVD/HJR, no thyromegaly. No carotid bruit appreciated Cardiac: [Regular rate and rhythm.] [No obvious murmur rub or gallop.] Lungs: [Rhonchi noted throughout both lung alan. Intubated with symmetrical chest wall movements. Abdomen: Soft, bowel sounds normoactive. Nontender and nondistended. No abdominal bruit or thrill noted. No masses noted. Musculoskeletal: No fluid collection. Decreased range of motion is noted. Extremities: No clubbing, cyanosis noted. [ No edema noted.] Upper extremity pulses 2+. Lower extremity pulses 2+. Capillary refill less than 3 seconds. Skin: No unusual lesions or rashes. No skin breakdown appreciated. Neuro: Moves all extremities well without hemiparesis or paralysis. No essential tremor is appreciated. Result/EKG - Labs CBC & BMP: 04/30/17 04:48 04/30/17 04:48 Lab Results: I have reviewed the past 24 hour labs Labs: Laboratory Results - last 24 hr 04/29/17 04/29/17 04/29/17 11:32 15:56 20:08 WBC RBC Hgb Hct MCV MCH MCHC RDW Plt Count MPV Neut % (Auto) Lymph % (Auto) Ralls % (Auto) Eos % (Auto) Baso % (Auto) Neut # (Auto) Lymph # (Auto) Ralls # (Auto) Eos # (Auto) Baso # (Auto) Total Counted Immature Gran % Nucleated RBC % Immature Gran # Segmented Neutrophils Lymphocytes Monocytes Nucleated RBCs # Platelet Estimate Hypochromasia Morphology Comment Sodium Potassium Chloride Carbon Dioxide Anion Gap BUN Creatinine GFR Calculation BUN/Creatinine Ratio Glucose POC Glucose 180 H 166 H 195 H Calculated Osmolality Calcium Magnesium Theophylline 04/30/17 04/30/17 04/30/17 04:48 04:48 04:48 WBC 13.0 H D RBC 3.97 Hgb 11.2 L Hct 35.3 L MCV 88.9 MCH 28 MCHC 31.7 L RDW 14.2 Plt Count 109 L MPV 10.4 Neut % (Auto) 90.5 H Lymph % (Auto) 4.2 L Ralls % (Auto) 4.9 Eos % (Auto) 0.0 Baso % (Auto) 0.0 Neut # (Auto) 11.8 H Lymph # (Auto) 0.6 L Ralls # (Auto) 0.6 Eos # (Auto) 0.0 Baso # (Auto) 0.0 Total Counted 100 Immature Gran % 0.4 Nucleated RBC % 0.0 Immature Gran # 0.05 Segmented Neutrophils 93 H Lymphocytes 5 L Monocytes 2 Nucleated RBCs # 0.00 Platelet Estimate Decreased Hypochromasia 1+ Morphology Comment Sodium 142 Potassium 4.5 Chloride 101 Carbon Dioxide 28 Anion Gap 17.5 H BUN 32 H Creatinine 1.40 H GFR Calculation 66 BUN/Creatinine Ratio 22.00 H Glucose 140 H POC Glucose Calculated Osmolality 291.1 Calcium 7.9 L Magnesium 2.4 Theophylline 5.8 L 04/30/17 07:31 WBC RBC Hgb Hct MCV MCH MCHC RDW Plt Count MPV Neut % (Auto) Lymph % (Auto) Ralls % (Auto) Eos % (Auto) Baso % (Auto) Neut # (Auto) Lymph # (Auto) Ralls # (Auto) Eos # (Auto) Baso # (Auto) Total Counted Immature Gran % Nucleated RBC % Immature Gran # Segmented Neutrophils Lymphocytes Monocytes Nucleated RBCs # Platelet Estimate Hypochromasia Morphology Comment Sodium Potassium Chloride Carbon Dioxide Anion Gap BUN Creatinine GFR Calculation BUN/Creatinine Ratio Glucose POC Glucose 192 H Calculated Osmolality Calcium Magnesium Theophylline - Diagnostic Findings Procedure: Chest x-ray: report reviewed by me - EKG EKG results: interpreted by me EKG shows: sinus rhythm
[2017-04-30 08:49] LABS: ABG Base Excess 7.8 MMOL/L (-2.5-2.5); ABG HCO3 31.6 MMOL/L (20-26); ABG Oxygen Saturation 94.5 % (95-100); ABG PCO2 49.5 MM HG (35-48); ABG PH 7.436 (7.35-7.45); ABG PO2 72.9 MM HG (80-95); ABG TCO2 30.2 MMOL/L (23-27)
[2017-04-30] MEDS: INSULIN LISPRO 100 UNIT/ML SUBCUT SCH ×4 (09:32→20:12)
[2017-04-30] MEDS: FUROSEMIDE 40 MG/4 ML VIAL IV SCH (09:34)
[2017-04-30] MEDS: METOPROLOL TARTRATE 50 MG TABLET PO SCH ×2 (09:34→21:33)
[2017-04-30] MEDS: DILTIAZEM 60 MG TABLET PO SCH ×4 (09:34→20:11)
[2017-04-30] MEDS: ENOXAPARIN 40 MG/0.4 ML SYRINGE SUBCUT SCH (09:35)
[2017-04-30] MEDS: AMINOPHYLLINE 500 MG in SODIUM CHLORIDE 0.9% 480 ML IV SCH (12:43)
--- NOTE | 2017-04-30 16:57 | Hospitalist Progress Note ---
Assessment and Plan (1) Atrial fibrillation with RVR Status: Resolved Current Visit: Yes (2) Hypertension Status: Chronic Current Visit: Yes (3) Respiratory failure Status: Acute Assessment and plan: Continue weaning as per Pulm. Cont antibiotics. Diuresing as well. Oncology following and will discuss with the patient's the diagnosis of lung CA and prognosis. Continue all supportive care. Current Visit: Yes Hospitalist: Subjective Interval history: 77 yo male with SSC of the left mainstem bronchus who was admitted with shortness of breath and found to have hypercapneic respiratory failure. Of note , he has a history of Tuberculosis with pulmonary scarring requiring partial lung resection. Bronchial washings and sputum culture with Stenotrophomonas and Pseudomonas respectively. Currently on Levofloxacin. Weaning from the Vent as tolerated per Pulm. Adding Diamox for diuresis given concern for slight pulmonary edema type pattern. Cardiology following as well. Exam - Constitutional Vitals: Period Temp Pulse Resp BP Sys/Srivastava Pulse Ox Last 24 Hr 97 F-98 F 59-93 10-20 93-127/35-72 92-100 General appearance: no acute distress - Head Head exam: Present: normal inspection, normocephalic, atraumatic - Respiratory Respiratory exam: Present: rhonchi, other (Intubated with symmetrical chest wall movement) - Cardiovascular Cardiovascular exam: Present: irregular rhythm. Absent: tachycardia - GI/Abdominal GI/Abdominal exam: Present: normal bowel sounds, soft. Absent: distended, tenderness Results - Labs CBC & BMP: 04/30/17 04:48 04/30/17 04:48
[2017-04-30] MEDS: LEVOFLOXACIN 500 MG TABLET PO SCH (17:51)
[2017-04-30] MEDS: CETIRIZINE 10 MG TABLET PO SCH (20:11)
[2017-04-30] MEDS: HYDROcodone/CHLORPHENIRAMINE ER 5 ML UDCUP PO SCH (20:26)
[2017-05-01] MEDS: PROPOFOL 1,000 MG/100 ML BOTTLE IV SCH (01:26)
[2017-05-01] MEDS: ALBUTEROL/IPRATROPIUM 3 ML NEB RESP TX SCH ×4 (01:29→19:57)
[2017-05-01 03:53] LABS: Allen Test Positive; Pt O2 Delivery Device Ventilator
[2017-05-01 03:54] LABS: ABG HCO3 30.8 MMOL/L (20-26); ABG Oxygen Saturation 95.3 % (95-100); ABG PCO2 49.4 MM HG (35-48); ABG PH 7.426 (7.35-7.45); ABG PO2 76.7 MM HG (80-95); ABG TCO2 29.5 MMOL/L (23-27)
[2017-05-01 04:43] LABS: Basophils % 0.1 % (0.0-0.8); Hematocrit 31.9 VOL% (42.0-52.0); Hemoglobin 10.5 GM/DL (14.0-18.0); Immature Granulocytes % 0.7 %; Immature Granulocytes Absolute 0.09 #; Lymphocytes # 0.6 10*3/uL (1.4-4.0); Lymphocytes % 4.5 % (21.2-54.2); Mean Corpuscular HGB Conc 32.9 GM/DL (32-36); Mean Corpuscular Hemoglobin 29 PG (27-34); Mean Corpuscular Volume 86.4 FL (87-102); Monocytes # 0.8 10*3/uL (0.11-0.8); Monocytes % 5.8 % (1.7-12.7); Neutrophils # 11.9 10*3/uL (1.4-7.4); Neutrophils % 88.9 % (38.7-73.9); Platelet Count 131 T/CUMM (130-400); Red Blood Count 3.69 MC/CUMM (3.8-5.5); Red Cell Distribution Width 13.8 % (9.3-17.3); White Blood Count 13.4 T/CUMM (4-12)
[2017-05-01 05:08] LABS: Magnesium 2.4 MG/DL (1.8-2.4); Osmolality,Calculated 296.4 MOS/KG (273-304); Potassium 4.3 MMOL/L (3.5-5.1)
[2017-05-01] MEDS: methylPREDNISolone SOD SUC 125 MG/2 ML VIAL IV SCH ×2 (05:20→17:33)
[2017-05-01 05:34] LABS: Hypochromasia 1+; Lymphocytes 4 % (20-55); Nucleated Red Blood Cells 1 (0-5); Segmented Neutrophils 92 % (50-85); Total Cells Counted 100
[2017-05-01 05:35] LABS: Platelet Estimate Adequate
[2017-05-01] MEDS: FAMOTIDINE 20 MG/2 ML VIAL IV SCH ×2 (05:58→18:46)
--- NOTE | 2017-05-01 07:37 | XRay Report ---
Referring Physician: Stuart Naqvi MD Exam: XR chest 1V portable Date: May 01, 2017 at 3:31 AM Reason: Ventilator Comparison: Chest one view portable April 30, 2017 Findings: An endotracheal tube and feeding tube are again in place. The cardiac silhouette is upper normal in size. There is again volume loss at the right lung, which could be related to previous surgery or trauma. Calcified pleural plaques are also again seen on the right. There are opacities within the lower lung zones bilaterally and persistent density at the right lung apex. This could represent pulmonary edema or pneumonia superimposed upon atelectasis and scarring. Confirmation or exclusion of a neoplastic process is again difficult. No pneumothorax is identified, but there may be mild bilateral pleural fluid. The osseous structures appear stable. Impression: There has been no significant change. PROCEDURE INTERPRETED AT [facility] DEPARTMENT OF RADIOLOGY Final Report Signed by: Dr. De Perez
--- NOTE | 2017-05-01 07:59 | Pulmonology Progress Note ---
Pulmonary - PN: Subj Interval history: This 77-year-old man came in with increased shortness of breath. He had a CT at [place] about 2 weeks ago showing some mediastinal mass with partial extrinsic compression of left main bronchus. He is in now with cough congestion and increased shortness of breath. He underwent fiberoptic bronchoscopy this morning. He has tumor compressing the left main bronchus but there did appear to be an element of it involving the mucosa. Biopsies were taken and should give us an answer. His left main bronchus is not obstructed enough to require a stent. Likely would need combination of radiation and chemotherapy depending on cell type. We are waiting on retrieval of old records from 30 years ago when he had surgery on his right long and a thoracoplasty. He had TB at that time. 04/25/2017 patient had episodes of tachyarrhythmia during the night. He had a carotid massage and some IV medications per hospitalist service. This morning it appears that he has atrial flutter with 2-1 block and heart rate around 150. He does not seem real symptomatic. He is alert. Yesterday his ABG showed CO2 retention when he was on 4 L of oxygen. We have reduced the oxygen. Have not repeated the ABGs. Pathology from biopsy done yesterday should be out tomorrow. 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 He had a decortication done by Dr. Matos. He had full treatment for TB and was cured. This accounts for his abnormal x-ray on the right side. He did have a thoracoplasty at that time as well. At this point we need cardiology to help with his tachyarrhythmia, and we await his pathology report. Shortly will not be a surgical candidate by the location of the tumor and physiologically. 04/26/17 pathology has come back showing squamous cell lung cancer. This partially obstructs his left main bronchus and involves the mediastinum. Not a candidate for surgery. Probably radiation and/or chemotherapy. Need oncology to see. Findings were discussed with the patient and his family. I Would be in favor of treatment as soon as can be done. 04/29/2017 patient became more sluggish in the day on Saturday and had an elevated PCO2 requiring intubation this time. He has been on the ventilator now weekend. His chest x-ray looks fairly good. 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 Did not tolerate CPAP yesterday. He is on a sodium acetate infusion, and he has a metabolic alkalosis. We will stop that and start him on Diamox. Need to wean him with his PO2 around 60 so we will have problems with retaining if possible. We will also place on Aminophyllin. 04/30/2017 patient tolerated some CPAP yesterday. No ABGs this morning. Chest x- ray shows a little infiltrate at the left base. Probably needs diuresing a little further. Hopefully Diamox will help with that. 05/01/2017 patient did not tolerate CPAP yesterday. He is on propofol. We need to get him off that and try Precedex. He had apnea during CPAP trials. He has elevated PCO2 which we are trying to correct with Diamox. Hopefully can proceed with CPAP. Exam (Progress Note) - Constitutional Vitals: Period Temp Pulse Resp BP Sys/Srivastava Pulse Ox Last 24 Hr 97.0 F-98.2 F 65-93 10-20 92-139/42-89 94-100 Exam: Patient is sedated and on the ventilator at present. Pupils react to light. Has orotracheal tube in place.. Neck supple no bruits. Chest reveals some rhonchi bilaterally. Heart irregular without murmurs. Abdomen soft nontender no masses. Extremities no clubbing cyanosis edema. Results - Labs CBC & BMP: 05/01/17 04:25 05/01/17 04:25 Lab Results: I have reviewed the past 24 hour labs - Diagnostic Findings Procedure: Chest x-ray: image reviewed by me (Patchy left lower lobe infiltrate. Previous thoracoplasty on right. Left hilar mass. ET tube good position.) Assessment and Plan (1) Acute bronchitis Status: Acute Assessment and plan: He does have a cough and sputum production and rhonchi. We will treat him with antibiotics and steroids. Need to get cultures. Probably has some bronchopneumonia as well. 04/24/2017 being treated with antibiotics and steroids for acute bronchitis. 04/25/2017 continuing antibiotics and steroids. 04/26/17 this is better with steroids and antibiotics. These can be stopped in a couple of days. 04/29/2017 continuing antibiotics and steroids empirically. 04/30/2017 continuing antibiotics bronchodilator steroids. 05/01/2017 continuing empiric antibiotics and steroids. Also bronchodilators Current Visit: Yes (2) Abnormal CT scan, chest Status: Acute Assessment and plan: I have not been able to pull up the CT to review but reading the reports it indicates that he has some mediastinal adenopathy. I will plan bronchoscopy in the morning. Hopefully I will be able to review the films prior to that. he does have a remote history of some form of some form of tuberculosis. 04/24/2017 was able to review the CT and he has fairly large mass in the mediastinum/left hilum with compression of left main bronchus. He has had bronchoscopy this morning with biopsies. Await pathology from that. 04/25/2017 mass with partial obstruction of left main bronchus. 05/01/[address] scan due to squamous cell carcinoma with partial obstruction of left main bronchus. Current Visit: Yes (3) Atrial fibrillation with RVR Status: Resolved Assessment and plan: Rate is controlled. 04/24/2017. On the monitor during his bronchoscopy it is apparent that he has multifocal atrial tachycardia rather than atrial fibrillation at the present time. 04/25/2017 atrial flutter with RVR this morning. Cardiology to see 04/26/17 heart rate is now in the 100-110 range. Still has atrial flutter. Cardiology following. I am concerned about possible metastatic disease given that he has cancer in the left mediastinal/hilar area. 04/30/2017 sinus rhythm with PACs. Current Visit: Yes (4) Hilar lymphadenopathy Status: Acute Assessment and plan: Could be results of previous TB or he could have a malignancy. Plan to do bronchoscopy in the morning and see if anything is visible there. Also will get cultures for Mycobacterium and bacterial causes of this 04/24/2017 this is likely to be a primary malignancy. Biopsies are pending. See bronchoscopy report 04/25/2017 likely to be bronchogenic carcinoma. Pathology reported pending Current Visit: Yes (5) Squamous cell carcinoma of left lung Status: Acute Assessment and plan: Pathology has come back showing squamous cell cancer. It involves the left main bronchus. Involves the mediastinum and left hilum. Not candidate for surgery. Oncology to see. I would favor early radiation since he has partial obstruction of the left main bronchus. It is not severe enough obstruction to consider stenting. 04/29/2017 will need oncology to see. This was partially obstructing left mainstem bronchus but I do not think it caused his respiratory failure acutely. 04/30/2017 squamous cell carcinoma of left lung with mediastinal involvement. If we can get him tuned up enough to tolerate it he will be considered for chemotherapy and radiation. Prognosis guarded 05/01/2017 this will require treatment with radiation/chemotherapy once were able to liberate him from the ventilator. Prognosis not good. Current Visit: Yes (6) COPD (chronic obstructive pulmonary disease) Status: Acute Assessment and plan: Continuing bronchodilators and steroids as well as empiric antibiotics. He is a CO2 retainer. 04/30/2017 using Diamox to reduce his PCO2. 05/01/2017 he has CO2 retention due to his COPD. This is making weaning difficult. We need to keep his sedation to a minimum. Current Visit: Yes (7) Respiratory failure Status: Acute Assessment and plan: ABG showed marked CO2 retention. Will use Diamox. Will start Aminophyllin. Will need to keep his PO2 around 60 in order to wean adequately. 04/30/2017 he was a retainer prior to acute respiratory failure. Need to keep PO2 relatively low. It was 63 yesterday afternoon. ABGs pending today. 05/01/2017 he has hypercarbic respiratory failure. We have started Aminophyllin and Diamox. Current Visit: Yes
--- NOTE | 2017-05-01 08:56 | EKG Report ---
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
[2017-05-01] MEDS: INSULIN LISPRO 100 UNIT/ML SUBCUT SCH ×4 (09:32→20:32)
[2017-05-01] MEDS: ENOXAPARIN 40 MG/0.4 ML SYRINGE SUBCUT SCH (09:35)
[2017-05-01] MEDS: FUROSEMIDE 40 MG/4 ML VIAL IV SCH (09:36)
[2017-05-01] MEDS: DILTIAZEM 60 MG TABLET PO SCH ×4 (09:38→20:32)
[2017-05-01] MEDS: METOPROLOL TARTRATE 50 MG TABLET PO SCH ×2 (09:38→20:33)
--- NOTE | 2017-05-01 09:56 | Cardiology Progress Note ---
Assessment and Plan (1) Atrial fibrillation with RVR Status: Resolved Assessment and plan: SEE PLAN OF CARE LISTED BELOW Current Visit: Yes (2) Acute bronchitis Status: Acute Assessment and plan: SEE PLAN OF CARE LISTED BELOW Current Visit: Yes (3) Former tobacco use Status: Resolved Assessment and plan: SEE PLAN OF CARE LISTED BELOW Current Visit: Yes (4) Hypertension Status: Chronic Assessment and plan: SEE PLAN OF CARE LISTED BELOW Current Visit: Yes (5) Squamous cell carcinoma of left lung Status: Acute Assessment and plan: SEE PLAN OF CARE LISTED BELOW Current Visit: Yes (6) Respiratory failure Status: Acute Assessment and plan: SEE PLAN OF CARE LISTED BELOW Current Visit: Yes Cardiology - PN: Subj Interval history: GRE TUTOR: DR. LOREDO SUMMARY: Mr. Dodge, 77BM, with no prior history of cardiac disease, presented to the emergency department at [facility] April 23, 2017 with complaints of worsening shortness of breath. He was initially seen at [facility] but transferred to our facility for pulmonary consultation. CT Chest at [facility] revealed abnormal results concerning for neoplastic adenopathy. Dr. Naqvi and Dr. Elliott are now following. Pathology has returned revealing squamous cell lung cancer. This partially obstructs his left main bronchus and involves the mediastinum. He is not a candidate for surgery. He was also found to be in atrial fibrillation with rapid ventricular response. Cardizem was initiated in the emergency department. April 26, 2017, patient experienced respiratory arrest. Since that time, he converted to normal sinus rhythm. Echocardiogram April 25, 2017 reveals the following: EF 60% , no significant valvular abnormality. RVSP 52 mmHg. APRIL 29, 2017: Remains intubated at this time. Hopefully, patient will be extubated soon. For the past 24 hours, blood pressure has been elevated, systolic blood pressure averaging 140s-170s. He is having frequent PVCs, unifocal. Also, one episode of a second-degree AV block type I. He is currently maintained on Diltiazem 30 mg per NGT QID, Metoprolol tartrate 50 mg per NGT BID. I will increase his diltiazem to 60 mg QID with hold parameters. He is also receiving low-dose Lovenox and, if no invasive procedures to be performed, will need full anticoagulation. He is at high risk of significant bleeding given his squamous cell carcinoma of the lung. I will further discuss with Dr. Crawley and await additional recommendations. APRIL 30, 2017: Little change overnight. Patient did undergo some CPAP trials yesterday and tolerated fairly well. Chest x-ray reveals an infiltrate at the left base, small. Diamox has been added to help with diuresis. Vital signs have remained stable. Hopefully, we can start formal anticoagulation soon. He continues with IV Aminophylline, Propofol. MAY 01, 2017: Patient remains intubated this morning. He did not tolerate CPAP trials yesterday, having apneic spells with his trials. He is waking and following commands. Patient's PCO2 remains elevated, no improvement overnight. Diamox continues in an effort to decrease PCO2. Creatinine has increased from 1.4-1.8 overnight. Patient continues to have frequent PACs, often in a bigeminal pattern. No recurrence of atrial fibrillation is noted per telemetry since April 26, 2017. Vital signs are stable. ASSESSMENT/PLAN: 1. ATRIAL FIBRILLATION W/ RVR - Now NSR with frequent PACs. Will need full anticoagulation when okay with Pulmonology and Oncology. Continues to take short acting calcium channel caleb. When he can take medications by mouth, will transition to long-acting agent. 2. ACUTE BRONCHITIS - He is being treated with antibiotics and steroids. 3. SQUAMOUS CELL CARCINOMA OF LUNG - Dr. Naqvi and Dr. Elliott addressing. 4. RESPIRATORY ARREST - Currently intubated. Continue current plan of care. 5. FORMER TOBACCO ABUSE - History of 20 years smoking, reportedly quit approximately 12 years ago. 6. HYPERTENSION - Better controlled overnight with increased dose of betablocker. 7. ACUTE RENAL INSUFFICIENCY - STAGE II. Continue to monitor creatinine daily. Exam (Progress Note) - Constitutional Vitals: Period Temp Pulse Resp BP Sys/Srivastava Pulse Ox Last 24 Hr 97.0 F-98.2 F 65-93 10-20 92-139/44-89 94-100 Exam: General: [Appears well with no apparent distress.] [Cooperative. ] [Appears comfortable.] HEENT: [Bilateral arcus noted. Normocephalic, atraumatic. Mucous membranes moist. No jaundice noted. Conjunctiva moist and clear, sclerae anicteric] Neck: No obvious JVD/HJR, no thyromegaly. No carotid bruit appreciated Cardiac: [Regular rate and rhythm.] [No obvious murmur rub or gallop.] Lungs: [Rhonchi noted throughout both lung alan. Intubated with symmetrical chest wall movements. Abdomen: Soft, bowel sounds normoactive. Nontender and nondistended. No abdominal bruit or thrill noted. No masses noted. Musculoskeletal: No fluid collection. Decreased range of motion is noted. Extremities: No clubbing, cyanosis noted. [ No edema noted.] Upper extremity pulses 2+. Lower extremity pulses 2+. Capillary refill less than 3 seconds. Skin: No unusual lesions or rashes. No skin breakdown appreciated. Neuro: Moves all extremities well without hemiparesis or paralysis. Waking and following commands. No essential tremor is appreciated. Result/EKG - Labs CBC & BMP: 05/01/17 04:25 05/01/17 04:25 Lab Results: I have reviewed the past 24 hour labs Labs: Laboratory Results - last 24 hr 04/30/17 04/30/17 04/30/17 11:31 16:12 19:25 WBC RBC Hgb Hct MCV MCH MCHC RDW Plt Count MPV Neut % (Auto) Lymph % (Auto) [place] % (Auto) Eos % (Auto) Baso % (Auto) Neut # (Auto) Lymph # (Auto) [place] # (Auto) Eos # (Auto) Baso # (Auto) Total Counted Immature Gran % Nucleated RBC % Immature Gran # Segmented Neutrophils Lymphocytes Monocytes Nucleated RBCs Nucleated RBCs # Platelet Estimate Hypochromasia ABG pH ABG pCO2 ABG pO2 ABG HCO3 ABG Total CO2 ABG O2 Saturation ABG Base Excess FiO2 Sodium Potassium Chloride Carbon Dioxide Anion Gap BUN Creatinine GFR Calculation BUN/Creatinine Ratio Glucose POC Glucose 184 H 173 H 160 H Calculated Osmolality Calcium Magnesium Theophylline 05/01/17 05/01/17 05/01/17 03:45 04:25 04:25 WBC 13.4 H RBC 3.69 L Hgb 10.5 L Hct 31.9 L MCV 86.4 L MCH 29 MCHC 32.9 RDW 13.8 Plt Count 131 D MPV 10.0 Neut % (Auto) 88.9 H Lymph % (Auto) 4.5 L [place] % (Auto) 5.8 Eos % (Auto) 0.0 Baso % (Auto) 0.1 Neut # (Auto) 11.9 H Lymph # (Auto) 0.6 L [place] # (Auto) 0.8 Eos # (Auto) 0.0 Baso # (Auto) 0.0 Total Counted 100 Immature Gran % 0.7 Nucleated RBC % 0.0 Immature Gran # 0.09 Segmented Neutrophils 92 H Lymphocytes 4 L Monocytes 4 Nucleated RBCs 1 Nucleated RBCs # 0.00 Platelet Estimate Adequate Hypochromasia 1+ ABG pH 7.426 ABG pCO2 49.4 H ABG pO2 76.7 L ABG HCO3 30.8 H ABG Total CO2 29.5 H ABG O2 Saturation 95.3 ABG Base Excess 7.0 H FiO2 28.00 Sodium Potassium Chloride Carbon Dioxide Anion Gap BUN Creatinine GFR Calculation BUN/Creatinine Ratio Glucose POC Glucose Calculated Osmolality Calcium Magnesium Theophylline 8.3 L 05/01/17 05/01/17 04:25 07:35 WBC RBC Hgb Hct MCV MCH MCHC RDW Plt Count MPV Neut % (Auto) Lymph % (Auto) [place] % (Auto) Eos % (Auto) Baso % (Auto) Neut # (Auto) Lymph # (Auto) [place] # (Auto) Eos # (Auto) Baso # (Auto) Total Counted Immature Gran % Nucleated RBC % Immature Gran # Segmented Neutrophils Lymphocytes Monocytes Nucleated RBCs Nucleated RBCs # Platelet Estimate Hypochromasia ABG pH ABG pCO2 ABG pO2 ABG HCO3 ABG Total CO2 ABG O2 Saturation ABG Base Excess FiO2 Sodium 140 Potassium 4.3 Chloride 99 Carbon Dioxide 30 Anion Gap 15.3 H BUN 54 H D Creatinine 1.80 H GFR Calculation 49 BUN/Creatinine Ratio 30.00 H Glucose 159 H POC Glucose 212 H Calculated Osmolality 296.4 Calcium 8.0 L Magnesium 2.4 Theophylline - Diagnostic Findings Procedure: Chest x-ray: report reviewed by md - EKG EKG results: interpreted by md EKG shows: sinus rhythm (frequent PACs often in bigeminal pattern, occasional unifocal PVC. )
[2017-05-01] MEDS: DEXMEDETOMIDINE 200 MCG in SODIUM CHLORIDE 0.9% 48 ML IV SCH ×2 (10:34→20:42)
--- NOTE | 2017-05-01 14:18 | Hospitalist Progress Note ---
Assessment and Plan (1) Atrial fibrillation with RVR Status: Resolved Current Visit: Yes (2) Hypertension Status: Chronic Current Visit: Yes (3) Respiratory failure Status: Acute Assessment and plan: 04/30/17. Continue weaning as per Pulm. Cont antibiotics. Diuresing as well. Oncology following and will discuss with the patient's the diagnosis of lung CA and prognosis. Continue all supportive care. 05/01/17. Not much to add from a primary medicine standpoint. Having difficulty weaning from the vent. Management per pulm. Continuing with diuresis. S.cr. did bump. WBC count stably elevated. On IV steroids. Also on abx. BP and HR stable. Afebrile. No obvious signs of new infection. Will continue to monitor. Oncology, Pulm, and Cards following. Current Visit: Yes Hospitalist: Subjective Interval history: 77 yo male with SSC of the left mainstem bronchus admitted with shortness of breath and found to have hypercapneic respiratory failure. Of note, he has a history of Tuberculosis with pulmonary scarring requiring partial lung resection. Bronchial washings and sputum culture with Stenotrophomonas and Pseudomonas respectively. Currently on Levofloxacin. Attempting to wean from the vent but not tolerating trials currently. Continuing with Diamox for diuresis given concern for slight pulmonary edema type pattern. Cardiology following as well. Exam - Constitutional Vitals: Period Temp Pulse Resp BP Sys/Srivastava Pulse Ox Last 24 Hr 97.0 F-98.2 F 54-93 10-20 92-139/44-89 94-100 Exam: General appearance: Remains intubated and sedated. - Head Head exam: Present: normal inspection, normocephalic, atraumatic - Respiratory Respiratory exam: Present: rhonchi, other (Intubated with symmetrical chest wall movement) - Cardiovascular Cardiovascular exam: Present: Regular rhythm without tachycardia. - GI/Abdominal GI/Abdominal exam: Present: normal bowel sounds, soft. Absent: distended, tenderness Results - Labs CBC & BMP: 05/01/17 04:25 05/01/17 04:25
[2017-05-01] MEDS: AMINOPHYLLINE 500 MG in SODIUM CHLORIDE 0.9% 480 ML IV SCH (14:37)
[2017-05-01] MEDS: LEVOFLOXACIN 500 MG TABLET PO SCH (17:34)
[2017-05-01] MEDS: HYDROcodone/CHLORPHENIRAMINE ER 5 ML UDCUP PO SCH (20:33)
[2017-05-01] MEDS: CETIRIZINE 10 MG TABLET PO SCH (20:35)
[2017-05-02] MEDS: ALBUTEROL/IPRATROPIUM 3 ML NEB RESP TX SCH ×4 (00:10→19:50)
[2017-05-02] MEDS: DEXMEDETOMIDINE 200 MCG in SODIUM CHLORIDE 0.9% 48 ML IV SCH (02:40)
[2017-05-02] MEDS: methylPREDNISolone SOD SUC 125 MG/2 ML VIAL IV SCH ×2 (03:13→17:00)
[2017-05-02 05:53] LABS: Hematocrit 31.2 VOL% (42.0-52.0); Hemoglobin 10.3 GM/DL (14.0-18.0); Immature Granulocytes Absolute 0.11 #; Lymphocytes # 0.5 10*3/uL (1.4-4.0); Lymphocytes % 4.6 % (21.2-54.2); Mean Corpuscular Hemoglobin 29 PG (27-34); Mean Corpuscular Volume 86.7 FL (87-102); Mean Platelet Volume 10.7 FL (9.6-12.0); Monocytes # 0.6 10*3/uL (0.11-0.8); Monocytes % 5.4 % (1.7-12.7); Neutrophils # 9.8 10*3/uL (1.4-7.4); Platelet Count 133 T/CUMM (130-400); Red Cell Distribution Width 13.7 % (9.3-17.3); White Blood Count 11.1 T/CUMM (4-12)
[2017-05-02 06:26] LABS: Band Neutrophils 3 % (0-10); Hypochromasia Slight; Lymphocytes 6 % (20-55); Segmented Neutrophils 88 % (50-85); Total Cells Counted 100
[2017-05-02 06:27] LABS: Calcium 7.9 MG/DL (8.5-10.1); Magnesium 2.4 MG/DL (1.8-2.4); Osmolality,Calculated 303.3 MOS/KG (273-304); Potassium 4.1 MMOL/L (3.5-5.1)
[2017-05-02] MEDS: FAMOTIDINE 20 MG/2 ML VIAL IV SCH ×2 (06:55→20:10)
--- NOTE | 2017-05-02 07:45 | Pulmonology Progress Note ---
Pulmonary - PN: Subj Interval history: This 77-year-old man came in with increased shortness of breath. He had a CT at [place] about 2 weeks ago showing some mediastinal mass with partial extrinsic compression of left main bronchus. He is in now with cough congestion and increased shortness of breath. He underwent fiberoptic bronchoscopy this morning. He has tumor compressing the left main bronchus but there did appear to be an element of it involving the mucosa. Biopsies were taken and should give us an answer. His left main bronchus is not obstructed enough to require a stent. Likely would need combination of radiation and chemotherapy depending on cell type. We are waiting on retrieval of old records from 30 years ago when he had surgery on his right long and a thoracoplasty. He had TB at that time. 04/25/2017 patient had episodes of tachyarrhythmia during the night. He had a carotid massage and some IV medications per hospitalist service. This morning it appears that he has atrial flutter with 2-1 block and heart rate around 150. He does not seem real symptomatic. He is alert. Yesterday his ABG showed CO2 retention when he was on 4 L of oxygen. We have reduced the oxygen. Have not repeated the ABGs. Pathology from biopsy done yesterday should be out tomorrow. 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 He had a decortication done by Dr. Matos. He had full treatment for TB and was cured. This accounts for his abnormal x-ray on the right side. He did have a thoracoplasty at that time as well. At this point we need cardiology to help with his tachyarrhythmia, and we await his pathology report. Shortly will not be a surgical candidate by the location of the tumor and physiologically. 04/26/17 pathology has come back showing squamous cell lung cancer. This partially obstructs his left main bronchus and involves the mediastinum. Not a candidate for surgery. Probably radiation and/or chemotherapy. Need oncology to see. Findings were discussed with the patient and his family. I Would be in favor of treatment as soon as can be done. 04/29/2017 patient became more sluggish in the day on Saturday and had an elevated PCO2 requiring intubation this time. He has been on the ventilator now weekend. His chest x-ray looks fairly good. 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 Did not tolerate CPAP yesterday. He is on a sodium acetate infusion, and he has a metabolic alkalosis. We will stop that and start him on Diamox. Need to wean him with his PO2 around 60 so we will have problems with retaining if possible. We will also place on Aminophyllin. 04/30/2017 patient tolerated some CPAP yesterday. No ABGs this morning. Chest x- ray shows a little infiltrate at the left base. Probably needs diuresing a little further. Hopefully Diamox will help with that. 05/01/2017 patient did not tolerate CPAP yesterday. He is on propofol. We need to get him off that and try Precedex. He had apnea during CPAP trials. He has elevated PCO2 which we are trying to correct with Diamox. Hopefully can proceed with CPAP. 05/02/2017 patient is tolerating CPAP much better. Fall has been stopped. Patient is alert and calm at present. ABGs acceptable. Will try to get extubated today. Will need BiPAP postextubation at least at night. Exam (Progress Note) - Constitutional Vitals: Period Temp Pulse Resp BP Sys/Srivastava Pulse Ox Last 24 Hr 97.1 F-98.0 F 54-93 10-24 82-131/47-88 90-100 Exam: Patient is alert, calm, and on the ventilator at present. Pupils react to light. Has orotracheal tube in place.. Neck supple no bruits. Chest reveals some rhonchi bilaterally. Heart irregular without murmurs. Abdomen soft nontender no masses. Extremities no clubbing cyanosis edema. Results - Labs CBC & BMP: 05/02/17 05:20 05/02/17 05:20 Lab Results: I have reviewed the past 24 hour labs - Diagnostic Findings Procedure: Chest x-ray: image reviewed by me (Left long essentially clear. Previous right thoracoplasty.) Assessment and Plan (1) Acute bronchitis Status: Acute Assessment and plan: He does have a cough and sputum production and rhonchi. We will treat him with antibiotics and steroids. Need to get cultures. Probably has some bronchopneumonia as well. 04/24/2017 being treated with antibiotics and steroids for acute bronchitis. 04/25/2017 continuing antibiotics and steroids. 04/26/17 this is better with steroids and antibiotics. These can be stopped in a couple of days. 04/29/2017 continuing antibiotics and steroids empirically. 04/30/2017 continuing antibiotics bronchodilator steroids. 05/01/2017 continuing empiric antibiotics and steroids. Also bronchodilators 05/02/2017 no bronchospasm. Current Visit: Yes (2) Abnormal CT scan, chest Status: Acute Assessment and plan: I have not been able to pull up the CT to review but reading the reports it indicates that he has some mediastinal adenopathy. I will plan bronchoscopy in the morning. Hopefully I will be able to review the films prior to that. he does have a remote history of some form of some form of tuberculosis. 04/24/2017 was able to review the CT and he has fairly large mass in the mediastinum/left hilum with compression of left main bronchus. He has had bronchoscopy this morning with biopsies. Await pathology from that. 04/25/2017 mass with partial obstruction of left main bronchus. 05/01/[address] scan due to squamous cell carcinoma with partial obstruction of left main bronchus. Current Visit: Yes (3) Atrial fibrillation with RVR Status: Resolved Assessment and plan: Rate is controlled. 04/24/2017. On the monitor during his bronchoscopy it is apparent that he has multifocal atrial tachycardia rather than atrial fibrillation at the present time. 04/25/2017 atrial flutter with RVR this morning. Cardiology to see 04/26/17 heart rate is now in the 100-110 range. Still has atrial flutter. Cardiology following. I am concerned about possible metastatic disease given that he has cancer in the left mediastinal/hilar area. 04/30/2017 sinus rhythm with PACs. 05/02/2017 rate is controlled Current Visit: Yes (4) Hilar lymphadenopathy Status: Acute Assessment and plan: Could be results of previous TB or he could have a malignancy. Plan to do bronchoscopy in the morning and see if anything is visible there. Also will get cultures for Mycobacterium and bacterial causes of this 04/24/2017 this is likely to be a primary malignancy. Biopsies are pending. See bronchoscopy report 04/25/2017 likely to be bronchogenic carcinoma. Pathology reported pending Current Visit: Yes (5) Squamous cell carcinoma of left lung Status: Acute Assessment and plan: Pathology has come back showing squamous cell cancer. It involves the left main bronchus. Involves the mediastinum and left hilum. Not candidate for surgery. Oncology to see. I would favor early radiation since he has partial obstruction of the left main bronchus. It is not severe enough obstruction to consider stenting. 04/29/2017 will need oncology to see. This was partially obstructing left mainstem bronchus but I do not think it caused his respiratory failure acutely. 04/30/2017 squamous cell carcinoma of left lung with mediastinal involvement. If we can get him tuned up enough to tolerate it he will be considered for chemotherapy and radiation. Prognosis guarded 05/01/2017 this will require treatment with radiation/chemotherapy once were able to liberate him from the ventilator. Prognosis not good. 05/02/2017 biopsy-proven squamous cell carcinoma left main bronchus. Has mediastinal and left hilar mass with adenopathy. Hopefully can tune him up where he can get radiation or chemotherapy or both. Current Visit: Yes (6) COPD (chronic obstructive pulmonary disease) Status: Acute Assessment and plan: Continuing bronchodilators and steroids as well as empiric antibiotics. He is a CO2 retainer. 04/30/2017 using Diamox to reduce his PCO2. 05/01/2017 he has CO2 retention due to his COPD. This is making weaning difficult. We need to keep his sedation to a minimum. 05/02/2017 continuing bronchodilators. Likely will need BiPAP once he is extubated. Current Visit: Yes (7) Respiratory failure Status: Acute Assessment and plan: ABG showed marked CO2 retention. Will use Diamox. Will start Aminophyllin. Will need to keep his PO2 around 60 in order to wean adequately. 04/30/2017 he was a retainer prior to acute respiratory failure. Need to keep PO2 relatively low. It was 63 yesterday afternoon. ABGs pending today. 05/01/2017 he has hypercarbic respiratory failure. We have started Aminophyllin and Diamox. 05/02/2017 hypercarbic respiratory failure. Aminophyllin and Diamox have helped. PCO2 is lower. He is alert and calm. Hopefully can get extubated today Current Visit: Yes
--- NOTE | 2017-05-02 08:06 | Oncology Progress Note ---
Assessment and Plan (1) Respiratory failure Status: Acute Current Visit: Yes (2) Hilar lymphadenopathy Status: Acute Current Visit: Yes (3) Lung cancer Status: Acute Current Visit: Yes Oncology Subjective PN Interval history: Mr. Dodge is now awake and alert this morning. This is the first time I have been able to have a conversation with him. I explained to him that he has a left-sided lung cancer that is at least stage III given the location of his lymph nodes. Right now there is no set plan for treatment given all of his other issues going on. He will definitely need rehabilitation after his current hospitalization. I told him that once he is off the ventilator I will sit down with him and discuss her options. He will need further staging with a PET scan down the road. I am still thinking that we may only follow him conservatively and consider hospice given his age and other comorbidities. If he does improve significantly, we may consider concurrent chemotherapy and radiation. This will be decided at a later date. I once again tried to call his but was unable to reach her. Exam - Constitutional Vitals: Period Temp Pulse Resp BP Sys/Srivastava Pulse Ox Last 24 Hr 97.1 F-98.0 F 54-93 10-23 82-131/47-88 90-100 General appearance: normal weight, no acute distress - Head Head Exam: Present: normocephalic, atraumatic - Eye Eye Exam: Present: EOMI Pupils: Present: PERRL - Neck Neck exam: Absent: lymphadenopathy, thyromegaly - Respiratory Respiratory exam: Present: CTAB. Absent: wheezes - Cardiovascular Cardiovascular exam: Present: RRR. Absent: JVD - GI/Abdominal GI/Abdominal exam: Present: soft. Absent: ascites, distended, mass - Neurological Exam Neurological exam: Present: alert - Skin Skin exam: Present: warm, dry Results - Labs CBC & BMP: 05/02/17 05:20 05/02/17 05:20 Lab Results: I have reviewed the past 24 hour labs
[2017-05-02] MEDS: INSULIN LISPRO 100 UNIT/ML SUBCUT SCH ×4 (08:08→20:10)
[2017-05-02 08:48] LABS: Pt O2 Delivery Device Ventilator
[2017-05-02 08:49] LABS: ABG Base Excess 4.3 MMOL/L (-2.5-2.5); ABG HCO3 28.1 MMOL/L (20-26); ABG Oxygen Saturation 92.8 % (95-100); ABG PCO2 51.3 MM HG (35-48); ABG PH 7.381 (7.35-7.45); ABG PO2 68.8 MM HG (80-95); ABG TCO2 27.3 MMOL/L (23-27)
[2017-05-02] MEDS: DILTIAZEM 60 MG TABLET PO SCH ×4 (09:36→20:09)
[2017-05-02] MEDS: ENOXAPARIN 40 MG/0.4 ML SYRINGE SUBCUT SCH (09:36)
[2017-05-02] MEDS: FUROSEMIDE 40 MG/4 ML VIAL IV SCH (09:36)
[2017-05-02] MEDS: METOPROLOL TARTRATE 50 MG TABLET PO SCH ×2 (09:36→20:09)
--- NOTE | 2017-05-02 10:02 | Cardiology Progress Note ---
Assessment and Plan - Time spent with patient Time spent with patient: Greater than 30 minutes (1) Atrial fibrillation with RVR Status: Resolved Assessment and plan: SEE PLAN OF CARE LISTED BELOW Current Visit: Yes (2) Acute bronchitis Status: Acute Assessment and plan: SEE PLAN OF CARE LISTED BELOW Current Visit: Yes (3) Former tobacco use Status: Resolved Assessment and plan: SEE PLAN OF CARE LISTED BELOW Current Visit: Yes (4) Hypertension Status: Chronic Assessment and plan: SEE PLAN OF CARE LISTED BELOW Current Visit: Yes (5) Squamous cell carcinoma of left lung Status: Acute Assessment and plan: SEE PLAN OF CARE LISTED BELOW Current Visit: Yes (6) Respiratory failure Status: Acute Assessment and plan: SEE PLAN OF CARE LISTED BELOW Current Visit: Yes Cardiology - PN: Subj Interval history: SHARONDA TO COMPLETE Hopes to extuabet today. Aminoph continues. Cooperative. During CPAP trials, intermittent atrial flutter started again. 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 Dodge, 77BM, with no prior history of cardiac disease, presented to the emergency department at [facility] April 23, 2017 with complaints of worsening shortness of breath. He was initially seen at [facility] but transferred to our facility for pulmonary consultation. CT Chest at [facility] revealed abnormal results concerning for neoplastic adenopathy. Dr. Naqvi and Dr. Elliott are now following. Pathology has returned revealing squamous cell lung cancer. This partially obstructs his left main bronchus and involves the mediastinum. He is not a candidate for surgery. He was also found to be in atrial fibrillation with rapid ventricular response. Cardizem was initiated in the emergency department. April 26, 2017, patient experienced respiratory arrest. Since that time, he converted to normal sinus rhythm. Echocardiogram April 25, 2017 reveals the following: EF 60% , no significant valvular abnormality. RVSP 52 mmHg. APRIL 29, 2017: Remains intubated at this time. Hopefully, patient will be extubated soon. For the past 24 hours, blood pressure has been elevated, systolic blood pressure averaging 140s-170s. He is having frequent PVCs, unifocal. Also, one episode of a second-degree AV block type I. He is currently maintained on Diltiazem 30 mg per NGT QID, Metoprolol tartrate 50 mg per NGT BID. I will increase his diltiazem to 60 mg QID with hold parameters. He is also receiving low-dose Lovenox and, if no invasive procedures to be performed, will need full anticoagulation. He is at high risk of significant bleeding given his squamous cell carcinoma of the lung. I will further discuss with Dr. Crawley and await additional recommendations. APRIL 30, 2017: Little change overnight. Patient did undergo some CPAP trials yesterday and tolerated fairly well. Chest x-ray reveals an infiltrate at the left base, small. Diamox has been added to help with diuresis. Vital signs have remained stable. Hopefully, we can start formal anticoagulation soon. He continues with IV Aminophylline, Propofol. MAY 01, 2017: Patient remains intubated this morning. He did not tolerate CPAP trials yesterday, having apneic spells with his trials. He is waking and following commands. Patient's PCO2 remains elevated, no improvement overnight. Diamox continues in an effort to decrease PCO2. Creatinine has increased from 1.4-1.8 overnight. Patient continues to have frequent PACs, often in a bigeminal pattern. No recurrence of atrial fibrillation is noted per telemetry since April 26, 2017. Vital signs are stable. MAY 02, 2017: Patient may be extubated today. He is awake, following commands and improving each day. He continues to require Aminophyllin IV. During CPAP trials this morning, patient has had intermittent atrial flutter. Originally, were consulted for atrial flutter but he has remained in sinus rhythm until this morning. At present, he is in normal sinus rhythm with frequent PACs. Labs are stable. ASSESSMENT/PLAN: 1. ATRIAL FIBRILLATION W/ RVR - Now NSR with frequent PACs. Will need full anticoagulation when okay with Pulmonology and Oncology. Continues to take short acting calcium channel caleb. When he can take medications by mouth, will transition to long-acting agent. 2. ACUTE BRONCHITIS - He is being treated with antibiotics and steroids. 3. SQUAMOUS CELL CARCINOMA OF LUNG - Dr. Naqvi and Dr. Elliott addressing. 4. RESPIRATORY ARREST - Currently intubated. Continue current plan of care. 5. FORMER TOBACCO ABUSE - History of 20 years smoking, reportedly quit approximately 12 years ago. 6. HYPERTENSION - Better controlled overnight with increased dose of betablocker. 7. ACUTE RENAL INSUFFICIENCY - STAGE II. Continue to monitor creatinine daily. Exam (Progress Note) - Constitutional Vitals: Period Temp Pulse Resp BP Sys/Srivastava Pulse Ox Last 24 Hr 96.7 F-98.0 F 54-89 10-23 82-131/47-88 90-100 Exam: General: [Appears well with no apparent distress.] [Cooperative. ] [Appears comfortable.] HEENT: [Bilateral arcus noted. Normocephalic, atraumatic. Mucous membranes moist. No jaundice noted. Conjunctiva moist and clear, sclerae anicteric] Neck: No obvious JVD/HJR, no thyromegaly. No carotid bruit appreciated Cardiac: [Regular rate and rhythm.] [No obvious murmur rub or gallop.] Lungs: [Rhonchi noted throughout both lung alan. Intubated with symmetrical chest wall movements. Abdomen: Soft, bowel sounds normoactive. Nontender and nondistended. No abdominal bruit or thrill noted. No masses noted. Musculoskeletal: No fluid collection. Decreased range of motion is noted. Extremities: No clubbing, cyanosis noted. [Hand edema noted bilaterally.] Upper extremity pulses 2+. Lower extremity pulses 2+. Capillary refill less than 3 seconds. Skin: No unusual lesions or rashes. No skin breakdown appreciated. Neuro: Moves all extremities well without hemiparesis or paralysis. Waking and following commands. No essential tremor is appreciated. Result/EKG - Labs CBC & BMP: 05/02/17 05:20 05/02/17 05:20 Lab Results: I have reviewed the past 24 hour labs Labs: Laboratory Results - last 24 hr 05/01/17 05/01/17 05/01/17 11:33 16:10 19:44 WBC RBC Hgb Hct MCV MCH MCHC RDW Plt Count MPV Neut % (Auto) Lymph % (Auto) [place] % (Auto) Eos % (Auto) Baso % (Auto) Neut # (Auto) Lymph # (Auto) [place] # (Auto) Eos # (Auto) Baso # (Auto) Total Counted Immature Gran % Nucleated RBC % Immature Gran # Segmented Neutrophils Band Neutrophils Lymphocytes Monocytes Nucleated RBCs # Hypochromasia ABG pH ABG pCO2 ABG pO2 ABG HCO3 ABG Total CO2 ABG O2 Saturation ABG Base Excess FiO2 Sodium Potassium Chloride Carbon Dioxide Anion Gap BUN Creatinine GFR Calculation BUN/Creatinine Ratio Glucose POC Glucose 217 H 142 H 153 H Calculated Osmolality Calcium Magnesium Theophylline 05/02/17 05/02/17 05/02/17 05:20 05:20 05:20 WBC 11.1 RBC 3.60 L Hgb 10.3 L Hct 31.2 L MCV 86.7 L MCH 29 MCHC 33.0 RDW 13.7 Plt Count 133 MPV 10.7 Neut % (Auto) 89.0 H Lymph % (Auto) 4.6 L [place] % (Auto) 5.4 Eos % (Auto) 0.0 Baso % (Auto) 0.0 Neut # (Auto) 9.8 H Lymph # (Auto) 0.5 L [place] # (Auto) 0.6 Eos # (Auto) 0.0 Baso # (Auto) 0.0 Total Counted 100 Immature Gran % 1.0 Nucleated RBC % 0.0 Immature Gran # 0.11 Segmented Neutrophils 88 H Band Neutrophils 3 Lymphocytes 6 L Monocytes 3 Nucleated RBCs # 0.00 Hypochromasia Slight ABG pH ABG pCO2 ABG pO2 ABG HCO3 ABG Total CO2 ABG O2 Saturation ABG Base Excess FiO2 Sodium 141 Potassium 4.1 Chloride 101 Carbon Dioxide 30 Anion Gap 14.1 BUN 59 H Creatinine 1.90 H GFR Calculation 45 BUN/Creatinine Ratio 31.00 H Glucose 199 H POC Glucose Calculated Osmolality 303.3 Calcium 7.9 L Magnesium 2.4 Theophylline 8.9 L 05/02/17 05/02/17 07:46 08:27 WBC RBC Hgb Hct MCV MCH MCHC RDW Plt Count MPV Neut % (Auto) Lymph % (Auto) [place] % (Auto) Eos % (Auto) Baso % (Auto) Neut # (Auto) Lymph # (Auto) [place] # (Auto) Eos # (Auto) Baso # (Auto) Total Counted Immature Gran % Nucleated RBC % Immature Gran # Segmented Neutrophils Band Neutrophils Lymphocytes Monocytes Nucleated RBCs # Hypochromasia ABG pH 7.381 ABG pCO2 51.3 H ABG pO2 68.8 L ABG HCO3 28.1 H ABG Total CO2 27.3 H ABG O2 Saturation 92.8 L ABG Base Excess 4.3 H FiO2 28.00 Sodium Potassium Chloride Carbon Dioxide Anion Gap BUN Creatinine GFR Calculation BUN/Creatinine Ratio Glucose POC Glucose 225 H Calculated Osmolality Calcium Magnesium Theophylline - Diagnostic Findings Procedure: Chest x-ray: report reviewed by me - EKG EKG results: interpreted by me EKG shows: sinus rhythm, atrial fibrillation
--- NOTE | 2017-05-02 10:47 | XRay Report ---
History: Patient on ventilator Date: 05/02/2017 Study: Chest x-ray AP portable Comparison exam: 05/01/2017 The endotracheal and nasogastric tubes remain in place. The cardiomediastinal silhouette is unchanged. Postsurgical changes of the bony right thorax and rib cage are noted as before. There is chronic parenchymal pleural disease in the right hemithorax with volume loss as before. There is some mild residual hazy density in the left lower lung which may represent a combination of mild atelectasis/infiltrate and mild layering pleural effusion. There is improved aeration in the left lung base. There is no new or worsening process. Otherwise unchanged. Impression: Mildly improved aeration left lung base. Otherwise unchanged PROCEDURE INTERPRETED AT [facility] DEPARTMENT OF RADIOLOGY Final Report Signed by: Dr. Conchita Argueta
--- NOTE | 2017-05-02 10:55 | Physician Query Form ---
CLICK EDIT DOCUMENT TO SELECT QUERY ANSWER --> OK --> SIGN Kelly Vance RN, CCDS Certified Clinical Conveyor Loader W) [phone] (f) [phone] [email or web address] PROVIDERS: Make your selection(s) from the choices in EACH section by typing an "x" and enter comments in the comment section. Please use your independent medical judgment in providing your response. This request does not imply that any particular answer is desired or expected. CLINICAL INDICATORS: (Providers should not edit this section) The medical record indicates that the patient was admitted with a Lung Mass, later found to have Pneumonia, "Bronchoscopy washings are growing Pseudomonas and Stenotrophomonas maltophilia" and the patient was placed on "Levaquin and Fortaz". Community Acquired and Healthcare Acquired are both unspecified terms and require further specificity. Based on the above, could you please clarify further specificity regarding the type of pneumonia you are treating (even if specific organism may not be known) ? ( ) Aspiration pneumonia ( ) Gram negative pneumonia ( ) Gram positive pneumonia ( x) Bacterial pneumonia due to, please specify organism (if known): Pseudomonas and Stenotrophomonas maltophilia ( ) Pneumonia with Influenza ( ) Viral pneumonia ( ) Post procedural ( ) HIV associated pneumonia ( ) Radiation Pneumonitis ( ) Pneumonia due to, please specify: ( ) Clinically unable to determine ( ) Other, please specify: COMMENTS: PLEASE ALSO DOCUMENT RESPONSE IN PROGRESS NOTES AND/OR DISCHARGE SUMMARY Use of terms such as suspected, likely, or probable (associated with a specific diagnosis that is being evaluated, monitored, or treated as if it exists) are acceptable and can be restated in the discharge summary if not ruled out. MTDD
--- NOTE | 2017-05-02 12:36 | Hospitalist Progress Note ---
Assessment and Plan - Time spent with patient Time spent with patient: Greater than 30 minutes (1) Atrial fibrillation with RVR Status: Resolved Assessment and plan: Rate controlled now. continue current treatment plan. Current Visit: Yes (2) Hypertension Status: Chronic Current Visit: Yes (3) Squamous cell carcinoma of left lung Status: Acute Assessment and plan: Hem/onc f/u. Current Visit: Yes (4) Respiratory failure Status: Acute Assessment and plan: Improving. Extubated this am. Continue oxygen and NEB. Pulm f/u. Current Visit: Yes (5) COPD (chronic obstructive pulmonary disease) Status: Acute Assessment and plan: Continue current treatment plan. Current Visit: Yes Hospitalist: Subjective Interval history: No overnight acute event. Shake hands with me this morning. Awake and alert. But still feeling weak. No fever, headache, chest pain or abdominal pain reported. Exam - Constitutional Vitals: Period Temp Pulse Resp BP Sys/Srivastava Pulse Ox Last 24 Hr 96.7 F-98.0 F 54-89 10-23 83-131/47-88 90-100 Exam: GENERAL: Lying in bed. On oxygen. Awake and alert. HEENT: Pupils equally round and reactive to light, conjunctivae clear. TMs de la cruz and translucent. Normal lips, teeth and gums. NECK: Supple without mass. HEART: RRR, no murmur. CHEST: Normal shape, Fair air movement. CV: irregularly irregular., no murmurs, 2+ peripheral pulses LUNGS: Decreased breath sound at b/l lower lobes. ABDOMEN: Soft, nontender, and no hepatosplenomegaly. SKIN: No rash or edema. Pale. LYMPH: No anterior or posterior cervical, or supraclavicular lymphadenopathy. NEURO: No gross motor deficits noted. Results - Labs CBC & BMP: 05/02/17 05:20 05/02/17 05:20
[2017-05-02] MEDS: LEVOFLOXACIN 500 MG TABLET PO SCH (17:03)
[2017-05-02] MEDS: AMINOPHYLLINE 500 MG in SODIUM CHLORIDE 0.9% 480 ML IV SCH (17:45)
[2017-05-02] MEDS: HYDROcodone/CHLORPHENIRAMINE ER 5 ML UDCUP PO SCH (20:08)
[2017-05-02] MEDS: CETIRIZINE 10 MG TABLET PO SCH (20:09)
[2017-05-03] MEDS: CLORAZEPATE 7.5 MG TABLET PO PRN (00:10)
[2017-05-03] MEDS: ALBUTEROL/IPRATROPIUM 3 ML NEB RESP TX SCH ×5 (00:40→23:28)
[2017-05-03 05:15] LABS: Basophils % 0.1 % (0.0-0.8); Hematocrit 32.1 VOL% (42.0-52.0); Hemoglobin 10.5 GM/DL (14.0-18.0); Immature Granulocytes % 1.3 %; Immature Granulocytes Absolute 0.19 #; Lymphocytes # 0.6 10*3/uL (1.4-4.0); Lymphocytes % 4.1 % (21.2-54.2); Mean Corpuscular HGB Conc 32.7 GM/DL (32-36); Mean Corpuscular Hemoglobin 29 PG (27-34); Mean Corpuscular Volume 87.5 FL (87-102); Mean Platelet Volume 10.3 FL (9.6-12.0); Monocytes # 0.9 10*3/uL (0.11-0.8); Monocytes % 6.2 % (1.7-12.7); NRBC # 0.02 10*3/uL; Neutrophils # 13.2 10*3/uL (1.4-7.4); Neutrophils % 88.3 % (38.7-73.9); Platelet Count 158 T/CUMM (130-400); Red Blood Count 3.67 MC/CUMM (3.8-5.5); Red Cell Distribution Width 13.7 % (9.3-17.3)
[2017-05-03 05:52] LABS: Calcium 7.9 MG/DL (8.5-10.1); Magnesium 2.6 MG/DL (1.8-2.4); Osmolality,Calculated 299.3 MOS/KG (273-304); Potassium 4.6 MMOL/L (3.5-5.1)
[2017-05-03 05:58] LABS: Lymphocytes 5 % (20-55); Nucleated Red Blood Cells 1 (0-5); Platelet Estimate Normal; Segmented Neutrophils 86 % (50-85); Total Cells Counted 100
[2017-05-03 05:59] LABS: Hypochromasia 1+; Ovalocytes Slight
[2017-05-03] MEDS: methylPREDNISolone SOD SUC 125 MG/2 ML VIAL IV SCH ×2 (06:15→17:40)
[2017-05-03] MEDS: FAMOTIDINE 20 MG/2 ML VIAL IV SCH ×3 (06:29→18:58)
--- NOTE | 2017-05-03 07:36 | Pulmonology Progress Note ---
Pulmonary - PN: Subj Interval history: This 77-year-old man came in with increased shortness of breath. He had a CT at [facility] about 2 weeks ago showing some mediastinal mass with partial extrinsic compression of left main bronchus. He is in now with cough congestion and increased shortness of breath. He underwent fiberoptic bronchoscopy this morning. He has tumor compressing the left main bronchus but there did appear to be an element of it involving the mucosa. Biopsies were taken and should give us an answer. His left main bronchus is not obstructed enough to require a stent. Likely would need combination of radiation and chemotherapy depending on cell type. We are waiting on retrieval of old records from 30 years ago when he had surgery on his right long and a thoracoplasty. He had TB at that time. 04/25/2017 patient had episodes of tachyarrhythmia during the night. He had a carotid massage and some IV medications per hospitalist service. This morning it appears that he has atrial flutter with 2-1 block and heart rate around 150. He does not seem real symptomatic. He is alert. Yesterday his ABG showed CO2 retention when he was on 4 L of oxygen. We have reduced the oxygen. Have not repeated the ABGs. Pathology from biopsy done yesterday should be out tomorrow. 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 He had a decortication done by Dr. Matos. He had full treatment for TB and was cured. This accounts for his abnormal x-ray on the right side. He did have a thoracoplasty at that time as well. At this point we need cardiology to help with his tachyarrhythmia, and we await his pathology report. Shortly will not be a surgical candidate by the location of the tumor and physiologically. 04/26/17 pathology has come back showing squamous cell lung cancer. This partially obstructs his left main bronchus and involves the mediastinum. Not a candidate for surgery. Probably radiation and/or chemotherapy. Need oncology to see. Findings were discussed with the patient and his family. I Would be in favor of treatment as soon as can be done. 04/29/2017 patient became more sluggish in the day on Saturday and had an elevated PCO2 requiring intubation this time. He has been on the ventilator now weekend. His chest x-ray looks fairly good. 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 Did not tolerate CPAP yesterday. He is on a sodium acetate infusion, and he has a metabolic alkalosis. We will stop that and start him on Diamox. Need to wean him with his PO2 around 60 so we will have problems with retaining if possible. We will also place on Aminophyllin. 04/30/2017 patient tolerated some CPAP yesterday. No ABGs this morning. Chest x- ray shows a little infiltrate at the left base. Probably needs diuresing a little further. Hopefully Diamox will help with that. 05/01/2017 patient did not tolerate CPAP yesterday. He is on propofol. We need to get him off that and try Precedex. He had apnea during CPAP trials. He has elevated PCO2 which we are trying to correct with Diamox. Hopefully can proceed with CPAP. 05/02/2017 patient is tolerating CPAP much better. Fall has been stopped. Patient is alert and calm at present. ABGs acceptable. Will try to get extubated today. Will need BiPAP postextubation at least at night. 05/03/2017 patient was able to be extubated yesterday. He is alert and oriented this morning. He does have an elevated PCO2. We need to keep his FiO2 low. Prefer an oxygen saturation of around 88-92% on him. Use BiPAP at night. Should be able to move to the floor today. Oncology can begin evaluation for treatment. Patient does need some physical therapy as well. Exam (Progress Note) - Constitutional Vitals: Period Temp Pulse Resp BP Sys/Srivastava Pulse Ox Last 24 Hr 96.7 F-98.9 F 60-113 12-26 106-183/45-101 93-99 Exam: Patient is alert, calm, and responds to questions. Currently on 2 L nasal biprong. Oxygen saturation measuring 97-98%. Pupils react to light. Neck supple no bruits. Chest reveals some rhonchi bilaterally. Heart irregular without murmurs. Abdomen soft nontender no masses. Extremities no clubbing cyanosis edema. Results - Labs CBC & BMP: 05/03/17 04:53 05/03/17 04:53 Lab Results: I have reviewed the past 24 hour labs Assessment and Plan (1) Acute bronchitis Status: Acute Assessment and plan: He does have a cough and sputum production and rhonchi. We will treat him with antibiotics and steroids. Need to get cultures. Probably has some bronchopneumonia as well. 04/24/2017 being treated with antibiotics and steroids for acute bronchitis. 04/25/2017 continuing antibiotics and steroids. 04/26/17 this is better with steroids and antibiotics. These can be stopped in a couple of days. 04/29/2017 continuing antibiotics and steroids empirically. 04/30/2017 continuing antibiotics bronchodilator steroids. 05/01/2017 continuing empiric antibiotics and steroids. Also bronchodilators 05/02/2017 no bronchospasm. 05/03/2017 no wheezes. Bronchitis improved. Current Visit: Yes (2) Abnormal CT scan, chest Status: Acute Assessment and plan: I have not been able to pull up the CT to review but reading the reports it indicates that he has some mediastinal adenopathy. I will plan bronchoscopy in the morning. Hopefully I will be able to review the films prior to that. he does have a remote history of some form of some form of tuberculosis. 04/24/2017 was able to review the CT and he has fairly large mass in the mediastinum/left hilum with compression of left main bronchus. He has had bronchoscopy this morning with biopsies. Await pathology from that. 04/25/2017 mass with partial obstruction of left main bronchus. 05/01/[address] scan due to squamous cell carcinoma with partial obstruction of left main bronchus. Current Visit: Yes (3) Atrial fibrillation with RVR Status: Resolved Assessment and plan: Rate is controlled. 04/24/2017. On the monitor during his bronchoscopy it is apparent that he has multifocal atrial tachycardia rather than atrial fibrillation at the present time. 04/25/2017 atrial flutter with RVR this morning. Cardiology to see 04/26/17 heart rate is now in the 100-110 range. Still has atrial flutter. Cardiology following. I am concerned about possible metastatic disease given that he has cancer in the left mediastinal/hilar area. 04/30/2017 sinus rhythm with PACs. 05/02/2017 rate is controlled Current Visit: Yes (4) Hilar lymphadenopathy Status: Acute Assessment and plan: Could be results of previous TB or he could have a malignancy. Plan to do bronchoscopy in the morning and see if anything is visible there. Also will get cultures for Mycobacterium and bacterial causes of this 04/24/2017 this is likely to be a primary malignancy. Biopsies are pending. See bronchoscopy report 04/25/2017 likely to be bronchogenic carcinoma. Pathology reported pending Current Visit: Yes (5) Squamous cell carcinoma of left lung Status: Acute Assessment and plan: Pathology has come back showing squamous cell cancer. It involves the left main bronchus. Involves the mediastinum and left hilum. Not candidate for surgery. Oncology to see. I would favor early radiation since he has partial obstruction of the left main bronchus. It is not severe enough obstruction to consider stenting. 04/29/2017 will need oncology to see. This was partially obstructing left mainstem bronchus but I do not think it caused his respiratory failure acutely. 04/30/2017 squamous cell carcinoma of left lung with mediastinal involvement. If we can get him tuned up enough to tolerate it he will be considered for chemotherapy and radiation. Prognosis guarded 05/01/2017 this will require treatment with radiation/chemotherapy once were able to liberate him from the ventilator. Prognosis not good. 05/02/2017 biopsy-proven squamous cell carcinoma left main bronchus. Has mediastinal and left hilar mass with adenopathy. Hopefully can tune him up where he can get radiation or chemotherapy or both. 05/03/2017 squamous cell lung cancer left main bronchus with mediastinal and left hilar metastasis. Patient's functional status is marginal for treatment. Hopefully we can improve this getting him upstairs starting physical therapy. Dr. Elliott is following from oncology standpoint. Current Visit: Yes (6) COPD (chronic obstructive pulmonary disease) Status: Acute Assessment and plan: Continuing bronchodilators and steroids as well as empiric antibiotics. He is a CO2 retainer. 04/30/2017 using Diamox to reduce his PCO2. 05/01/2017 he has CO2 retention due to his COPD. This is making weaning difficult. We need to keep his sedation to a minimum. 05/02/2017 continuing bronchodilators. Likely will need BiPAP once he is extubated. 05/03/2017 patient has been extubated. Continuing bronchodilators. Low-dose steroids. BiPAP at night. He is a CO2 retainer and we need to keep his O2 sats in the 88-92% range. Current Visit: Yes (7) Respiratory failure Status: Acute Assessment and plan: ABG showed marked CO2 retention. Will use Diamox. Will start Aminophyllin. Will need to keep his PO2 around 60 in order to wean adequately. 04/30/2017 he was a retainer prior to acute respiratory failure. Need to keep PO2 relatively low. It was 63 yesterday afternoon. ABGs pending today. 05/01/2017 he has hypercarbic respiratory failure. We have started Aminophyllin and Diamox. 05/02/2017 hypercarbic respiratory failure. Aminophyllin and Diamox have helped. PCO2 is lower. He is alert and calm. Hopefully can get extubated today 05/03/2017 we have been able extubating. Still has some hypercarbia. Keep Aminophyllin infusion for another day and then change to oral theophylline. Low -dose Diamox. Current Visit: Yes
[2017-05-03] MEDS: INSULIN LISPRO 100 UNIT/ML SUBCUT SCH ×4 (08:13→21:30)
[2017-05-03] MEDS: DILTIAZEM 60 MG TABLET PO SCH (10:02)
[2017-05-03] MEDS: ENOXAPARIN 40 MG/0.4 ML SYRINGE SUBCUT SCH (10:02)
[2017-05-03] MEDS: METOPROLOL TARTRATE 50 MG TABLET PO SCH ×2 (10:03→21:29)
[2017-05-03] MEDS: AMINOPHYLLINE 500 MG in SODIUM CHLORIDE 0.9% 480 ML IV SCH (11:28)
--- NOTE | 2017-05-03 11:47 | Cardiology Progress Note ---
Assessment and Plan - Time spent with patient Time spent with patient: Greater than 30 minutes (1) Atrial fibrillation with RVR Status: Resolved Assessment and plan: SEE PLAN OF CARE LISTED BELOW Current Visit: Yes (2) Acute bronchitis Status: Acute Assessment and plan: SEE PLAN OF CARE LISTED BELOW Current Visit: Yes (3) Former tobacco use Status: Resolved Assessment and plan: SEE PLAN OF CARE LISTED BELOW Current Visit: Yes (4) Hypertension Status: Chronic Assessment and plan: SEE PLAN OF CARE LISTED BELOW Current Visit: Yes (5) Squamous cell carcinoma of left lung Status: Acute Assessment and plan: SEE PLAN OF CARE LISTED BELOW Current Visit: Yes (6) Respiratory failure Status: Acute Assessment and plan: SEE PLAN OF CARE LISTED BELOW Current Visit: Yes Cardiology - PN: Subj Interval history: TANKAGE GRINDER: DR. LOREDO SUMMARY: Mr. Dodge, 77BM, with no prior history of cardiac disease, presented to the emergency department at [facility] April 23, 2017 with complaints of worsening shortness of breath. He was initially seen at [facility] but transferred to our facility for pulmonary consultation. CT Chest at [place] revealed abnormal results concerning for neoplastic adenopathy. Dr. Naqvi and Dr. Elliott are now following. Pathology has returned revealing squamous cell lung cancer. This partially obstructs his left main bronchus and involves the mediastinum. He is not a candidate for surgery. He was also found to be in atrial fibrillation with rapid ventricular response. Cardizem was initiated in the emergency department. April 26, 2017, patient experienced respiratory arrest. Since that time, he converted to normal sinus rhythm. Echocardiogram April 25, 2017 reveals the following: EF 60% , no significant valvular abnormality. RVSP 52 mmHg. APRIL 29, 2017: Remains intubated at this time. Hopefully, patient will be extubated soon. For the past 24 hours, blood pressure has been elevated, systolic blood pressure averaging 140s-170s. He is having frequent PVCs, unifocal. Also, one episode of a second-degree AV block type I. He is currently maintained on Diltiazem 30 mg per NGT QID, Metoprolol tartrate 50 mg per NGT BID. I will increase his diltiazem to 60 mg QID with hold parameters. He is also receiving low-dose Lovenox and, if no invasive procedures to be performed, will need full anticoagulation. He is at high risk of significant bleeding given his squamous cell carcinoma of the lung. I will further discuss with Dr. Crawley and await additional recommendations. APRIL 30, 2017: Little change overnight. Patient did undergo some CPAP trials yesterday and tolerated fairly well. Chest x-ray reveals an infiltrate at the left base, small. Diamox has been added to help with diuresis. Vital signs have remained stable. Hopefully, we can start formal anticoagulation soon. He continues with IV Aminophylline, Propofol. MAY 01, 2017: Patient remains intubated this morning. He did not tolerate CPAP trials yesterday, having apneic spells with his trials. He is waking and following commands. Patient's PCO2 remains elevated, no improvement overnight. Diamox continues in an effort to decrease PCO2. Creatinine has increased from 1.4-1.8 overnight. Patient continues to have frequent PACs, often in a bigeminal pattern. No recurrence of atrial fibrillation is noted per telemetry since April 26, 2017. Vital signs are stable. MAY 02, 2017: Patient may be extubated today. He is awake, following commands and improving each day. He continues to require Aminophyllin IV. During CPAP trials this morning, patient has had intermittent atrial flutter. Originally, were consulted for atrial flutter but he has remained in sinus rhythm until this morning. At present, he is in normal sinus rhythm with frequent PACs. Labs are stable. MAY 03, 2017: Patient was extubated yesterday and looks great. He denies a prior history of known heart disease including atrial fibrillation. He denies chest pain, heaviness or tightness. He is very pleasant. At this time, he remains in normal sinus rhythm. He is tolerating metoprolol and calcium channel caleb. At this point, I can stop his short acting diltiazem and transition to long-acting calcium channel caleb starting in the morning. Eventually, patient may need formal anticoagulant for stroke prevention. However, at this time I will start a full strength aspirin. He remains in normal sinus rhythm so this is comforting. ASSESSMENT/PLAN: 1. ATRIAL FIBRILLATION W/ RVR - Now NSR with frequent PACs. Will need full anticoagulation when okay with Pulmonology and Oncology. Adding aspirin daily. Continue short acting calcium channel caleb tonight and transition to long-acting beginning in the morning. 2. ACUTE BRONCHITIS - He is being treated with antibiotics and steroids. 3. SQUAMOUS CELL CARCINOMA OF LUNG - Dr. Naqvi and Dr. Elliott addressing. Plan of treatment to be discussed now that patient is extubated. 4. RESPIRATORY ARREST - Now extubated. SPOs 91%. (Prefer 88-92% per pulmonology). Use Bi-Pap at night. 5. FORMER TOBACCO ABUSE - History of 20 years smoking, reportedly quit approximately 12 years ago. 6. HYPERTENSION - adequately controlled. 7. ACUTE RENAL INSUFFICIENCY - STAGE II. Creatinine improved overnight. Avoiding KATHRYN for fear of worsening creatinine at this time, also favor rate controlling agents. Continue to monitor creatinine daily. Exam (Progress Note) - Constitutional Vitals: Period Temp Pulse Resp BP Sys/Srivastava Pulse Ox Last 24 Hr 96.7 F-98.9 F 60-113 14-26 106-183/45-101 93-99 Exam: General: [Appears well with no apparent distress.] [Cooperative. ] [Appears comfortable.] Extubated. HEENT: [Bilateral arcus noted. Normocephalic, atraumatic. Mucous membranes moist. No jaundice noted. Conjunctiva moist and clear, sclerae anicteric] Neck: No obvious JVD/HJR, no thyromegaly. No carotid bruit appreciated Cardiac: [Regular rate and rhythm.] [No obvious murmur rub or gallop.] Lungs: [Rhonchi noted throughout both lung alan. Symmetrical chest wall movements. Abdomen: Soft, bowel sounds normoactive. Nontender and nondistended. No abdominal bruit or thrill noted. No masses noted. Musculoskeletal: No fluid collection. Decreased range of motion is noted. Extremities: No clubbing, cyanosis noted. [Hand edema noted bilaterally.] Upper extremity pulses 2+. Lower extremity pulses 2+. Capillary refill less than 3 seconds. Skin: No unusual lesions or rashes. No skin breakdown appreciated. Neuro: Moves all extremities well without hemiparesis or paralysis. Waking and following commands. No essential tremor is appreciated. Result/EKG - Labs CBC & BMP: 05/03/17 04:53 05/03/17 04:53 Lab Results: I have reviewed the past 24 hour labs Labs: Laboratory Results - last 24 hr 05/02/17 05/02/17 05/03/17 16:29 19:29 04:53 WBC 15.0 H D RBC 3.67 L Hgb 10.5 L Hct 32.1 L MCV 87.5 MCH 29 MCHC 32.7 RDW 13.7 Plt Count 158 MPV 10.3 Neut % (Auto) 88.3 H Lymph % (Auto) 4.1 L [place] % (Auto) 6.2 Eos % (Auto) 0.0 Baso % (Auto) 0.1 Neut # (Auto) 13.2 H Lymph # (Auto) 0.6 L [place] # (Auto) 0.9 H Eos # (Auto) 0.0 Baso # (Auto) 0.0 Total Counted 100 Immature Gran % 1.3 Nucleated RBC % 0.1 Immature Gran # 0.19 Segmented Neutrophils 86 H Lymphocytes 5 L Monocytes 9 Nucleated RBCs 1 Nucleated RBCs # 0.02 Platelet Estimate Normal Hypochromasia 1+ Ovalocytes Slight Sodium Potassium Chloride Carbon Dioxide Anion Gap BUN Creatinine GFR Calculation BUN/Creatinine Ratio Glucose POC Glucose 179 H 153 H Calculated Osmolality Calcium Magnesium 05/03/17 05/03/17 05/03/17 04:53 07:35 11:06 WBC RBC Hgb Hct MCV MCH MCHC RDW Plt Count MPV Neut % (Auto) Lymph % (Auto) [place] % (Auto) Eos % (Auto) Baso % (Auto) Neut # (Auto) Lymph # (Auto) [place] # (Auto) Eos # (Auto) Baso # (Auto) Total Counted Immature Gran % Nucleated RBC % Immature Gran # Segmented Neutrophils Lymphocytes Monocytes Nucleated RBCs Nucleated RBCs # Platelet Estimate Hypochromasia Ovalocytes Sodium 141 Potassium 4.6 Chloride 101 Carbon Dioxide 33 H Anion Gap 11.6 BUN 57 H Creatinine 1.60 H GFR Calculation 56 BUN/Creatinine Ratio 35.00 H Glucose 148 H POC Glucose 148 H 183 H Calculated Osmolality 299.3 Calcium 7.9 L Magnesium 2.6 H - Diagnostic Findings Procedure: Chest x-ray: report reviewed by me - EKG EKG results: interpreted by me EKG shows: sinus rhythm
[2017-05-03] MEDS: ASPIRIN EC 325 MG TABLET PO SCH (13:18)
--- NOTE | 2017-05-03 14:22 | Hospitalist Progress Note ---
Assessment and Plan - Time spent with patient Time spent with patient: Greater than 30 minutes (1) Atrial fibrillation with RVR Status: Resolved Assessment and plan: Rate controlled now. continue current treatment plan. Current Visit: Yes (2) Hypertension Status: Chronic Current Visit: Yes (3) Squamous cell carcinoma of left lung Status: Acute Assessment and plan: Hem/onc f/u. Current Visit: Yes (4) Respiratory failure Status: Acute Assessment and plan: Resp status stable. On oxygen by NC. Stable to be transferred to floor with monitored bed today. Current Visit: Yes (5) COPD (chronic obstructive pulmonary disease) Status: Acute Assessment and plan: Continue current treatment plan. Current Visit: Yes Hospitalist: Subjective Interval history: 05/03/17: Mental status continues to improve. Can shake hands. No overnight acute event. Comfortable while on oxygen by NC. No fever, headache, chest pain or abdominal pain reported. 05/02/17: No overnight acute event. Shake hands with me this morning. Awake and alert. But still feeling weak. No fever, headache, chest pain or abdominal pain reported. Interval history: 77 yo male with SSC of the left mainstem bronchus admitted with shortness of breath and found to have hypercapneic respiratory failure. Of note, he has a history of Tuberculosis with pulmonary scarring requiring partial lung resection. Bronchial washings and sputum culture with Stenotrophomonas and Pseudomonas respectively. Currently on Levofloxacin. Attempting to wean from the vent but not tolerating trials currently. Continuing with Diamox for diuresis given concern for slight pulmonary edema type pattern. Cardiology following as well. Exam - Constitutional Vitals: Period Temp Pulse Resp BP Sys/Srivastava Pulse Ox Last 24 Hr 96.7 F-97.8 F 60-113 14-26 110-183/45-101 93-100 Exam: GENERAL: Lying in bed supine. On oxygen by NC. Awake and alert. HEENT: Pupils equally round and reactive to light, conjunctivae clear. TMs de la cruz and translucent. Normal lips, teeth and gums. NECK: Supple without mass. HEART: RRR, no murmur. CHEST: Normal shape, Fair air movement. CV: irregularly irregular., no murmurs, 2+ peripheral pulses LUNGS: Decreased breath sound at b/l lower lobes. ABDOMEN: Soft, nontender, and no hepatosplenomegaly. SKIN: No rash or edema. Pale. LYMPH: No anterior or posterior cervical, or supraclavicular lymphadenopathy. NEURO: No gross motor deficits noted. Results - Labs CBC & BMP: 05/03/17 04:53 05/03/17 04:53
[2017-05-03] MEDS: LEVOFLOXACIN 500 MG TABLET PO SCH (17:46)
[2017-05-03] MEDS: CETIRIZINE 10 MG TABLET PO SCH (21:29)
[2017-05-03] MEDS: HYDROcodone/CHLORPHENIRAMINE ER 5 ML UDCUP PO SCH (21:29)
[2017-05-04] MEDS: methylPREDNISolone SOD SUC 125 MG/2 ML VIAL IV SCH ×2 (04:29→17:16)
[2017-05-04 06:24] LABS: Basophils % 0.1 % (0.0-0.8); Hematocrit 36.5 VOL% (42.0-52.0); Hemoglobin 11.4 GM/DL (14.0-18.0); Immature Granulocytes % 2.1 %; Immature Granulocytes Absolute 0.34 #; Lymphocytes # 0.5 10*3/uL (1.4-4.0); Lymphocytes % 2.9 % (21.2-54.2); Mean Corpuscular HGB Conc 31.2 GM/DL (32-36); Mean Corpuscular Hemoglobin 28 PG (27-34); Mean Corpuscular Volume 90.3 FL (87-102); Mean Platelet Volume 10.4 FL (9.6-12.0); Monocytes # 0.9 10*3/uL (0.11-0.8); Monocytes % 5.4 % (1.7-12.7); Neutrophils # 14.2 10*3/uL (1.4-7.4); Neutrophils % 89.5 % (38.7-73.9); Platelet Count 183 T/CUMM (130-400); Red Blood Count 4.04 MC/CUMM (3.8-5.5); Red Cell Distribution Width 14.4 % (9.3-17.3); White Blood Count 15.8 T/CUMM (4-12)
[2017-05-04] MEDS: FAMOTIDINE 20 MG/2 ML VIAL IV SCH ×2 (06:50→22:03)
[2017-05-04 07:13] LABS: Calcium 8.4 MG/DL (8.5-10.1); Magnesium 2.6 MG/DL (1.8-2.4)
[2017-05-04 07:26] LABS: Band Neutrophils 2 % (0-10); Hypochromasia Slight; Lymphocytes 6 % (20-55); Microcytosis Slight; Platelet Estimate Adequate; Segmented Neutrophils 88 % (50-85); Total Cells Counted 100
[2017-05-04] MEDS: ALBUTEROL/IPRATROPIUM 3 ML NEB RESP TX SCH ×3 (07:57→20:12)
[2017-05-04] MEDS: INSULIN LISPRO 100 UNIT/ML SUBCUT SCH ×4 (09:03→20:39)
--- NOTE | 2017-05-04 09:04 | EKG Report ---
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
[2017-05-04] MEDS: DILTIAZEM CD 240 MG CAPSULE PO SCH (09:10)
[2017-05-04] MEDS: ASPIRIN EC 325 MG TABLET PO SCH (09:10)
[2017-05-04] MEDS: METOPROLOL TARTRATE 50 MG TABLET PO SCH (09:11)
[2017-05-04] MEDS: THEOPHYLLINE ER (24 HR) 300 MG CAPSULE PO SCH (09:11)
[2017-05-04] MEDS: ENOXAPARIN 40 MG/0.4 ML SYRINGE SUBCUT SCH (09:11)
--- NOTE | 2017-05-04 10:51 | Pulmonology Progress Note ---
Pulmonary - PN: Subj Interval history: This 77-year-old man came in with increased shortness of breath. He had a CT at [facility] about 2 weeks ago showing some mediastinal mass with partial extrinsic compression of left main bronchus. He is in now with cough congestion and increased shortness of breath. He underwent fiberoptic bronchoscopy this morning. He has tumor compressing the left main bronchus but there did appear to be an element of it involving the mucosa. Biopsies were taken and should give us an answer. His left main bronchus is not obstructed enough to require a stent. Likely would need combination of radiation and chemotherapy depending on cell type. We are waiting on retrieval of old records from 30 years ago when he had surgery on his right long and a thoracoplasty. He had TB at that time. 04/25/2017 patient had episodes of tachyarrhythmia during the night. He had a carotid massage and some IV medications per hospitalist service. This morning it appears that he has atrial flutter with 2-1 block and heart rate around 150. He does not seem real symptomatic. He is alert. Yesterday his ABG showed CO2 retention when he was on 4 L of oxygen. We have reduced the oxygen. Have not repeated the ABGs. Pathology from biopsy done yesterday should be out tomorrow. 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 He had a decortication done by Dr. Matos. He had full treatment for TB and was cured. This accounts for his abnormal x-ray on the right side. He did have a thoracoplasty at that time as well. At this point we need cardiology to help with his tachyarrhythmia, and we await his pathology report. Shortly will not be a surgical candidate by the location of the tumor and physiologically. 04/26/17 pathology has come back showing squamous cell lung cancer. This partially obstructs his left main bronchus and involves the mediastinum. Not a candidate for surgery. Probably radiation and/or chemotherapy. Need oncology to see. Findings were discussed with the patient and his family. I Would be in favor of treatment as soon as can be done. 04/29/2017 patient became more sluggish in the day on Saturday and had an elevated PCO2 requiring intubation this time. He has been on the ventilator now weekend. His chest x-ray looks fairly good. 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 Did not tolerate CPAP yesterday. He is on a sodium acetate infusion, and he has a metabolic alkalosis. We will stop that and start him on Diamox. Need to wean him with his PO2 around 60 so we will have problems with retaining if possible. We will also place on Aminophyllin. 04/30/2017 patient tolerated some CPAP yesterday. No ABGs this morning. Chest x- ray shows a little infiltrate at the left base. Probably needs diuresing a little further. Hopefully Diamox will help with that. 05/01/2017 patient did not tolerate CPAP yesterday. He is on propofol. We need to get him off that and try Precedex. He had apnea during CPAP trials. He has elevated PCO2 which we are trying to correct with Diamox. Hopefully can proceed with CPAP. 05/02/2017 patient is tolerating CPAP much better. Fall has been stopped. Patient is alert and calm at present. ABGs acceptable. Will try to get extubated today. Will need BiPAP postextubation at least at night. 05/03/2017 patient was able to be extubated yesterday. He is alert and oriented this morning. He does have an elevated PCO2. We need to keep his FiO2 low. Prefer an oxygen saturation of around 88-92% on him. Use BiPAP at night. Should be able to move to the floor today. Oncology can begin evaluation for treatment. Patient does need some physical therapy as well. 05/04/2017 patient was a little sleepy today. I checked his oxygen and it was set on 3 L. We had ordered 1 L with arrange for her O2 sat 88-92%. O2 sat was 99%. He has CO2 retention and in fact has been ventilated for respiratory failure recently. We need to keep his oxygen saturations in the 88-92% range. Patient remains fairly weak. He has COPD. 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 Discussed this with his daughter in the room. Exam (Progress Note) - Constitutional Vitals: Period Temp Pulse Resp BP Sys/Srivastava Pulse Ox Last 24 Hr 97.3 F-98.6 F 75-131 17-22 131-157/66-92 92-100 Exam: Patient is alert, calm, and responds to questions. Currently on 3 L nasal biprong. Oxygen has been reduced to 1 L. Oxygen saturation measuring 97-98%. Pupils react to light. Neck supple no bruits. Chest reveals some rhonchi bilaterally. Heart irregular without murmurs. Abdomen soft nontender no masses. Extremities no clubbing cyanosis edema. Results - Labs CBC & BMP: 05/04/17 04:38 05/04/17 04:38 Lab Results: I have reviewed the past 24 hour labs Assessment and Plan (1) Acute bronchitis Status: Acute Assessment and plan: He does have a cough and sputum production and rhonchi. We will treat him with antibiotics and steroids. Need to get cultures. Probably has some bronchopneumonia as well. 04/24/2017 being treated with antibiotics and steroids for acute bronchitis. 04/25/2017 continuing antibiotics and steroids. 04/26/17 this is better with steroids and antibiotics. These can be stopped in a couple of days. 04/29/2017 continuing antibiotics and steroids empirically. 04/30/2017 continuing antibiotics bronchodilator steroids. 05/01/2017 continuing empiric antibiotics and steroids. Also bronchodilators 05/02/2017 no bronchospasm. 05/03/2017 no wheezes. Bronchitis improved. 05/04/2017 continuing bronchodilator steroids and antibiotics. Current Visit: Yes (2) Abnormal CT scan, chest Status: Acute Assessment and plan: I have not been able to pull up the CT to review but reading the reports it indicates that he has some mediastinal adenopathy. I will plan bronchoscopy in the morning. Hopefully I will be able to review the films prior to that. he does have a remote history of some form of some form of tuberculosis. 04/24/2017 was able to review the CT and he has fairly large mass in the mediastinum/left hilum with compression of left main bronchus. He has had bronchoscopy this morning with biopsies. Await pathology from that. 04/25/2017 mass with partial obstruction of left main bronchus. 05/01/[address] scan due to squamous cell carcinoma with partial obstruction of left main bronchus. Current Visit: Yes (3) Atrial fibrillation with RVR Status: Resolved Assessment and plan: Rate is controlled. 04/24/2017. On the monitor during his bronchoscopy it is apparent that he has multifocal atrial tachycardia rather than atrial fibrillation at the present time. 04/25/2017 atrial flutter with RVR this morning. Cardiology to see 04/26/17 heart rate is now in the 100-110 range. Still has atrial flutter. Cardiology following. I am concerned about possible metastatic disease given that he has cancer in the left mediastinal/hilar area. 04/30/2017 sinus rhythm with PACs. 05/02/2017 rate is controlled Current Visit: Yes (4) Hilar lymphadenopathy Status: Acute Assessment and plan: Could be results of previous TB or he could have a malignancy. Plan to do bronchoscopy in the morning and see if anything is visible there. Also will get cultures for Mycobacterium and bacterial causes of this 04/24/2017 this is likely to be a primary malignancy. Biopsies are pending. See bronchoscopy report 04/25/2017 likely to be bronchogenic carcinoma. Pathology reported pending Current Visit: Yes (5) Squamous cell carcinoma of left lung Status: Acute Assessment and plan: Pathology has come back showing squamous cell cancer. It involves the left main bronchus. Involves the mediastinum and left hilum. Not candidate for surgery. Oncology to see. I would favor early radiation since he has partial obstruction of the left main bronchus. It is not severe enough obstruction to consider stenting. 04/29/2017 will need oncology to see. This was partially obstructing left mainstem bronchus but I do not think it caused his respiratory failure acutely. 04/30/2017 squamous cell carcinoma of left lung with mediastinal involvement. If we can get him tuned up enough to tolerate it he will be considered for chemotherapy and radiation. Prognosis guarded 05/01/2017 this will require treatment with radiation/chemotherapy once were able to liberate him from the ventilator. Prognosis not good. 05/02/2017 biopsy-proven squamous cell carcinoma left main bronchus. Has mediastinal and left hilar mass with adenopathy. Hopefully can tune him up where he can get radiation or chemotherapy or both. 05/03/2017 squamous cell lung cancer left main bronchus with mediastinal and left hilar metastasis. Patient's functional status is marginal for treatment. Hopefully we can improve this getting him upstairs starting physical therapy. Dr. Elliott is following from oncology standpoint. 05/04/2017 will need chemo and/or radiation once we get him or he can tolerate it. Current Visit: Yes (6) COPD (chronic obstructive pulmonary disease) Status: Acute Assessment and plan: Continuing bronchodilators and steroids as well as empiric antibiotics. He is a CO2 retainer. 04/30/2017 using Diamox to reduce his PCO2. 05/01/2017 he has CO2 retention due to his COPD. This is making weaning difficult. We need to keep his sedation to a minimum. 05/02/2017 continuing bronchodilators. Likely will need BiPAP once he is extubated. 05/03/2017 patient has been extubated. Continuing bronchodilators. Low-dose steroids. BiPAP at night. He is a CO2 retainer and we need to keep his O2 sats in the 88-92% range. 05/04/2017 he is a chronic longer who retains. Must keep his O2 sats in the lower range outlined above. He is getting BiPAP at night. Current Visit: Yes (7) Respiratory failure Status: Acute Assessment and plan: ABG showed marked CO2 retention. Will use Diamox. Will start Aminophyllin. Will need to keep his PO2 around 60 in order to wean adequately. 04/30/2017 he was a retainer prior to acute respiratory failure. Need to keep PO2 relatively low. It was 63 yesterday afternoon. ABGs pending today. 05/01/2017 he has hypercarbic respiratory failure. We have started Aminophyllin and Diamox. 05/02/2017 hypercarbic respiratory failure. Aminophyllin and Diamox have helped. PCO2 is lower. He is alert and calm. Hopefully can get extubated today 05/03/2017 we have been able extubating. Still has some hypercarbia. Keep Aminophyllin infusion for another day and then change to oral theophylline. Low -dose Diamox. Current Visit: Yes
--- NOTE | 2017-05-04 10:57 | Hospitalist Progress Note ---
Assessment and Plan - Time spent with patient Time spent with patient: Greater than 30 minutes (1) Respiratory failure Status: Acute Assessment and plan: Stable since extubation. We will continue to closely monitor. Current Visit: Yes (2) COPD (chronic obstructive pulmonary disease) Status: Acute Assessment and plan: Continue current management. Pulmonary is involved. Current Visit: Yes (3) Atrial fibrillation with RVR Status: Resolved Assessment and plan: Currently sinus tachycardia. Current Visit: Yes (4) Pneumonia Status: Acute Assessment and plan: Continue antibiotics. Current Visit: Yes (5) Squamous cell carcinoma of left lung Status: Acute Assessment and plan: Defer to oncology. Current Visit: Yes Hospitalist: Subjective Interval history: Patient has no complaints currently. He appears comfortable. He was transferred from the intensive care unit where he was admitted for respiratory failure requiring intubation. Sputum cultures are positive and is currently on antibiotics for that. Exam - Constitutional Vitals: Period Temp Pulse Resp BP Sys/Srivastava Pulse Ox Last 24 Hr 97.3 F-98.6 F 75-131 17-22 131-157/66-92 92-100 General appearance: no acute distress - Head Head exam: Present: normocephalic, atraumatic - Eye Eye exam: Present: EOMI Pupils: Present: NAY - ENT ENT exam: Present: normal exam - Neck Neck exam: Present: normal inspection - Respiratory Respiratory exam: Present: other (Coarse breath sounds bilaterally.). Absent: rhonchi, wheezes - Cardiovascular Cardiovascular exam: Present: tachycardia. Absent: gallop, irregular rhythm, rubs, systolic murmur - GI/Abdominal GI/Abdominal exam: Present: normal bowel sounds, soft. Absent: distended, firm , guarding, tenderness, rebound - Extremities Exam Extremities exam: Present: normal inspection. Absent: calf tenderness, edema Results - Labs CBC & BMP: 05/04/17 04:38 05/04/17 04:38 Lab Results: I have reviewed the past 24 hour labs
--- NOTE | 2017-05-04 12:12 | Cardiology Progress Note ---
Assessment and Plan - Time spent with patient Time spent with patient: Greater than 30 minutes (1) Typical atrial flutter Status: Acute Assessment and plan: The patient has had recurrence of his flutter today. He was in sinus rhythm earlier. He appears to have failed rate control medicines We will add sotalol 80 mg p.o. now and twice daily--with hold parameters. Continue Lovenox. Would not switch from Lovenox to full dose Eliquis because he has cancer and he could bleed within those areas. We will continue to monitor I reviewed his labs today. His potassium, magnesium, are okay. We will reassess tomorrow. I conferred care with his nurse, Vicky Current Visit: Yes (2) Abnormal CT scan, chest Status: Acute Current Visit: Yes (3) COPD (chronic obstructive pulmonary disease) Status: Acute Current Visit: Yes (4) Hilar lymphadenopathy Status: Acute Current Visit: Yes (5) Lung cancer Status: Acute Current Visit: Yes (6) Pneumonia Status: Acute Current Visit: Yes (7) Respiratory failure Status: Acute Current Visit: Yes (8) Right lower lobe lung mass Status: Acute Current Visit: Yes (9) Shortness of breath Status: Acute Current Visit: Yes (10) Squamous cell carcinoma of left lung Status: Acute Current Visit: Yes Cardiology - PN: Subj Interval history: No chest pain; less shortness of breath.; He uses CPAP last night. Exam (Progress Note) - Constitutional Vitals: Period Temp Pulse Resp BP Sys/Srivastava Pulse Ox Last 24 Hr 97.6 F-98.6 F 75-131 17-22 131-157/66-92 93-100 Exam: HEENT: Pupils equal, reactive to light and accommodation Neck: NoJVD or bruit Lungs clear to auscultation Heart: Regular rhythm rate with normal S1 and S2. Apical S4 Abdomen: No hepatosplenomegaly Spine/extremities: No clubbing, cyanosis, or edema Neuro: Nonfocal Psych: No depression or anxiety Result/EKG - Labs CBC & BMP: 05/04/17 04:38 05/04/17 04:38 Lab Results: I have reviewed the past 24 hour labs Labs: Laboratory Results - last 24 hr 05/03/17 05/03/17 05/04/17 17:00 21:07 04:38 WBC RBC Hgb Hct MCV MCH MCHC RDW Plt Count MPV Neut % (Auto) Lymph % (Auto) [place] % (Auto) Eos % (Auto) Baso % (Auto) Neut # (Auto) Lymph # (Auto) [place] # (Auto) Eos # (Auto) Baso # (Auto) Total Counted Immature Gran % Nucleated RBC % Immature Gran # Segmented Neutrophils Band Neutrophils Lymphocytes Monocytes Nucleated RBCs # Platelet Estimate Hypochromasia Microcytosis Sodium Potassium Chloride Carbon Dioxide Anion Gap BUN Creatinine GFR Calculation BUN/Creatinine Ratio Glucose POC Glucose 173 H 163 H Calculated Osmolality Calcium Magnesium Theophylline 9.9 L 05/04/17 05/04/17 05/04/17 04:38 04:38 07:45 WBC 15.8 H RBC 4.04 Hgb 11.4 L Hct 36.5 L MCV 90.3 MCH 28 MCHC 31.2 L RDW 14.4 Plt Count 183 MPV 10.4 Neut % (Auto) 89.5 H Lymph % (Auto) 2.9 L [place] % (Auto) 5.4 Eos % (Auto) 0.0 Baso % (Auto) 0.1 Neut # (Auto) 14.2 H Lymph # (Auto) 0.5 L [place] # (Auto) 0.9 H Eos # (Auto) 0.0 Baso # (Auto) 0.0 Total Counted 100 Immature Gran % 2.1 Nucleated RBC % 0.0 Immature Gran # 0.34 Segmented Neutrophils 88 H Band Neutrophils 2 Lymphocytes 6 L Monocytes 4 Nucleated RBCs # 0.00 Platelet Estimate Adequate Hypochromasia Slight Microcytosis Slight Sodium 143 Potassium 5.0 Chloride 103 Carbon Dioxide 31 Anion Gap 14.0 BUN 49 H Creatinine 1.40 H GFR Calculation 66 BUN/Creatinine Ratio 35.00 H Glucose 150 H POC Glucose 157 H Calculated Osmolality 300.0 Calcium 8.4 L Magnesium 2.6 H Theophylline - EKG EKG results: interpreted by me
[2017-05-04] MEDS ORDERED: APIXABAN 5 MG TABLET PO SCH (12:30)
[2017-05-04] MEDS ORDERED: SOTALOL 80 MG TABLET PO SCH (12:30)
[2017-05-04] MEDS: MAGNESIUM HYDROXIDE SUSP 30 ML UDCUP PO PRN (17:00)
[2017-05-04] MEDS: LEVOFLOXACIN 500 MG TABLET PO SCH (17:16)
[2017-05-04 18:23] LABS: ABG Base Excess 5.6 MMOL/L (-2.5-2.5); ABG HCO3 34.6 MMOL/L (20-26); ABG Oxygen Saturation 80.4 % (95-100); ABG PH 7.288 (7.35-7.45); ABG PO2 43.9 MM HG (80-95); ABG TCO2 36.8 MMOL/L (23-27)
[2017-05-04 18:24] LABS: ABG PCO2 73.9 MM HG (35-48)
--- NOTE | 2017-05-04 18:50 | XRay Report ---
History respiratory distress Comparison 05/02/2017 Heart is enlarged. Left hilar contour is unchanged from multiple prior studies. ET tube is been removed Extensive chronic right chest wall deformity and pleural thickening in the right chest is unchanged from multiple prior films Hazy infiltrates seen in the left lung base is similar on the most recent study. Impression: No interval change and left basilar infiltrate superimposed on chronic changes PROCEDURE INTERPRETED AT [facility] Final Report Signed by: Dr. Roxy Steinberg
--- NOTE | 2017-05-04 18:51 | Event Note ---
Rapid response called while patient on the floor. Patient with marked sob, oxygen saturation in mid 70s. Reported by staff that patient did not wear his bipap overnight. Patient transferred to the CCU. ABG with carbon dioxide of 73.9. Will attempt bipap for now. Per chart review, pt with COPD and recent diagnosis of mediastinal mass. Patient very well might require intubation today , but will at least attempt bipap first. Monitor closely and repeat abgs.
[2017-05-04] MEDS: MORPHINE 2 MG/1 ML SYRINGE IV PRN (18:55)
[2017-05-04] MEDS: HYDROcodone/CHLORPHENIRAMINE ER 5 ML UDCUP PO SCH (20:13)
[2017-05-04] MEDS: CETIRIZINE 10 MG TABLET PO SCH (20:13)
[2017-05-04 20:14] LABS: ABG Base Excess 7.2 MMOL/L (-2.5-2.5); ABG HCO3 35.4 MMOL/L (20-26); ABG Oxygen Saturation 84.1 % (95-100); ABG PH 7.327 (7.35-7.45); ABG TCO2 37.5 MMOL/L (23-27); Allen Test Positive; Pt O2 Delivery Device BIPAP
[2017-05-04 20:15] LABS: ABG PCO2 69.1 MM HG (35-48)
[2017-05-04] MEDS ORDERED: ETOMIDATE 20 MG/10 ML VIAL IV ONE (20:52)
[2017-05-04] MEDS ORDERED: SUCCINYLCHOLINE 200 MG/10 ML VIAL ONE (20:53)
[2017-05-04 23:46] LABS: ABG Base Excess 5.2 MMOL/L (-2.5-2.5); ABG Oxygen Saturation 90.8 % (95-100); ABG PCO2 62.3 MM HG (35-48); ABG PH 7.333 (7.35-7.45); ABG PO2 63.6 MM HG (80-95); ABG TCO2 29.7 MMOL/L (23-27); Allen Test Positive; Pt O2 Delivery Device BIPAP
[2017-05-05] MEDS: DEXMEDETOMIDINE 200 MCG in SODIUM CHLORIDE 0.9% 48 ML IV SCH (00:07)
--- NOTE | 2017-05-05 00:17 | Event Note ---
Dr. Lopez followed up ABG after patient had been placed on BiPAP and counseled the patient and his on the need for intubation which could be done at the end of visitation. Thereafter I arrived at the bedside and found that the patient's BiPAP settings have been adjusted per Dr. Lopez's order and that the patient was much more alert with improved O2 saturations. When he was stuck for the ABG he was somnolent and ill responsive but he was spontaneously awake and attempting to speak upon my exam. The decision was made to increase his IPAP to 18 and check another ABG given his demonstration of a response to higher pressure settings. I followed up this repeat ABG with a continued improvement in his CO2 nearing his baseline. By this time the patient is not only awake but stronger and resisting the BiPAP, pulling it off of his face and dismantling it in the process. I discussed with the patient at the bedside the severity of his illness and the necessity of keeping the BiPAP on to spare him a repeat intubation which would likely mean a tracheostomy. It does not seem that he has good insight into his condition and so we will place restraints on him to keep the BiPAP on. I discussed with ICU staff the risks of placing restraints on him while on BiPAP and they have agreed to monitor him closely for vomiting if the mask needs to be removed quickly.
[2017-05-05] MEDS: MORPHINE 2 MG/1 ML SYRINGE IV PRN (00:34)
[2017-05-05] MEDS: ALBUTEROL/IPRATROPIUM 3 ML NEB RESP TX SCH ×5 (01:39→23:57)
[2017-05-05] MEDS: LABETALOL 20 MG/4 ML SYRINGE IV PRN ×3 (02:28→13:15)
[2017-05-05 03:22] LABS: ABG Base Excess 4.2 MMOL/L (-2.5-2.5); ABG HCO3 31.3 MMOL/L (20-26); ABG Oxygen Saturation 94.2 % (95-100); ABG PCO2 58.5 MM HG (35-48); ABG PH 7.346 (7.35-7.45); ABG PO2 72.3 MM HG (80-95); ABG TCO2 33.1 MMOL/L (23-27); Allen Test Positive; Pt O2 Delivery Device BIPAP
[2017-05-05 03:38] LABS: Basophils % 0.1 % (0.0-0.8); Hematocrit 39.2 VOL% (42.0-52.0); Hemoglobin 12.1 GM/DL (14.0-18.0); Immature Granulocytes % 0.9 %; Immature Granulocytes Absolute 0.13 #; Lymphocytes # 0.7 10*3/uL (1.4-4.0); Lymphocytes % 4.9 % (21.2-54.2); Mean Corpuscular HGB Conc 30.9 GM/DL (32-36); Mean Corpuscular Hemoglobin 28 PG (27-34); Mean Platelet Volume 10.9 FL (9.6-12.0); Monocytes # 0.6 10*3/uL (0.11-0.8); Monocytes % 4.6 % (1.7-12.7); Neutrophils # 12.6 10*3/uL (1.4-7.4); Neutrophils % 89.5 % (38.7-73.9); Platelet Count 141 T/CUMM (130-400); Red Blood Count 4.31 MC/CUMM (3.8-5.5); Red Cell Distribution Width 14.4 % (9.3-17.3)
[2017-05-05 03:39] LABS: Calcium 8.4 MG/DL (8.5-10.1); Magnesium 2.9 MG/DL (1.8-2.4); Osmolality,Calculated 297.3 MOS/KG (273-304); Potassium 5.7 MMOL/L (3.5-5.1)
[2017-05-05] MEDS: methylPREDNISolone SOD SUC 125 MG/2 ML VIAL IV SCH ×2 (04:41→16:54)
[2017-05-05 05:55] LABS: Lymphocytes 6 % (20-55); Platelet Estimate Normal; Segmented Neutrophils 89 % (50-85); Total Cells Counted 100
[2017-05-05] MEDS: FAMOTIDINE 20 MG/2 ML VIAL IV SCH ×2 (06:14→19:27)
--- NOTE | 2017-05-05 07:52 | Pulmonology Progress Note ---
Pulmonary - PN: Subj Interval history: This 77-year-old man came in with increased shortness of breath. He had a CT at [place] about 2 weeks ago showing some mediastinal mass with partial extrinsic compression of left main bronchus. He is in now with cough congestion and increased shortness of breath. He underwent fiberoptic bronchoscopy this morning. He has tumor compressing the left main bronchus but there did appear to be an element of it involving the mucosa. Biopsies were taken and should give us an answer. His left main bronchus is not obstructed enough to require a stent. Likely would need combination of radiation and chemotherapy depending on cell type. We are waiting on retrieval of old records from 30 years ago when he had surgery on his right long and a thoracoplasty. He had TB at that time. 04/25/2017 patient had episodes of tachyarrhythmia during the night. He had a carotid massage and some IV medications per hospitalist service. This morning it appears that he has atrial flutter with 2-1 block and heart rate around 150. He does not seem real symptomatic. He is alert. Yesterday his ABG showed CO2 retention when he was on 4 L of oxygen. We have reduced the oxygen. Have not repeated the ABGs. Pathology from biopsy done yesterday should be out tomorrow. 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 He had a decortication done by Dr. Matos. He had full treatment for TB and was cured. This accounts for his abnormal x-ray on the right side. He did have a thoracoplasty at that time as well. At this point we need cardiology to help with his tachyarrhythmia, and we await his pathology report. Shortly will not be a surgical candidate by the location of the tumor and physiologically. 04/26/17 pathology has come back showing squamous cell lung cancer. This partially obstructs his left main bronchus and involves the mediastinum. Not a candidate for surgery. Probably radiation and/or chemotherapy. Need oncology to see. Findings were discussed with the patient and his family. I Would be in favor of treatment as soon as can be done. 04/29/2017 patient became more sluggish in the day on Saturday and had an elevated PCO2 requiring intubation this time. He has been on the ventilator now weekend. His chest x-ray looks fairly good. 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 Did not tolerate CPAP yesterday. He is on a sodium acetate infusion, and he has a metabolic alkalosis. We will stop that and start him on Diamox. Need to wean him with his PO2 around 60 so we will have problems with retaining if possible. We will also place on Aminophyllin. 04/30/2017 patient tolerated some CPAP yesterday. No ABGs this morning. Chest x- ray shows a little infiltrate at the left base. Probably needs diuresing a little further. Hopefully Diamox will help with that. 05/01/2017 patient did not tolerate CPAP yesterday. He is on propofol. We need to get him off that and try Precedex. He had apnea during CPAP trials. He has elevated PCO2 which we are trying to correct with Diamox. Hopefully can proceed with CPAP. 05/02/2017 patient is tolerating CPAP much better. Fall has been stopped. Patient is alert and calm at present. ABGs acceptable. Will try to get extubated today. Will need BiPAP postextubation at least at night. 05/03/2017 patient was able to be extubated yesterday. He is alert and oriented this morning. He does have an elevated PCO2. We need to keep his FiO2 low. Prefer an oxygen saturation of around 88-92% on him. Use BiPAP at night. Should be able to move to the floor today. Oncology can begin evaluation for treatment. Patient does need some physical therapy as well. 05/04/2017 patient was a little sleepy today. I checked his oxygen and it was set on 3 L. We had ordered 1 L with arrange for her O2 sat 88-92%. O2 sat was 99%. He has CO2 retention and in fact has been ventilated for respiratory failure recently. We need to keep his oxygen saturations in the 88-92% range. Patient remains fairly weak. He has COPD. 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 Discussed this with his daughter in the room. 05/05/2017 patient was moved back to the cc view last night because he kept pulling his BiPAP mask off. He should do okay on 1 L of nasal biprong's for periods of time long enough to eat. Agree with using BiPAP other times. Difficult situation in patient with COPD, respiratory failure, and newly diagnosed lung cancer that it does not appear we will be able to get him strong enough to have chemotherapy. Keep on trying. Exam (Progress Note) - Constitutional Vitals: Period Temp Pulse Resp BP Sys/Srivastava Pulse Ox Last 24 Hr 97 F-98 F 71-108 18-26 110-185/50-102 61-100 Exam: Patient is alert, calm, and responds to questions. Patient wearing facemask BiPAP, O2 sat 95%. Pupils react to light. Neck supple no bruits. Chest reveals some rhonchi bilaterally. Heart irregular without murmurs. Abdomen soft nontender no masses. Extremities no clubbing cyanosis edema. Results - Labs CBC & BMP: 05/05/17 02:53 05/05/17 02:53 Lab Results: I have reviewed the past 24 hour labs Assessment and Plan (1) Acute bronchitis Status: Acute Assessment and plan: He does have a cough and sputum production and rhonchi. We will treat him with antibiotics and steroids. Need to get cultures. Probably has some bronchopneumonia as well. 04/24/2017 being treated with antibiotics and steroids for acute bronchitis. 04/25/2017 continuing antibiotics and steroids. 04/26/17 this is better with steroids and antibiotics. These can be stopped in a couple of days. 04/29/2017 continuing antibiotics and steroids empirically. 04/30/2017 continuing antibiotics bronchodilator steroids. 05/01/2017 continuing empiric antibiotics and steroids. Also bronchodilators 05/02/2017 no bronchospasm. 05/03/2017 no wheezes. Bronchitis improved. 05/04/2017 continuing bronchodilator steroids and antibiotics. 05/05/2017 continuing bronchodilators and steroids also antibiotics Current Visit: Yes (2) Abnormal CT scan, chest Status: Acute Assessment and plan: I have not been able to pull up the CT to review but reading the reports it indicates that he has some mediastinal adenopathy. I will plan bronchoscopy in the morning. Hopefully I will be able to review the films prior to that. he does have a remote history of some form of some form of tuberculosis. 04/24/2017 was able to review the CT and he has fairly large mass in the mediastinum/left hilum with compression of left main bronchus. He has had bronchoscopy this morning with biopsies. Await pathology from that. 04/25/2017 mass with partial obstruction of left main bronchus. 05/01/[address] scan due to squamous cell carcinoma with partial obstruction of left main bronchus. Current Visit: Yes (3) Atrial fibrillation with RVR Status: Resolved Assessment and plan: Rate is controlled. 04/24/2017. On the monitor during his bronchoscopy it is apparent that he has multifocal atrial tachycardia rather than atrial fibrillation at the present time. 04/25/2017 atrial flutter with RVR this morning. Cardiology to see 04/26/17 heart rate is now in the 100-110 range. Still has atrial flutter. Cardiology following. I am concerned about possible metastatic disease given that he has cancer in the left mediastinal/hilar area. 04/30/2017 sinus rhythm with PACs. 05/02/2017 rate is controlled Current Visit: Yes (4) Hilar lymphadenopathy Status: Acute Assessment and plan: Could be results of previous TB or he could have a malignancy. Plan to do bronchoscopy in the morning and see if anything is visible there. Also will get cultures for Mycobacterium and bacterial causes of this 04/24/2017 this is likely to be a primary malignancy. Biopsies are pending. See bronchoscopy report 04/25/2017 likely to be bronchogenic carcinoma. Pathology reported pending Current Visit: Yes (5) Squamous cell carcinoma of left lung Status: Acute Assessment and plan: Pathology has come back showing squamous cell cancer. It involves the left main bronchus. Involves the mediastinum and left hilum. Not candidate for surgery. Oncology to see. I would favor early radiation since he has partial obstruction of the left main bronchus. It is not severe enough obstruction to consider stenting. 04/29/2017 will need oncology to see. This was partially obstructing left mainstem bronchus but I do not think it caused his respiratory failure acutely. 04/30/2017 squamous cell carcinoma of left lung with mediastinal involvement. If we can get him tuned up enough to tolerate it he will be considered for chemotherapy and radiation. Prognosis guarded 05/01/2017 this will require treatment with radiation/chemotherapy once were able to liberate him from the ventilator. Prognosis not good. 05/02/2017 biopsy-proven squamous cell carcinoma left main bronchus. Has mediastinal and left hilar mass with adenopathy. Hopefully can tune him up where he can get radiation or chemotherapy or both. 05/03/2017 squamous cell lung cancer left main bronchus with mediastinal and left hilar metastasis. Patient's functional status is marginal for treatment. Hopefully we can improve this getting him upstairs starting physical therapy. Dr. Elliott is following from oncology standpoint. 05/04/2017 will need chemo and/or radiation once we get him or he can tolerate it. 05/05/2017 squamous cell lung cancer left main bronchus. Partial obstruction. patient not able to tolerate treatment at present Current Visit: Yes (6) COPD (chronic obstructive pulmonary disease) Status: Acute Assessment and plan: Continuing bronchodilators and steroids as well as empiric antibiotics. He is a CO2 retainer. 04/30/2017 using Diamox to reduce his PCO2. 05/01/2017 he has CO2 retention due to his COPD. This is making weaning difficult. We need to keep his sedation to a minimum. 05/02/2017 continuing bronchodilators. Likely will need BiPAP once he is extubated. 05/03/2017 patient has been extubated. Continuing bronchodilators. Low-dose steroids. BiPAP at night. He is a CO2 retainer and we need to keep his O2 sats in the 88-92% range. 05/04/2017 he is a chronic lunger who retains. Must keep his O2 sats in the lower range outlined above. He is getting BiPAP at night. 05/05/2017 acute and chronic respiratory failure due to COPD aggravated by the lung cancer and by acute bronchitis. Continuing treatment of bronchitis and COPD. Agree with using BiPAP as much as he will tolerate. Current Visit: Yes (7) Respiratory failure Status: Acute Assessment and plan: ABG showed marked CO2 retention. Will use Diamox. Will start Aminophyllin. Will need to keep his PO2 around 60 in order to wean adequately. 04/30/2017 he was a retainer prior to acute respiratory failure. Need to keep PO2 relatively low. It was 63 yesterday afternoon. ABGs pending today. 05/01/2017 he has hypercarbic respiratory failure. We have started Aminophyllin and Diamox. 05/02/2017 hypercarbic respiratory failure. Aminophyllin and Diamox have helped. PCO2 is lower. He is alert and calm. Hopefully can get extubated today 05/03/2017 we have been able extubating. Still has some hypercarbia. Keep Aminophyllin infusion for another day and then change to oral theophylline. Low -dose Diamox. 05/05/2017 patient back in CCU because he would not be cooperative with the BiPAP on the floor. Now requiring restraints. Current Visit: Yes
[2017-05-05] MEDS: INSULIN LISPRO 100 UNIT/ML SUBCUT SCH ×4 (08:07→20:16)
[2017-05-05] MEDS: THEOPHYLLINE ER (24 HR) 300 MG CAPSULE PO SCH (09:16)
[2017-05-05] MEDS: ASPIRIN EC 325 MG TABLET PO SCH (09:16)
[2017-05-05] MEDS: DILTIAZEM CD 240 MG CAPSULE PO SCH (09:16)
[2017-05-05] MEDS: ENOXAPARIN 40 MG/0.4 ML SYRINGE SUBCUT SCH (09:16)
--- NOTE | 2017-05-05 13:43 | Hospitalist Progress Note ---
Assessment and Plan - Time spent with patient Time spent with patient: Greater than 30 minutes (1) Respiratory failure Status: Acute Assessment and plan: Currently in the intensive care unit on BiPAP. We will continue to closely monitor. Current Visit: Yes (2) COPD (chronic obstructive pulmonary disease) Status: Acute Assessment and plan: Continue current management. Pulmonary is involved. Current Visit: Yes (3) Atrial fibrillation with RVR Status: Resolved Assessment and plan: Currently sinus tachycardia. Current Visit: Yes (4) Pneumonia Status: Acute Assessment and plan: Continue antibiotics. Current Visit: Yes (5) Squamous cell carcinoma of left lung Status: Acute Assessment and plan: Defer to oncology. Current Visit: Yes Hospitalist: Subjective Interval history: Last night Mr. Dodge was transferred down to the intensive care unit after a rapid response was called given that the patient had trouble breathing. ABG revealed hypercapnia. It was made known that he refused his BiPAP overnight. He has required restraints and appears to be improving on BiPAP. He remains in the intensive care unit. ABGs are serially monitored with improvement of blood pH and reduction of CO2. Exam - Constitutional Vitals: Period Temp Pulse Resp BP Sys/Srivastava Pulse Ox Last 24 Hr 97 F-98.2 F 71-108 18-26 110-189/50-113 61-99 General appearance: no acute distress - Head Head exam: Present: normocephalic, atraumatic - Eye Eye exam: Present: EOMI Pupils: Present: NAY - ENT ENT exam: Present: normal exam - Neck Neck exam: Present: normal inspection - Respiratory Respiratory exam: Present: other (coarse breath sounds bilaterally). Absent: rhonchi, wheezes - Cardiovascular Cardiovascular exam: Present: tachycardia. Absent: gallop, irregular rhythm, rubs, systolic murmur - GI/Abdominal GI/Abdominal exam: Present: normal bowel sounds, soft. Absent: distended, firm , guarding, tenderness, rebound - Extremities Exam Extremities exam: Present: normal inspection. Absent: calf tenderness, edema Results - Labs CBC & BMP: 05/05/17 02:53 05/05/17 02:53 Lab Results: I have reviewed the past 24 hour labs
[2017-05-05] MEDS: SOTALOL 80 MG TABLET PO SCH ×2 (14:29→20:16)
--- NOTE | 2017-05-05 16:30 | Cardiology Progress Note ---
Assessment and Plan (1) Typical atrial flutter Status: Acute Assessment and plan: The patient has had recurrence of his flutter today. He was in sinus rhythm earlier. He appears to have failed rate control medicines We will add sotalol 80 mg p.o. now and twice daily--with hold parameters. Continue Lovenox. Would not switch from Lovenox to full dose Eliquis because he has cancer and he could bleed within those areas. We will continue to monitor I reviewed his labs today. His potassium, magnesium, are okay. We will reassess tomorrow. I conferred care with his nurse, Vicky 05/05/17: Respiratory insufficiency off his BiPAP, the patient was moved to CCU I encouraged him use his BiPAP Potassium is elevated. Will give Kayexalate if it is not already been done Sotalol was held for unclear reasons. It probably helped converting from the atrial flutter. Will restart it. If 1 of the consultants or the hospitalist disagrees with him being on it, please make a note and your progress note as to why it needs to be discontinued. I think it will probably help his arrhythmia Current Visit: Yes (2) Abnormal CT scan, chest Status: Acute Current Visit: Yes (3) COPD (chronic obstructive pulmonary disease) Status: Acute Current Visit: Yes (4) Hilar lymphadenopathy Status: Acute Current Visit: Yes (5) Lung cancer Status: Acute Current Visit: Yes (6) Pneumonia Status: Acute Current Visit: Yes (7) Respiratory failure Status: Acute Current Visit: Yes (8) Right lower lobe lung mass Status: Acute Current Visit: Yes (9) Shortness of breath Status: Acute Current Visit: Yes (10) Squamous cell carcinoma of left lung Status: Acute Current Visit: Yes Cardiology - PN: Subj Interval history: No chest pain or shortness of breath. Was short of breath last night, not using his BiPAP Exam (Progress Note) - Constitutional Vitals: Period Temp Pulse Resp BP Sys/Srivastava Pulse Ox Last 24 Hr 97 F-98.2 F 71-101 17-26 110-189/50-113 61-98 Exam: HEENT: Pupils equal, reactive to light and accommodation Neck: NoJVD or bruit Lungs clear to auscultation Heart: Regular rhythm rate with normal S1 and S2. Apical S4 Abdomen: No hepatosplenomegaly Spine/extremities: No clubbing, cyanosis, or edema Neuro: Nonfocal Psych: No depression or anxiety Result/EKG - Labs CBC & BMP: 05/05/17 02:53 05/05/17 02:53 Lab Results: I have reviewed the past 24 hour labs Labs: Laboratory Results - last 24 hr 05/04/17 05/04/17 05/04/17 11:22 17:13 17:17 WBC RBC Hgb Hct MCV MCH MCHC RDW Plt Count MPV Neut % (Auto) Lymph % (Auto) Traverse % (Auto) Eos % (Auto) Baso % (Auto) Neut # (Auto) Lymph # (Auto) Traverse # (Auto) Eos # (Auto) Baso # (Auto) Total Counted Immature Gran % Nucleated RBC % Immature Gran # Segmented Neutrophils Lymphocytes Monocytes Nucleated RBCs # Platelet Estimate Pappenheimer Bodies ABG pH 7.288 L ABG pCO2 73.9 H* ABG pO2 43.9 L ABG HCO3 34.6 H ABG Total CO2 36.8 H ABG O2 Saturation 80.4 L ABG Base Excess 5.6 H FiO2 Sodium Potassium Chloride Carbon Dioxide Anion Gap BUN Creatinine GFR Calculation BUN/Creatinine Ratio Glucose POC Glucose 212 H 99 Calculated Osmolality Calcium Magnesium 05/04/17 05/04/17 05/04/17 18:08 20:05 20:40 WBC RBC Hgb Hct MCV MCH MCHC RDW Plt Count MPV Neut % (Auto) Lymph % (Auto) Traverse % (Auto) Eos % (Auto) Baso % (Auto) Neut # (Auto) Lymph # (Auto) Traverse # (Auto) Eos # (Auto) Baso # (Auto) Total Counted Immature Gran % Nucleated RBC % Immature Gran # Segmented Neutrophils Lymphocytes Monocytes Nucleated RBCs # Platelet Estimate Pappenheimer Bodies ABG pH 7.327 L ABG pCO2 69.1 H* ABG pO2 46.0 L ABG HCO3 35.4 H ABG Total CO2 37.5 H ABG O2 Saturation 84.1 L ABG Base Excess 7.2 H FiO2 25.00 Sodium Potassium Chloride Carbon Dioxide Anion Gap BUN Creatinine GFR Calculation BUN/Creatinine Ratio Glucose POC Glucose 110 H 114 H Calculated Osmolality Calcium Magnesium 05/04/17 05/05/17 05/05/17 23:37 02:53 02:53 WBC 14.0 H RBC 4.31 Hgb 12.1 L Hct 39.2 L MCV 91.0 MCH 28 MCHC 30.9 L RDW 14.4 Plt Count 141 D MPV 10.9 Neut % (Auto) 89.5 H Lymph % (Auto) 4.9 L Traverse % (Auto) 4.6 Eos % (Auto) 0.0 Baso % (Auto) 0.1 Neut # (Auto) 12.6 H Lymph # (Auto) 0.7 L Traverse # (Auto) 0.6 Eos # (Auto) 0.0 Baso # (Auto) 0.0 Total Counted 100 Immature Gran % 0.9 Nucleated RBC % 0.0 Immature Gran # 0.13 Segmented Neutrophils 89 H Lymphocytes 6 L Monocytes 5 Nucleated RBCs # 0.00 Platelet Estimate Normal Pappenheimer Bodies Licensed Appraiser ABG pH 7.333 L ABG pCO2 62.3 H ABG pO2 63.6 L ABG HCO3 29.0 H ABG Total CO2 29.7 H ABG O2 Saturation 90.8 L ABG Base Excess 5.2 H FiO2 30.00 Sodium 141 Potassium 5.7 H Chloride 103 Carbon Dioxide 30 Anion Gap 13.7 BUN 56 H Creatinine 1.30 GFR Calculation 72 BUN/Creatinine Ratio 43.00 H Glucose 116 H POC Glucose Calculated Osmolality 297.3 Calcium 8.4 L Magnesium 2.9 H 05/05/17 05/05/17 05/05/17 03:02 07:33 11:16 WBC RBC Hgb Hct MCV MCH MCHC RDW Plt Count MPV Neut % (Auto) Lymph % (Auto) Traverse % (Auto) Eos % (Auto) Baso % (Auto) Neut # (Auto) Lymph # (Auto) Traverse # (Auto) Eos # (Auto) Baso # (Auto) Total Counted Immature Gran % Nucleated RBC % Immature Gran # Segmented Neutrophils Lymphocytes Monocytes Nucleated RBCs # Platelet Estimate Pappenheimer Bodies ABG pH 7.346 L ABG pCO2 58.5 H ABG pO2 72.3 L ABG HCO3 31.3 H ABG Total CO2 33.1 H ABG O2 Saturation 94.2 L ABG Base Excess 4.2 H FiO2 30.00 Sodium Potassium Chloride Carbon Dioxide Anion Gap BUN Creatinine GFR Calculation BUN/Creatinine Ratio Glucose POC Glucose 130 H 162 H Calculated Osmolality Calcium Magnesium
[2017-05-05] MEDS: LEVOFLOXACIN 500 MG TABLET PO SCH (16:54)
[2017-05-05] MEDS: HYDROcodone/CHLORPHENIRAMINE ER 5 ML UDCUP PO SCH (20:15)
[2017-05-05] MEDS: CLORAZEPATE 7.5 MG TABLET PO PRN (20:16)
[2017-05-05] MEDS: CETIRIZINE 10 MG TABLET PO SCH (20:16)
[2017-05-06] MEDS: methylPREDNISolone SOD SUC 125 MG/2 ML VIAL IV SCH ×2 (04:08→16:09)
[2017-05-06 05:06] LABS: Basophils % 0.1 % (0.0-0.8); Hematocrit 36.8 VOL% (42.0-52.0); Hemoglobin 12.1 GM/DL (14.0-18.0); Immature Granulocytes % 0.8 %; Immature Granulocytes Absolute 0.12 #; Lymphocytes # 0.5 10*3/uL (1.4-4.0); Lymphocytes % 3.4 % (21.2-54.2); Mean Corpuscular HGB Conc 32.9 GM/DL (32-36); Mean Corpuscular Hemoglobin 29 PG (27-34); Mean Corpuscular Volume 87.4 FL (87-102); Mean Platelet Volume 9.9 FL (9.6-12.0); Monocytes # 0.6 10*3/uL (0.11-0.8); NRBC # 0.02 10*3/uL; Neutrophils # 13.6 10*3/uL (1.4-7.4); Neutrophils % 91.7 % (38.7-73.9); Platelet Count 172 T/CUMM (130-400); Red Blood Count 4.21 MC/CUMM (3.8-5.5); Red Cell Distribution Width 14.3 % (9.3-17.3); White Blood Count 14.9 T/CUMM (4-12)
[2017-05-06 05:45] LABS: Band Neutrophils 1 % (0-10); Hypochromasia 1+; Lymphocytes 3 % (20-55); Ovalocytes Slight; Platelet Estimate Normal; Segmented Neutrophils 92 % (50-85); Total Cells Counted 100
[2017-05-06 05:46] LABS: Calcium 8.4 MG/DL (8.5-10.1); Magnesium 2.7 MG/DL (1.8-2.4); Microcytosis Slight; Osmolality,Calculated 292.5 MOS/KG (273-304); Potassium 5.6 MMOL/L (3.5-5.1)
[2017-05-06] MEDS: FAMOTIDINE 20 MG/2 ML VIAL IV SCH ×2 (06:00→18:34)
[2017-05-06] MEDS: LABETALOL 20 MG/4 ML SYRINGE IV PRN (06:27)
[2017-05-06] MEDS: ALBUTEROL/IPRATROPIUM 3 ML NEB RESP TX SCH ×3 (07:10→21:02)
--- NOTE | 2017-05-06 08:33 | Cardiology Progress Note ---
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 LOREDO SUMMARY: Mr. Dodge, 77BM, with no prior history of cardiac disease, presented to the emergency department at [facility] April 23, 2017 with complaints of worsening shortness of breath. He was initially seen at [facility] but transferred to our facility for pulmonary consultation. CT Chest at [facility] revealed abnormal results concerning for neoplastic adenopathy. Dr. Naqvi and Dr. Elliott are now following. Pathology has returned revealing squamous cell lung cancer which partially obstructs his left main bronchus and involves the mediastinum. He is not a candidate for surgery. He was also found to be in atrial fibrillation with rapid ventricular response , treated with Cardizem and Sotalol. He remained in sinus rhythm for several days and has been having intermittent atrial fib over the weekend. April 26, 2017 , patient experienced respiratory arrest. He was successfully extubated at the end of last week and moved out of the unit. Echocardiogram April 25, 2017 reveals the following: EF 60%, no significant valvular abnormality. RVSP 52 mmHg. MAY 06, 2017: Over the weekend, patient had been moved out of CCU. He began to experience respiratory distress as he appeared to be noncompliant with BiPAP. For this reason, he was returned to the CCU where he can be monitored closely. He is currently wearing his BiPAP device with SPO2 saturation 88%. It appears his Sotalol was held for unclear reasons but restarted yesterday. This morning, around 0700 he experienced a brief episode atrial flutter with RVR. He is currently in normal sinus rhythm. Because of his metastatic disease , it is felt he is not a good candidate for formal anticoagulation. He is on Lovenox 40 mg SC daily and may benefit from therapeutic dosing. Aspirin 325mg daily continues. Will further discuss with Dr. Mittal and await additional recommendations. ASSESSMENT/PLAN: 1. ATRIAL FIBRILLATION W/ RVR - Now NSR with frequent PACs. ASA continues. Low-dose Lovenox. May benefit from therapeutic dosing of Lovenox. 2. ACUTE BRONCHITIS - He is being treated with antibiotics and steroids. We have avoided beta blockers due to his prior active wheezing. 3. SQUAMOUS CELL CARCINOMA OF LUNG - Dr. Naqvi and Dr. Elliott addressing. See Dr. Elliott's note. 4. RESPIRATORY ARREST - Now extubated but requiring continuous oxygen. SPOs 89 %. (Prefer 88-92% per pulmonology). Use Bi-Pap at night. 5. FORMER TOBACCO ABUSE - History of 20 years smoking, reportedly quit approximately 12 years ago. 6. HYPERTENSION - adequately controlled. 7. ACUTE RENAL INSUFFICIENCY - STAGE II. Creatinine WNL at this time. Avoiding KATHRYN for fear of worsening creatinine, also favor rate controlling agents. 8. HYPERKALEMIA - not on any medications to contribute. Recheck daily. Exam (Progress Note) - Constitutional Vitals: Period Temp Pulse Resp BP Sys/Srivastava Pulse Ox Last 24 Hr 97.1 F-98 F 67-134 17-25 112-189/61-113 88-98 Exam: General: [Sleeping, wakes easily and cooperative. Wearing Bi-Pap. HEENT: [Bilateral arcus noted. Normocephalic, atraumatic. Mucous membranes moist. No jaundice noted. Conjunctiva moist and clear, sclerae anicteric] Neck: No obvious JVD/HJR, no thyromegaly. No carotid bruit appreciated Cardiac: [Regular rate and rhythm.] [No obvious murmur rub or gallop.] Lungs: [Rhonchi noted throughout both lung alan. Symmetrical chest wall movements. Abdomen: Soft, bowel sounds normoactive. Nontender and nondistended. No abdominal bruit or thrill noted. No masses noted. Musculoskeletal: No fluid collection. Decreased range of motion is noted. Extremities: No clubbing, cyanosis noted. [Hand edema noted bilaterally.] Upper extremity pulses 2+. Lower extremity pulses 2+. Capillary refill less than 3 seconds. Skin: No unusual lesions or rashes. No skin breakdown appreciated. Neuro: Moves all extremities well without hemiparesis or paralysis. Waking and following commands. No essential tremor is appreciated. Result/EKG - Labs CBC & BMP: 05/06/17 04:51 05/06/17 04:51 Lab Results: I have reviewed the past 24 hour labs Labs: Laboratory Results - last 24 hr 05/05/17 05/05/17 05/05/17 11:16 16:39 19:32 WBC RBC Hgb Hct MCV MCH MCHC RDW Plt Count MPV Neut % (Auto) Lymph % (Auto) Tama % (Auto) Eos % (Auto) Baso % (Auto) Neut # (Auto) Lymph # (Auto) Tama # (Auto) Eos # (Auto) Baso # (Auto) Total Counted Immature Gran % Nucleated RBC % Immature Gran # Segmented Neutrophils Band Neutrophils Lymphocytes Monocytes Nucleated RBCs # Platelet Estimate Hypochromasia Microcytosis Ovalocytes Morphology Comment Sodium Potassium Chloride Carbon Dioxide Anion Gap BUN Creatinine GFR Calculation BUN/Creatinine Ratio Glucose POC Glucose 162 H 124 H 150 H Calculated Osmolality Calcium Magnesium 05/06/17 05/06/17 05/06/17 04:51 04:51 07:02 WBC 14.9 H RBC 4.21 Hgb 12.1 L Hct 36.8 L MCV 87.4 MCH 29 MCHC 32.9 RDW 14.3 Plt Count 172 D MPV 9.9 Neut % (Auto) 91.7 H Lymph % (Auto) 3.4 L Tama % (Auto) 4.0 Eos % (Auto) 0.0 Baso % (Auto) 0.1 Neut # (Auto) 13.6 H Lymph # (Auto) 0.5 L Tama # (Auto) 0.6 Eos # (Auto) 0.0 Baso # (Auto) 0.0 Total Counted 100 Immature Gran % 0.8 Nucleated RBC % 0.1 Immature Gran # 0.12 Segmented Neutrophils 92 H Band Neutrophils 1 Lymphocytes 3 L Monocytes 4 Nucleated RBCs # 0.02 Platelet Estimate Normal Hypochromasia 1+ Microcytosis Slight Ovalocytes Slight Morphology Comment Sodium 139 Potassium 5.6 H Chloride 100 Carbon Dioxide 31 Anion Gap 13.6 BUN 50 H Creatinine 1.20 GFR Calculation 79 BUN/Creatinine Ratio 41.00 H Glucose 151 H POC Glucose 166 H Calculated Osmolality 292.5 Calcium 8.4 L Magnesium 2.7 H - Diagnostic Findings Procedure: Chest x-ray: report reviewed by me - EKG EKG results: interpreted by me EKG shows: sinus rhythm, atrial fibrillation (atrial flutter) <Laci Mittal - Last Filed: 05/06/17 09:56> Exam (Progress Note) - Constitutional Vitals: Period Temp Pulse Resp BP Sys/Srivastava Pulse Ox Last 24 Hr 97.1 F-98 F 67-134 17-25 112-168/61-100 88-98 Result/EKG - Labs CBC & BMP: 05/06/17 04:51 05/06/17 04:51 Labs: Laboratory Results - last 24 hr 05/05/17 05/05/17 05/05/17 11:16 16:39 19:32 WBC RBC Hgb Hct MCV MCH MCHC RDW Plt Count MPV Neut % (Auto) Lymph % (Auto) Tama % (Auto) Eos % (Auto) Baso % (Auto) Neut # (Auto) Lymph # (Auto) Tama # (Auto) Eos # (Auto) Baso # (Auto) Total Counted Immature Gran % Nucleated RBC % Immature Gran # Segmented Neutrophils Band Neutrophils Lymphocytes Monocytes Nucleated RBCs # Platelet Estimate Hypochromasia Microcytosis Ovalocytes Morphology Comment Sodium Potassium Chloride Carbon Dioxide Anion Gap BUN Creatinine GFR Calculation BUN/Creatinine Ratio Glucose POC Glucose 162 H 124 H 150 H Calculated Osmolality Calcium Magnesium 05/06/17 05/06/17 05/06/17 04:51 04:51 07:02 WBC 14.9 H RBC 4.21 Hgb 12.1 L Hct 36.8 L MCV 87.4 MCH 29 MCHC 32.9 RDW 14.3 Plt Count 172 D MPV 9.9 Neut % (Auto) 91.7 H Lymph % (Auto) 3.4 L Tama % (Auto) 4.0 Eos % (Auto) 0.0 Baso % (Auto) 0.1 Neut # (Auto) 13.6 H Lymph # (Auto) 0.5 L Tama # (Auto) 0.6 Eos # (Auto) 0.0 Baso # (Auto) 0.0 Total Counted 100 Immature Gran % 0.8 Nucleated RBC % 0.1 Immature Gran # 0.12 Segmented Neutrophils 92 H Band Neutrophils 1 Lymphocytes 3 L Monocytes 4 Nucleated RBCs # 0.02 Platelet Estimate Normal Hypochromasia 1+ Microcytosis Slight Ovalocytes Slight Morphology Comment Sodium 139 Potassium 5.6 H Chloride 100 Carbon Dioxide 31 Anion Gap 13.6 BUN 50 H Creatinine 1.20 GFR Calculation 79 BUN/Creatinine Ratio 41.00 H Glucose 151 H POC Glucose 166 H Calculated Osmolality 292.5 Calcium 8.4 L Magnesium 2.7 H
--- NOTE | 2017-05-06 08:41 | Pulmonology Progress Note ---
Pulmonary - PN: Subj Interval history: This 77-year-old man came in with increased shortness of breath. He had a CT at [place] about 2 weeks ago showing some mediastinal mass with partial extrinsic compression of left main bronchus. He is in now with cough congestion and increased shortness of breath. He underwent fiberoptic bronchoscopy this morning. He has tumor compressing the left main bronchus but there did appear to be an element of it involving the mucosa. Biopsies were taken and should give us an answer. His left main bronchus is not obstructed enough to require a stent. Likely would need combination of radiation and chemotherapy depending on cell type. We are waiting on retrieval of old records from 30 years ago when he had surgery on his right long and a thoracoplasty. He had TB at that time. 04/25/2017 patient had episodes of tachyarrhythmia during the night. He had a carotid massage and some IV medications per hospitalist service. This morning it appears that he has atrial flutter with 2-1 block and heart rate around 150. He does not seem real symptomatic. He is alert. Yesterday his ABG showed CO2 retention when he was on 4 L of oxygen. We have reduced the oxygen. Have not repeated the ABGs. Pathology from biopsy done yesterday should be out tomorrow. 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 He had a decortication done by Dr. Matos. He had full treatment for TB and was cured. This accounts for his abnormal x-ray on the right side. He did have a thoracoplasty at that time as well. At this point we need cardiology to help with his tachyarrhythmia, and we await his pathology report. Shortly will not be a surgical candidate by the location of the tumor and physiologically. 04/26/17 pathology has come back showing squamous cell lung cancer. This partially obstructs his left main bronchus and involves the mediastinum. Not a candidate for surgery. Probably radiation and/or chemotherapy. Need oncology to see. Findings were discussed with the patient and his family. I Would be in favor of treatment as soon as can be done. 04/29/2017 patient became more sluggish in the day on Saturday and had an elevated PCO2 requiring intubation this time. He has been on the ventilator now weekend. His chest x-ray looks fairly good. 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 Did not tolerate CPAP yesterday. He is on a sodium acetate infusion, and he has a metabolic alkalosis. We will stop that and start him on Diamox. Need to wean him with his PO2 around 60 so we will have problems with retaining if possible. We will also place on Aminophyllin. 04/30/2017 patient tolerated some CPAP yesterday. No ABGs this morning. Chest x- ray shows a little infiltrate at the left base. Probably needs diuresing a little further. Hopefully Diamox will help with that. 05/01/2017 patient did not tolerate CPAP yesterday. He is on propofol. We need to get him off that and try Precedex. He had apnea during CPAP trials. He has elevated PCO2 which we are trying to correct with Diamox. Hopefully can proceed with CPAP. 05/02/2017 patient is tolerating CPAP much better. Fall has been stopped. Patient is alert and calm at present. ABGs acceptable. Will try to get extubated today. Will need BiPAP postextubation at least at night. 05/03/2017 patient was able to be extubated yesterday. He is alert and oriented this morning. He does have an elevated PCO2. We need to keep his FiO2 low. Prefer an oxygen saturation of around 88-92% on him. Use BiPAP at night. Should be able to move to the floor today. Oncology can begin evaluation for treatment. Patient does need some physical therapy as well. 05/04/2017 patient was a little sleepy today. I checked his oxygen and it was set on 3 L. We had ordered 1 L with arrange for her O2 sat 88-92%. O2 sat was 99%. He has CO2 retention and in fact has been ventilated for respiratory failure recently. We need to keep his oxygen saturations in the 88-92% range. Patient remains fairly weak. He has COPD. 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 Discussed this with his daughter in the room. 05/05/2017 patient was moved back to the cc view last night because he kept pulling his BiPAP mask off. He should do okay on 1 L of nasal biprong's for periods of time long enough to eat. Agree with using BiPAP other times. Difficult situation in patient with COPD, respiratory failure, and newly diagnosed lung cancer that it does not appear we will be able to get him strong enough to have chemotherapy. Keep on trying. 05/06/2017 patient wearing BiPAP in the CCU. Does okay on 1 L nasal biprong when he eats. Will try to spend more of the daytime on 1 L. Patient will have a difficult time improving to the point where he can tolerate radiation or chemotherapy. Exam (Progress Note) - Constitutional Vitals: Period Temp Pulse Resp BP Sys/Srivastava Pulse Ox Last 24 Hr 97.1 F-98 F 67-134 17-25 112-189/61-113 88-98 Exam: Patient is alert, calm, and responds to questions. Patient wearing facemask BiPAP, O2 sat 95%. Pupils react to light. Neck supple no bruits. Chest reveals some coarse rhonchi bilaterally. Heart irregular without murmurs. Abdomen soft nontender no masses. Extremities no clubbing cyanosis edema. Results - Labs CBC & BMP: 05/06/17 04:51 05/06/17 04:51 Lab Results: I have reviewed the past 24 hour labs Assessment and Plan (1) Acute bronchitis Status: Acute Assessment and plan: He does have a cough and sputum production and rhonchi. We will treat him with antibiotics and steroids. Need to get cultures. Probably has some bronchopneumonia as well. 04/24/2017 being treated with antibiotics and steroids for acute bronchitis. 04/25/2017 continuing antibiotics and steroids. 04/26/17 this is better with steroids and antibiotics. These can be stopped in a couple of days. 04/29/2017 continuing antibiotics and steroids empirically. 04/30/2017 continuing antibiotics bronchodilator steroids. 05/01/2017 continuing empiric antibiotics and steroids. Also bronchodilators 05/02/2017 no bronchospasm. 05/03/2017 no wheezes. Bronchitis improved. 05/04/2017 continuing bronchodilator steroids and antibiotics. 05/05/2017 continuing bronchodilators and steroids also antibiotics 05/06/2017 continuing antibiotic steroids bronchodilators. He does have underlying COPD. 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 Current Visit: Yes (2) Abnormal CT scan, chest Status: Acute Assessment and plan: I have not been able to pull up the CT to review but reading the reports it indicates that he has some mediastinal adenopathy. I will plan bronchoscopy in the morning. Hopefully I will be able to review the films prior to that. he does have a remote history of some form of some form of tuberculosis. 04/24/2017 was able to review the CT and he has fairly large mass in the mediastinum/left hilum with compression of left main bronchus. He has had bronchoscopy this morning with biopsies. Await pathology from that. 04/25/2017 mass with partial obstruction of left main bronchus. 05/01/[address] scan due to squamous cell carcinoma with partial obstruction of left main bronchus. Current Visit: Yes (3) Atrial fibrillation with RVR Status: Resolved Assessment and plan: Rate is controlled. 04/24/2017. On the monitor during his bronchoscopy it is apparent that he has multifocal atrial tachycardia rather than atrial fibrillation at the present time. 04/25/2017 atrial flutter with RVR this morning. Cardiology to see 04/26/17 heart rate is now in the 100-110 range. Still has atrial flutter. Cardiology following. I am concerned about possible metastatic disease given that he has cancer in the left mediastinal/hilar area. 04/30/2017 sinus rhythm with PACs. 05/02/2017 rate is controlled Current Visit: Yes (4) Hilar lymphadenopathy Status: Acute Assessment and plan: Could be results of previous TB or he could have a malignancy. Plan to do bronchoscopy in the morning and see if anything is visible there. Also will get cultures for Mycobacterium and bacterial causes of this 04/24/2017 this is likely to be a primary malignancy. Biopsies are pending. See bronchoscopy report 04/25/2017 likely to be bronchogenic carcinoma. Pathology reported pending Current Visit: Yes (5) Squamous cell carcinoma of left lung Status: Acute Assessment and plan: Pathology has come back showing squamous cell cancer. It involves the left main bronchus. Involves the mediastinum and left hilum. Not candidate for surgery. Oncology to see. I would favor early radiation since he has partial obstruction of the left main bronchus. It is not severe enough obstruction to consider stenting. 04/29/2017 will need oncology to see. This was partially obstructing left mainstem bronchus but I do not think it caused his respiratory failure acutely. 04/30/2017 squamous cell carcinoma of left lung with mediastinal involvement. If we can get him tuned up enough to tolerate it he will be considered for chemotherapy and radiation. Prognosis guarded 05/01/2017 this will require treatment with radiation/chemotherapy once were able to liberate him from the ventilator. Prognosis not good. 05/02/2017 biopsy-proven squamous cell carcinoma left main bronchus. Has mediastinal and left hilar mass with adenopathy. Hopefully can tune him up where he can get radiation or chemotherapy or both. 05/03/2017 squamous cell lung cancer left main bronchus with mediastinal and left hilar metastasis. Patient's functional status is marginal for treatment. Hopefully we can improve this getting him upstairs starting physical therapy. Dr. Elliott is following from oncology standpoint. 05/04/2017 will need chemo and/or radiation once we get him or he can tolerate it. 05/05/2017 squamous cell lung cancer left main bronchus. Partial obstruction. patient not able to tolerate treatment at present 05/06/2017 has partial obstruction of left main bronchus. Certainly needs to have therapy for this if he can tolerate it. Current Visit: Yes (6) COPD (chronic obstructive pulmonary disease) Status: Acute Assessment and plan: Continuing bronchodilators and steroids as well as empiric antibiotics. He is a CO2 retainer. 04/30/2017 using Diamox to reduce his PCO2. 05/01/2017 he has CO2 retention due to his COPD. This is making weaning difficult. We need to keep his sedation to a minimum. 05/02/2017 continuing bronchodilators. Likely will need BiPAP once he is extubated. 05/03/2017 patient has been extubated. Continuing bronchodilators. Low-dose steroids. BiPAP at night. He is a CO2 retainer and we need to keep his O2 sats in the 88-92% range. 05/04/2017 he is a chronic lunger who retains. Must keep his O2 sats in the lower range outlined above. He is getting BiPAP at night. 05/05/2017 acute and chronic respiratory failure due to COPD aggravated by the lung cancer and by acute bronchitis. Continuing treatment of bronchitis and COPD. Agree with using BiPAP as much as he will tolerate. 05/06/2017 he retains CO2. Keep O2 sats in the 85-88 range on nasal oxygen. No higher than that. Current Visit: Yes (7) Respiratory failure Status: Acute Assessment and plan: ABG showed marked CO2 retention. Will use Diamox. Will start Aminophyllin. Will need to keep his PO2 around 60 in order to wean adequately. 04/30/2017 he was a retainer prior to acute respiratory failure. Need to keep PO2 relatively low. It was 63 yesterday afternoon. ABGs pending today. 05/01/2017 he has hypercarbic respiratory failure. We have started Aminophyllin and Diamox. 05/02/2017 hypercarbic respiratory failure. Aminophyllin and Diamox have helped. PCO2 is lower. He is alert and calm. Hopefully can get extubated today 05/03/2017 we have been able extubating. Still has some hypercarbia. Keep Aminophyllin infusion for another day and then change to oral theophylline. Low -dose Diamox. 05/05/2017 patient back in CCU because he would not be cooperative with the BiPAP on the floor. Now requiring restraints. 05/06/2017 acute on chronic respiratory failure. BiPAP at night 1 L nasal oxygen during the daytime. Current Visit: Yes
[2017-05-06] MEDS: ASPIRIN EC 325 MG TABLET PO SCH (09:09)
[2017-05-06] MEDS: SOTALOL 80 MG TABLET PO SCH (09:09)
[2017-05-06] MEDS: DILTIAZEM CD 240 MG CAPSULE PO SCH (09:10)
[2017-05-06] MEDS: THEOPHYLLINE ER (24 HR) 300 MG CAPSULE PO SCH (09:12)
[2017-05-06] MEDS: INSULIN LISPRO 100 UNIT/ML SUBCUT SCH ×4 (09:13→21:11)
[2017-05-06] MEDS: ENOXAPARIN 40 MG/0.4 ML SYRINGE SUBCUT SCH (09:15)
[2017-05-06] MEDS ORDERED: DILTIAZEM CD 120 MG CAPSULE PO ONE (10:00)
[2017-05-06] MEDS ORDERED: DIGOXIN 0.5 MG/2 ML AMP IV ONE (10:00)
[2017-05-06] MEDS ORDERED: DIGOXIN 0.125 MG TABLET PO SCH (13:00)
--- NOTE | 2017-05-06 14:21 | Hospitalist Progress Note ---
Assessment and Plan (1) Atrial fibrillation with RVR Status: Acute Assessment and plan: 1)afib- now back in NSR. 2)lung cancer in left mainstem bronchus 3)pneumonia- has completed 2 weeks of levaquin, has a couple more days of fortaz left to cover the pseudomonas. 4)chronic respiratory failure- he becomes hypercapnic quickly when his O2 is increased over 1L NC. To use 1L NC with meals, otherwise BIPAP per DR Naqvi. He and family need to discuss goals of care- he is fragile and might not improve enough to tolerate treatment for his cancer. 5)dispo- keep him here again today- he RRTd on floor when his O2 was turned up. If continuing to do well tomorrow morning/resp acidosis resolved, consider transfer. Will try to find his family this afternoon to discuss goals of care with them. 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 I have discussed this case with Dr Naqvi as well as the nurses. Patient has no complaints. He had afib with RVR this morning and has converted back to NSR. Cardiology has addressed this- he has chronic afib. Exam - Constitutional Vitals: Period Temp Pulse Resp BP Sys/Srivastava Pulse Ox Last 24 Hr 97.4 F-98 F 67-134 13-25 112-168/61-99 88-99 General appearance: normal weight, mild distress - Head Head exam: Present: normocephalic, atraumatic - Eye Eye exam: Present: EOMI. Absent: scleral icterus - Respiratory Respiratory exam: Present: rales (on left) - Cardiovascular Cardiovascular exam: Present: regular rate and rhythm - GI/Abdominal GI/Abdominal exam: Present: normal bowel sounds, soft. Absent: tenderness - Extremities Exam Extremities exam: Absent: edema Results - Labs CBC & BMP: 05/06/17 04:51 05/06/17 04:51 Lab Results: I have reviewed the past 24 hour labs
[2017-05-06] MEDS: HYDROcodone/CHLORPHENIRAMINE ER 5 ML UDCUP PO SCH (20:41)
[2017-05-06] MEDS: CETIRIZINE 10 MG TABLET PO SCH (20:41)
[2017-05-06] MEDS: ZALEPLON 5 MG CAPSULE PO PRN (20:42)
[2017-05-06] MEDS: CLORAZEPATE 7.5 MG TABLET PO PRN (20:42)
[2017-05-06] MEDS: MORPHINE 2 MG/1 ML SYRINGE IV PRN (20:42)
[2017-05-06] MEDS ORDERED: DILTIAZEM CD 180 MG CAPSULE PO SCH (21:00)
[2017-05-07] MEDS: ALBUTEROL/IPRATROPIUM 3 ML NEB RESP TX SCH ×4 (00:30→20:00)
[2017-05-07] MEDS: methylPREDNISolone SOD SUC 125 MG/2 ML VIAL IV SCH ×2 (04:48→16:50)
[2017-05-07 05:31] LABS: Basophils % 0.1 % (0.0-0.8); Hematocrit 39.2 VOL% (42.0-52.0); Hemoglobin 12.4 GM/DL (14.0-18.0); Immature Granulocytes % 0.8 %; Immature Granulocytes Absolute 0.13 #; Lymphocytes # 0.5 10*3/uL (1.4-4.0); Lymphocytes % 3.4 % (21.2-54.2); Mean Corpuscular HGB Conc 31.6 GM/DL (32-36); Mean Corpuscular Hemoglobin 28 PG (27-34); Mean Corpuscular Volume 89.3 FL (87-102); Mean Platelet Volume 9.8 FL (9.6-12.0); Monocytes # 0.6 10*3/uL (0.11-0.8); Monocytes % 3.6 % (1.7-12.7); Neutrophils # 14.4 10*3/uL (1.4-7.4); Neutrophils % 92.1 % (38.7-73.9); Platelet Count 151 T/CUMM (130-400); Red Blood Count 4.39 MC/CUMM (3.8-5.5); Red Cell Distribution Width 14.5 % (9.3-17.3); White Blood Count 15.6 T/CUMM (4-12)
[2017-05-07 05:54] LABS: Calcium 8.6 MG/DL (8.5-10.1); Magnesium 2.8 MG/DL (1.8-2.4); Osmolality,Calculated 293.4 MOS/KG (273-304)
[2017-05-07 05:56] LABS: Potassium 5.9 MMOL/L (3.5-5.1)
[2017-05-07 05:58] LABS: Hypochromasia 1+; Lymphocytes 2 % (20-55); Microcytosis Slight; Platelet Estimate Normal; Segmented Neutrophils 93 % (50-85); Total Cells Counted 100
[2017-05-07] MEDS: FAMOTIDINE 20 MG/2 ML VIAL IV SCH ×2 (06:21→18:48)
[2017-05-07] MEDS: MORPHINE 2 MG/1 ML SYRINGE IV PRN ×2 (06:26→21:52)
--- NOTE | 2017-05-07 07:43 | Pulmonology Progress Note ---
Pulmonary - PN: Subj Interval history: This 77-year-old man came in with increased shortness of breath. He had a CT at [place] about 2 weeks ago showing some mediastinal mass with partial extrinsic compression of left main bronchus. He is in now with cough congestion and increased shortness of breath. He underwent fiberoptic bronchoscopy this morning. He has tumor compressing the left main bronchus but there did appear to be an element of it involving the mucosa. Biopsies were taken and should give us an answer. His left main bronchus is not obstructed enough to require a stent. Likely would need combination of radiation and chemotherapy depending on cell type. We are waiting on retrieval of old records from 30 years ago when he had surgery on his right long and a thoracoplasty. He had TB at that time. 04/25/2017 patient had episodes of tachyarrhythmia during the night. He had a carotid massage and some IV medications per hospitalist service. This morning it appears that he has atrial flutter with 2-1 block and heart rate around 150. He does not seem real symptomatic. He is alert. Yesterday his ABG showed CO2 retention when he was on 4 L of oxygen. We have reduced the oxygen. Have not repeated the ABGs. Pathology from biopsy done yesterday should be out tomorrow. 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 He had a decortication done by Dr. Matos. He had full treatment for TB and was cured. This accounts for his abnormal x-ray on the right side. He did have a thoracoplasty at that time as well. At this point we need cardiology to help with his tachyarrhythmia, and we await his pathology report. Shortly will not be a surgical candidate by the location of the tumor and physiologically. 04/26/17 pathology has come back showing squamous cell lung cancer. This partially obstructs his left main bronchus and involves the mediastinum. Not a candidate for surgery. Probably radiation and/or chemotherapy. Need oncology to see. Findings were discussed with the patient and his family. I Would be in favor of treatment as soon as can be done. 04/29/2017 patient became more sluggish in the day on Saturday and had an elevated PCO2 requiring intubation this time. He has been on the ventilator now weekend. His chest x-ray looks fairly good. 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 Did not tolerate CPAP yesterday. He is on a sodium acetate infusion, and he has a metabolic alkalosis. We will stop that and start him on Diamox. Need to wean him with his PO2 around 60 so we will have problems with retaining if possible. We will also place on Aminophyllin. 04/30/2017 patient tolerated some CPAP yesterday. No ABGs this morning. Chest x- ray shows a little infiltrate at the left base. Probably needs diuresing a little further. Hopefully Diamox will help with that. 05/01/2017 patient did not tolerate CPAP yesterday. He is on propofol. We need to get him off that and try Precedex. He had apnea during CPAP trials. He has elevated PCO2 which we are trying to correct with Diamox. Hopefully can proceed with CPAP. 05/02/2017 patient is tolerating CPAP much better. Fall has been stopped. Patient is alert and calm at present. ABGs acceptable. Will try to get extubated today. Will need BiPAP postextubation at least at night. 05/03/2017 patient was able to be extubated yesterday. He is alert and oriented this morning. He does have an elevated PCO2. We need to keep his FiO2 low. Prefer an oxygen saturation of around 88-92% on him. Use BiPAP at night. Should be able to move to the floor today. Oncology can begin evaluation for treatment. Patient does need some physical therapy as well. 05/04/2017 patient was a little sleepy today. I checked his oxygen and it was set on 3 L. We had ordered 1 L with arrange for her O2 sat 88-92%. O2 sat was 99%. He has CO2 retention and in fact has been ventilated for respiratory failure recently. We need to keep his oxygen saturations in the 88-92% range. Patient remains fairly weak. He has COPD. 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 Discussed this with his daughter in the room. 05/05/2017 patient was moved back to the cc view last night because he kept pulling his BiPAP mask off. He should do okay on 1 L of nasal biprong's for periods of time long enough to eat. Agree with using BiPAP other times. Difficult situation in patient with COPD, respiratory failure, and newly diagnosed lung cancer that it does not appear we will be able to get him strong enough to have chemotherapy. Keep on trying. 05/06/2017 patient wearing BiPAP in the CCU. Does okay on 1 L nasal biprong when he eats. Will try to spend more of the daytime on 1 L. Patient will have a difficult time improving to the point where he can tolerate radiation or chemotherapy. 05/07/2017 patient stable with BiPAP in place. Oxygen saturations dropped into the 70s on 1 L. We will need to try 2 L. Need to get his O2 sat in the mid 80s. Exam (Progress Note) - Constitutional Vitals: Period Temp Pulse Resp BP Sys/Srivastava Pulse Ox Last 24 Hr 98.3 F-98.5 F 64-93 13-32 106-174/5-100 79-100 Exam: Patient is alert, calm, and responds to questions. Patient wearing facemask BiPAP, O2 sat 95%. Pupils react to light. Neck supple no bruits. Chest reveals some coarse rhonchi bilaterally. Heart irregular without murmurs. Abdomen soft nontender no masses. Extremities no clubbing cyanosis edema. Little change from yesterday. Results - Labs CBC & BMP: 05/07/17 04:51 05/07/17 04:51 Lab Results: I have reviewed the past 24 hour labs Assessment and Plan (1) Acute bronchitis Status: Acute Assessment and plan: He does have a cough and sputum production and rhonchi. We will treat him with antibiotics and steroids. Need to get cultures. Probably has some bronchopneumonia as well. 04/24/2017 being treated with antibiotics and steroids for acute bronchitis. 04/25/2017 continuing antibiotics and steroids. 04/26/17 this is better with steroids and antibiotics. These can be stopped in a couple of days. 04/29/2017 continuing antibiotics and steroids empirically. 04/30/2017 continuing antibiotics bronchodilator steroids. 05/01/2017 continuing empiric antibiotics and steroids. Also bronchodilators 05/02/2017 no bronchospasm. 05/03/2017 no wheezes. Bronchitis improved. 05/04/2017 continuing bronchodilator steroids and antibiotics. 05/05/2017 continuing bronchodilators and steroids also antibiotics 05/06/2017 continuing antibiotic steroids bronchodilators. He does have underlying COPD. 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 05/07/2017 continuing with combination of medications for acute bronchitis. Still having coarse rhonchi. Current Visit: Yes (2) Abnormal CT scan, chest Status: Acute Assessment and plan: I have not been able to pull up the CT to review but reading the reports it indicates that he has some mediastinal adenopathy. I will plan bronchoscopy in the morning. Hopefully I will be able to review the films prior to that. he does have a remote history of some form of some form of tuberculosis. 04/24/2017 was able to review the CT and he has fairly large mass in the mediastinum/left hilum with compression of left main bronchus. He has had bronchoscopy this morning with biopsies. Await pathology from that. 04/25/2017 mass with partial obstruction of left main bronchus. 05/01/[address] scan due to squamous cell carcinoma with partial obstruction of left main bronchus. Current Visit: Yes (3) Atrial fibrillation with RVR Status: Acute Assessment and plan: Rate is controlled. 04/24/2017. On the monitor during his bronchoscopy it is apparent that he has multifocal atrial tachycardia rather than atrial fibrillation at the present time. 04/25/2017 atrial flutter with RVR this morning. Cardiology to see 04/26/17 heart rate is now in the 100-110 range. Still has atrial flutter. Cardiology following. I am concerned about possible metastatic disease given that he has cancer in the left mediastinal/hilar area. 04/30/2017 sinus rhythm with PACs. 05/02/2017 rate is controlled 05/07/2017 presently in atrial flutter with block. Defer to cardiology. Current Visit: Yes (4) Hilar lymphadenopathy Status: Acute Assessment and plan: Could be results of previous TB or he could have a malignancy. Plan to do bronchoscopy in the morning and see if anything is visible there. Also will get cultures for Mycobacterium and bacterial causes of this 04/24/2017 this is likely to be a primary malignancy. Biopsies are pending. See bronchoscopy report 04/25/2017 likely to be bronchogenic carcinoma. Pathology reported pending 05/07/2017 likely metastatic disease from his squamous cell lung cancer. Current Visit: Yes (5) Squamous cell carcinoma of left lung Status: Chronic Assessment and plan: Pathology has come back showing squamous cell cancer. It involves the left main bronchus. Involves the mediastinum and left hilum. Not candidate for surgery. Oncology to see. I would favor early radiation since he has partial obstruction of the left main bronchus. It is not severe enough obstruction to consider stenting. 04/29/2017 will need oncology to see. This was partially obstructing left mainstem bronchus but I do not think it caused his respiratory failure acutely. 04/30/2017 squamous cell carcinoma of left lung with mediastinal involvement. If we can get him tuned up enough to tolerate it he will be considered for chemotherapy and radiation. Prognosis guarded 05/01/2017 this will require treatment with radiation/chemotherapy once were able to liberate him from the ventilator. Prognosis not good. 05/02/2017 biopsy-proven squamous cell carcinoma left main bronchus. Has mediastinal and left hilar mass with adenopathy. Hopefully can tune him up where he can get radiation or chemotherapy or both. 05/03/2017 squamous cell lung cancer left main bronchus with mediastinal and left hilar metastasis. Patient's functional status is marginal for treatment. Hopefully we can improve this getting him upstairs starting physical therapy. Dr. Elliott is following from oncology standpoint. 05/04/2017 will need chemo and/or radiation once we get him or he can tolerate it. 05/05/2017 squamous cell lung cancer left main bronchus. Partial obstruction. patient not able to tolerate treatment at present 05/06/2017 has partial obstruction of left main bronchus. Certainly needs to have therapy for this if he can tolerate it. 05/07/2017 biopsy-proven lung cancer. Unable to treat at present due to his overall condition. Current Visit: Yes (6) COPD (chronic obstructive pulmonary disease) Status: Acute Assessment and plan: Continuing bronchodilators and steroids as well as empiric antibiotics. He is a CO2 retainer. 04/30/2017 using Diamox to reduce his PCO2. 05/01/2017 he has CO2 retention due to his COPD. This is making weaning difficult. We need to keep his sedation to a minimum. 05/02/2017 continuing bronchodilators. Likely will need BiPAP once he is extubated. 05/03/2017 patient has been extubated. Continuing bronchodilators. Low-dose steroids. BiPAP at night. He is a CO2 retainer and we need to keep his O2 sats in the 88-92% range. 05/04/2017 he is a chronic lunger who retains. Must keep his O2 sats in the lower range outlined above. He is getting BiPAP at night. 05/05/2017 acute and chronic respiratory failure due to COPD aggravated by the lung cancer and by acute bronchitis. Continuing treatment of bronchitis and COPD. Agree with using BiPAP as much as he will tolerate. 05/06/2017 he retains CO2. Keep O2 sats in the 85-88 range on nasal oxygen. No higher than that. 05/07/2017 has severe COPD with CO2 retention. Current Visit: Yes (7) Respiratory failure Status: Acute Assessment and plan: ABG showed marked CO2 retention. Will use Diamox. Will start Aminophyllin. Will need to keep his PO2 around 60 in order to wean adequately. 04/30/2017 he was a retainer prior to acute respiratory failure. Need to keep PO2 relatively low. It was 63 yesterday afternoon. ABGs pending today. 05/01/2017 he has hypercarbic respiratory failure. We have started Aminophyllin and Diamox. 05/02/2017 hypercarbic respiratory failure. Aminophyllin and Diamox have helped. PCO2 is lower. He is alert and calm. Hopefully can get extubated today 05/03/2017 we have been able extubating. Still has some hypercarbia. Keep Aminophyllin infusion for another day and then change to oral theophylline. Low -dose Diamox. 05/05/2017 patient back in CCU because he would not be cooperative with the BiPAP on the floor. Now requiring restraints. 05/06/2017 acute on chronic respiratory failure. BiPAP at night 1 L nasal oxygen during the daytime. 05/07/2017 requiring BiPAP at night. Will creep up the O2 during the daytime trying to keep his oxygen saturation around 85%. Current Visit: Yes
[2017-05-07] MEDS ORDERED: DIGOXIN 0.5 MG/2 ML AMP IV ONE (08:16)
[2017-05-07] MEDS ORDERED: MEPERIDINE 50 MG/1 ML VIAL ONE (08:39)
[2017-05-07] MEDS ORDERED: MIDAZOLAM 2 MG/2 ML VIAL ONE (08:39)
--- NOTE | 2017-05-07 08:39 | Cardiology Progress Note ---
<Maria Guadalupe Adler E - Last Filed: 05/07/17 08:33> Assessment and Plan - Time spent with patient Time spent with patient: Greater than 30 minutes (1) Atrial fibrillation with RVR Status: Acute Assessment and plan: SEE PLAN OF CARE LISTED BELOW Current Visit: Yes (2) Acute bronchitis Status: Acute Assessment and plan: SEE PLAN OF CARE LISTED BELOW Current Visit: Yes (3) Former tobacco use Status: Resolved Assessment and plan: SEE PLAN OF CARE LISTED BELOW Current Visit: Yes (4) Hypertension Status: Chronic Assessment and plan: SEE PLAN OF CARE LISTED BELOW Current Visit: Yes (5) Squamous cell carcinoma of left lung Status: Chronic Assessment and plan: SEE PLAN OF CARE LISTED BELOW Current Visit: Yes (6) Respiratory failure Status: Acute Assessment and plan: SEE PLAN OF CARE LISTED BELOW Current Visit: Yes Cardiology - PN: Subj Interval history: COPY WRITER: DR. LOREDO SUMMARY: Mr. Dodge, 77BM, with no prior history of cardiac disease, presented to the emergency department at [facility] April 23, 2017 with complaints of worsening shortness of breath. He was initially seen at [facility] but transferred to our facility for pulmonary consultation. CT Chest at [place] revealed abnormal results concerning for neoplastic adenopathy. Dr. Naqvi and Dr. Elliott are now following. Pathology has returned revealing squamous cell lung cancer which partially obstructs his left main bronchus and involves the mediastinum. He is not a candidate for surgery. He was also found to be in atrial fibrillation with rapid ventricular response , treated with Cardizem and Sotalol. He remained in sinus rhythm for several days and has been having intermittent atrial fib over the weekend. April 26, 2017 , patient experienced respiratory arrest. He was successfully extubated at the end of last week and moved out of the unit. Echocardiogram April 25, 2017 reveals the following: EF 60%, no significant valvular abnormality. RVSP 52 mmHg. MAY 06, 2017: Over the weekend, patient had been moved out of CCU. He began to experience respiratory distress as he appeared to be noncompliant with BiPAP. For this reason, he was returned to the CCU where he can be monitored closely. He is currently wearing his BiPAP device with SPO2 saturation 88%. It appears his Sotalol was held for unclear reasons but restarted yesterday. This morning, around 0700 he experienced a brief episode atrial flutter with RVR. He is currently in normal sinus rhythm. Because of his metastatic disease , it is felt he is not a good candidate for formal anticoagulation. He is on Lovenox 40 mg SC daily and may benefit from therapeutic dosing. Aspirin 325mg daily continues. Will further discuss with Dr. Mittal and await additional recommendations. MAY 07, 2017: Patient continues to require BiPAP. Oxygen saturations dropped into the 70s on 1 L. Adjustments are being made. Patient's Sotalol was discontinued yesterday (wheezing). Cardizem was increased for rate control, Digoxin added. He continues to have paroxysms of atrial flutter, RVR. Obviously, this is worse when he is hypoxic and adjustments are currently being made to his BiPAP device this morning. Poor prognosis. Will discuss with Dr. Mittal and await additional recommendations. ASSESSMENT/PLAN: 1. ATRIAL FIBRILLATION W/ RVR - paroxysms of a flutter with RVR. ASA continues. Low-dose Lovenox. May benefit from therapeutic dose Lovenox. 2. ACUTE BRONCHITIS - He is being treated with antibiotics and steroids. We have avoided beta blockers due to his prior active wheezing. 3. SQUAMOUS CELL CARCINOMA OF LUNG - Dr. Naqvi and Dr. Elliott addressing. See Dr. Elliott's note. 4. RESPIRATORY ARREST - Now extubated but requiring continuous Bi-PAP. Hypoxia occuring intermittently. 5. FORMER TOBACCO ABUSE - History of 20 years smoking, reportedly quit approximately 12 years ago. 6. HYPERTENSION - adequately controlled. 7. ACUTE RENAL INSUFFICIENCY - STAGE II. Creatinine WNL at this time. Avoiding KATHRYN for fear of worsening creatinine, also favor rate controlling agents. 8. HYPERKALEMIA - not on any medications to contribute. Increased to 5.9 overnight. Will give one dose of Kayexalate now. Recheck daily. Exam (Progress Note) - Constitutional Vitals: Period Temp Pulse Resp BP Sys/Srivastava Pulse Ox Last 24 Hr 98.3 F-98.5 F 64-96 13-24 106-174/5-100 79-100 Exam: General: [Awake, tachypneic. Cooperative. Wearing Bi-Pap. HEENT: [Bilateral arcus noted. Normocephalic, atraumatic. Mucous membranes moist. No jaundice noted. Conjunctiva moist and clear, sclerae anicteric] Neck: No obvious JVD/HJR, no thyromegaly. No carotid bruit appreciated Cardiac: [Fast rate, irregularly irregular rhythm peer] [No obvious murmur rub or gallop.] Lungs: [Rhonchi noted throughout both lung alan. Wheezing noted throughout all lung alan. Tachypneic, wearing BiPAP. Abdomen: Soft, bowel sounds normoactive. Nontender and nondistended. No abdominal bruit or thrill noted. No masses noted. Musculoskeletal: No fluid collection. Decreased range of motion is noted. Extremities: No clubbing, cyanosis noted. [Hand edema noted bilaterally.] Upper extremity pulses 2+. Lower extremity pulses 2+. Capillary refill less than 3 seconds. Skin: No unusual lesions or rashes. No skin breakdown appreciated. Neuro: Moves all extremities well without hemiparesis or paralysis. Waking and following commands. No essential tremor is appreciated. Result/EKG - Labs CBC & BMP: 05/07/17 04:51 05/07/17 04:51 Lab Results: I have reviewed the past 24 hour labs Labs: Laboratory Results - last 24 hr 05/06/17 05/06/17 05/06/17 11:35 15:58 21:02 WBC RBC Hgb Hct MCV MCH MCHC RDW Plt Count MPV Neut % (Auto) Lymph % (Auto) Cloud % (Auto) Eos % (Auto) Baso % (Auto) Neut # (Auto) Lymph # (Auto) Cloud # (Auto) Eos # (Auto) Baso # (Auto) Total Counted Immature Gran % Nucleated RBC % Immature Gran # Segmented Neutrophils Lymphocytes Monocytes Nucleated RBCs # Platelet Estimate Hypochromasia Microcytosis Morphology Comment Sodium Potassium Chloride Carbon Dioxide Anion Gap BUN Creatinine GFR Calculation BUN/Creatinine Ratio Glucose POC Glucose 156 H 117 H 128 H Calculated Osmolality Calcium Magnesium 05/07/17 05/07/17 04:51 04:51 WBC 15.6 H RBC 4.39 Hgb 12.4 L Hct 39.2 L MCV 89.3 MCH 28 MCHC 31.6 L RDW 14.5 Plt Count 151 MPV 9.8 Neut % (Auto) 92.1 H Lymph % (Auto) 3.4 L Cloud % (Auto) 3.6 Eos % (Auto) 0.0 Baso % (Auto) 0.1 Neut # (Auto) 14.4 H Lymph # (Auto) 0.5 L Cloud # (Auto) 0.6 Eos # (Auto) 0.0 Baso # (Auto) 0.0 Total Counted 100 Immature Gran % 0.8 Nucleated RBC % 0.0 Immature Gran # 0.13 Segmented Neutrophils 93 H Lymphocytes 2 L Monocytes 5 Nucleated RBCs # 0.00 Platelet Estimate Normal Hypochromasia 1+ Microcytosis Slight Morphology Comment Sodium 140 Potassium 5.9 H Chloride 99 Carbon Dioxide 34 H Anion Gap 12.9 BUN 53 H Creatinine 1.30 GFR Calculation 72 BUN/Creatinine Ratio 40.00 H Glucose 122 H POC Glucose Calculated Osmolality 293.4 Calcium 8.6 Magnesium 2.8 H - Diagnostic Findings Procedure: Chest x-ray: report reviewed by me - EKG EKG results: interpreted by wi EKG shows: sinus rhythm, atrial fibrillation (Atrial flutter with RVR) <Laci Mittal - Last Filed: 05/07/17 08:58> Exam (Progress Note) - Constitutional Vitals: Period Temp Pulse Resp BP Sys/Srivastava Pulse Ox Last 24 Hr 98.3 F-98.5 F 64-96 13-24 106-174/5-100 79-100 Result/EKG - Labs CBC & BMP: 05/07/17 04:51 05/07/17 04:51 Labs: Laboratory Results - last 24 hr 05/06/17 05/06/17 05/06/17 11:35 15:58 21:02 WBC RBC Hgb Hct MCV MCH MCHC RDW Plt Count MPV Neut % (Auto) Lymph % (Auto) Cloud % (Auto) Eos % (Auto) Baso % (Auto) Neut # (Auto) Lymph # (Auto) Cloud # (Auto) Eos # (Auto) Baso # (Auto) Total Counted Immature Gran % Nucleated RBC % Immature Gran # Segmented Neutrophils Lymphocytes Monocytes Nucleated RBCs # Platelet Estimate Hypochromasia Microcytosis Morphology Comment Sodium Potassium Chloride Carbon Dioxide Anion Gap BUN Creatinine GFR Calculation BUN/Creatinine Ratio Glucose POC Glucose 156 H 117 H 128 H Calculated Osmolality Calcium Magnesium 05/07/17 05/07/17 04:51 04:51 WBC 15.6 H RBC 4.39 Hgb 12.4 L Hct 39.2 L MCV 89.3 MCH 28 MCHC 31.6 L RDW 14.5 Plt Count 151 MPV 9.8 Neut % (Auto) 92.1 H Lymph % (Auto) 3.4 L Cloud % (Auto) 3.6 Eos % (Auto) 0.0 Baso % (Auto) 0.1 Neut # (Auto) 14.4 H Lymph # (Auto) 0.5 L Cloud # (Auto) 0.6 Eos # (Auto) 0.0 Baso # (Auto) 0.0 Total Counted 100 Immature Gran % 0.8 Nucleated RBC % 0.0 Immature Gran # 0.13 Segmented Neutrophils 93 H Lymphocytes 2 L Monocytes 5 Nucleated RBCs # 0.00 Platelet Estimate Normal Hypochromasia 1+ Microcytosis Slight Morphology Comment Sodium 140 Potassium 5.9 H Chloride 99 Carbon Dioxide 34 H Anion Gap 12.9 BUN 53 H Creatinine 1.30 GFR Calculation 72 BUN/Creatinine Ratio 40.00 H Glucose 122 H POC Glucose Calculated Osmolality 293.4 Calcium 8.6 Magnesium 2.8 H
[2017-05-07] MEDS ORDERED: SODIUM POLYSTYRENE SULFATE 15 GM/60 ML BOTTLE PO STA (08:40)
[2017-05-07] MEDS ORDERED: MIDAZOLAM 2 MG/2 ML VIAL IV ONE (08:40)
[2017-05-07] MEDS ORDERED: MEPERIDINE 50 MG/1 ML VIAL IV ONE (08:40)
[2017-05-07] MEDS: INSULIN LISPRO 100 UNIT/ML SUBCUT SCH ×4 (08:56→21:07)
--- NOTE | 2017-05-07 08:58 | Cardiology Operative Report ---
Date of Procedure:: 05/07/17 Pre-op diagnosis: Left hilar/mediastinal mass suspect carcinoma Post-op diagnosis: same (Visible endobronchial tumor and left main bronchus) Procedure: Procedure: DC cardioversion Indication: Atrial flutter with RVR causing respiratory failure/instability Anesthesia: Versed 1 mg and Demerol 50 mg Consent: Urgent procedure Description: After patient received sedation he was cardioverted with 1 shock at 300 J with sinus mechanism in the upper 60s with PVCs. Anesthesia: minimal conscious sedation Surgeon / Physician: Laci Mittal Bundles Hanger: other Estimated blood loss: minimal Specimens: other (Biopsies 2 left main bronchus, bronchial washings) Condition: stable Disposition: ICU/CCU
[2017-05-07] MEDS: ENOXAPARIN 40 MG/0.4 ML SYRINGE SUBCUT SCH (09:27)
[2017-05-07] MEDS ORDERED: AMIODARONE INJ 450 MG in DEXTROSE 5% 241 ML IV SCH (09:30)
[2017-05-07] MEDS ORDERED: AMIODARONE INJ 150 MG in DEXTROSE 5% 100 ML IV ONE (09:30)
--- NOTE | 2017-05-07 12:16 | EKG Report ---
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
--- NOTE | 2017-05-07 12:30 | Hospitalist Progress Note ---
Assessment and Plan (1) Atrial fibrillation with RVR Status: Acute Assessment and plan: 1)afib- now back in NSR after cardioversion. On amio infusion. Appreciate Dr Mittal's help this morning. 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 3)pneumonia- has completed 2 weeks of levaquin, has a couple more days of fortaz left to cover the pseudomonas. 4)chronic respiratory failure- he becomes hypercapnic quickly when his O2 is increased over 1L NC. To use 1L NC with meals, otherwise BIPAP per DR Naqvi with gradual increase in time on NC as he tolerates. His respiratory failure is due to COPE, lung cancer, pneumonia, and history of surgery for TB 30 years ago with diminished capacity of right lung. 5)dispo-to floor with current level of care, DNR. Discuss hospice/comfort measures with again depending on how he does. 6)mild hyperkalemia- kayexalate. Current Visit: Yes (2) Acute bronchitis Status: Acute Current Visit: Yes (3) Hypertension Status: Chronic Current Visit: Yes (4) Squamous cell carcinoma of left lung Status: Chronic Current Visit: Yes (5) Lung cancer Status: Acute Current Visit: Yes Hospitalist: Subjective Interval history: Mr Dodge continues to have hypoxia and intermittent rapid afib. He is confused but not restless this morning. When I saw him earlier this morning, he was in rapid afib again and his sats dropped to the 50s on BIPAP. He was cardioverted. Dr Mittal also started him on amio. I spoke to Dr Naqvi to coordinate care and then to Mr Dodge . She voiced understanding that he was critically ill and reiterated that he does not want further treatment for the cancer. She would like him to be DNR and to go to a room where she can be with him. She is open to hospice care. She says she has accepted that he might not survive this hospital stay. I have changed his code status to DNR and arranged transfer to the floor to continue current treatment with possibility of comfort measures/hospice care depending on how he does. I have updated Dr Naqvi as well. Exam - Constitutional Vitals: Period Temp Pulse Resp BP Sys/Srivastava Pulse Ox Last 24 Hr 96.2 F-98.5 F 61-145 13-24 106-174/5-100 79-100 General appearance: normal weight, mild distress - Eye Eye exam: Present: EOMI. Absent: scleral icterus Pupils: Present: NAY - Respiratory Respiratory exam: Present: rales, rhonchi, wheezes - Cardiovascular Cardiovascular exam: Present: irregular rhythm, tachycardia - GI/Abdominal GI/Abdominal exam: Present: normal bowel sounds, soft. Absent: tenderness - Extremities Exam Extremities exam: Absent: edema Results - Labs CBC & BMP: 05/07/17 04:51 05/07/17 04:51 Lab Results: I have reviewed the past 24 hour labs
[2017-05-07] MEDS ORDERED: SODIUM POLYSTYRENE SULFATE 15 GM/60 ML BOTTLE ONE (16:43)
[2017-05-07] MEDS: ASPIRIN EC 325 MG TABLET PO SCH (17:02)
[2017-05-07] MEDS: THEOPHYLLINE ER (24 HR) 300 MG CAPSULE PO SCH (17:02)
[2017-05-07] MEDS: AMIODARONE INJ 450 MG in DEXTROSE 5% 241 ML IV SCH (20:58)
[2017-05-07] MEDS: HYDROcodone/CHLORPHENIRAMINE ER 5 ML UDCUP PO SCH (21:03)
[2017-05-07] MEDS: CETIRIZINE 10 MG TABLET PO SCH (21:03)
[2017-05-08] MEDS: LABETALOL 20 MG/4 ML SYRINGE IV PRN ×2 (00:36→03:34)
[2017-05-08] MEDS: ALBUTEROL/IPRATROPIUM 3 ML NEB RESP TX SCH ×4 (01:44→19:23)
[2017-05-08] MEDS: methylPREDNISolone SOD SUC 125 MG/2 ML VIAL IV SCH (03:30)
[2017-05-08 04:09] LABS: Basophils % 0.1 % (0.0-0.8); Hematocrit 41.9 VOL% (42.0-52.0); Hemoglobin 13.3 GM/DL (14.0-18.0); Immature Granulocytes % 0.8 %; Immature Granulocytes Absolute 0.15 #; Lymphocytes # 0.3 10*3/uL (1.4-4.0); Lymphocytes % 1.7 % (21.2-54.2); Mean Corpuscular HGB Conc 31.7 GM/DL (32-36); Mean Corpuscular Hemoglobin 28 PG (27-34); Mean Corpuscular Volume 89.5 FL (87-102); Mean Platelet Volume 11.2 FL (9.6-12.0); Monocytes # 0.6 10*3/uL (0.11-0.8); Neutrophils # 17.7 10*3/uL (1.4-7.4); Neutrophils % 94.4 % (38.7-73.9); Platelet Count 84 T/CUMM (130-400); Red Blood Count 4.68 MC/CUMM (3.8-5.5); White Blood Count 18.7 T/CUMM (4-12)
[2017-05-08 04:28] LABS: Calcium 8.8 MG/DL (8.5-10.1); Magnesium 2.7 MG/DL (1.8-2.4); Osmolality,Calculated 295.5 MOS/KG (273-304)
[2017-05-08 04:30] LABS: Potassium 6.3 MMOL/L (3.5-5.1)
[2017-05-08 04:49] LABS: Band Neutrophils 1 % (0-10); Lymphocytes 6 % (20-55); Segmented Neutrophils 91 % (50-85); Total Cells Counted 100
[2017-05-08] MEDS ORDERED: DEXTROSE 50% 25 GM/50 ML VIAL IV ONE (04:49)
[2017-05-08 04:50] LABS: Anisocytosis 1+; Ovalocytes Few
[2017-05-08] MEDS ORDERED: SODIUM BICARBONATE 50 MEQ/50 ML VIAL IV ONE (04:50)
[2017-05-08 04:51] LABS: Platelet Estimate Decreased
[2017-05-08] MEDS ORDERED: INSULIN REGULAR 100 UNIT/ML SUBCUT ONE (04:51)
[2017-05-08] MEDS: FAMOTIDINE 20 MG/2 ML VIAL IV SCH (06:40)
[2017-05-08] MEDS: AMIODARONE INJ 450 MG in DEXTROSE 5% 241 ML IV SCH (06:40)
--- NOTE | 2017-05-08 06:49 | EKG Report ---
Stationary ECG Study [facility] Test Date: 05/08/2017 5:09:40 AM Pat Name: DONG RAMIREZ Department: Room: 123 Gender: M Padder Cushion: : 1940 Requested by: Josue Rudd Order Number: [id number] Reading MD: OWEN LOREDO Intervals [place] Rate: 71 P: 73 MT: 149 QRS: 62 QRSD: 94 T: 64 QT: 335 QTc: 358 Interpretive Statements SINUS RHYTHM LOW VOTAGE TRACING Electronically Signed On 05-08-17 08:12:51 CDT by OWEN LOREDO [email or web address]
--- NOTE | 2017-05-08 07:48 | Cardiology Progress Note ---
Assessment and Plan (1) Atrial fibrillation with RVR Status: Acute Assessment and plan: May 07, 2017: 1. Mr. Dodge did not maintain normal sinus rhythm on sotalol, and rate control was not achieved with high dose diltiazem, and digoxin 2. Given hypoxia/instability with persistent atrial flutter with RVR at 150 bpm , cardioverted him emergently to normal sinus rhythm with PVCs 3. We will load with amiodarone with IV infusion to hopefully maintain normal sinus rhythm; will need to watch for bronchospasm, as he is prone to this. 4. Replace electrolytes as needed; mild hyperkalemia noted. 5. Hypertension is controlled 6. Echocardiogram showed EF 60% with PA pressure in the 50s. 7. Poor prognosis; lung CA May 08, 2017: 1. Maintain normal sinus rhythm this morning, he reportedly had some breakthrough A. fib yesterday evening 2. Given rate control strategy was not successful, he tolerates atrial fibrillation with RVR poorly, would start amiodarone 200 mg p.o. twice daily, and finish his current bag of IV amiodarone. 3. Low-dose Bystolic to help with blood pressure control and promote sinus rhythm. 4. Reportedly has inoperable lung cancer/hospice care 5. Sign off, please call if needed. Current Visit: Yes (2) Shortness of breath Status: Acute Current Visit: Yes (3) Squamous cell carcinoma of left lung Status: Chronic Current Visit: Yes (4) COPD (chronic obstructive pulmonary disease) Status: Acute Current Visit: Yes Cardiology - PN: Subj Interval history: Mr. Dodge is currently on CPAP to maintain his oxygen saturations. He has no pain and no complaints. He seems to be resting fairly well despite his CPAP. Exam (Progress Note) - Constitutional Vitals: Period Temp Pulse Resp BP Sys/Srivastava Pulse Ox Last 24 Hr 96.2 F-98 F 58-145 12-22 109-176/52-100 84-98 General appearance: normal weight, no acute distress - Head Head exam: Present: normal inspection, normocephalic, atraumatic - Neck Neck exam: Present: normal inspection - Respiratory Respiratory exam: Present: rhonchi, wheezes (Increased expiratory phase) - Cardiovascular Cardiovascular exam: Present: regular rate and rhythm. Absent: diastolic murmur , rubs - GI/Abdominal GI/Abdominal exam: Present: soft. Absent: tenderness - Extremities Exam Extremities exam: Absent: edema - Neurological Exam Neurological exam: Present: alert Result/EKG - Labs CBC & BMP: 05/08/17 03:59 05/08/17 03:59 Labs: Laboratory Results - last 24 hr 05/07/17 05/07/17 05/07/17 04:51 07:20 11:02 WBC RBC Hgb Hct MCV MCH MCHC RDW Plt Count MPV Neut % (Auto) Lymph % (Auto) [place] % (Auto) Eos % (Auto) Baso % (Auto) Neut # (Auto) Lymph # (Auto) [place] # (Auto) Eos # (Auto) Baso # (Auto) Total Counted Immature Gran % Nucleated RBC % Immature Gran # Segmented Neutrophils Band Neutrophils Lymphocytes Monocytes Nucleated RBCs # Platelet Estimate Anisocytosis Ovalocytes Sodium Potassium Chloride Carbon Dioxide Anion Gap BUN Creatinine GFR Calculation BUN/Creatinine Ratio Glucose POC Glucose 164 H 191 H Calculated Osmolality Calcium Magnesium Theophylline 10.1 05/07/17 05/07/17 05/08/17 16:35 21:03 03:59 WBC 18.7 H RBC 4.68 Hgb 13.3 L Hct 41.9 L MCV 89.5 MCH 28 MCHC 31.7 L RDW 14.0 Plt Count 84 L D MPV 11.2 Neut % (Auto) 94.4 H Lymph % (Auto) 1.7 L [place] % (Auto) 3.0 Eos % (Auto) 0.0 Baso % (Auto) 0.1 Neut # (Auto) 17.7 H Lymph # (Auto) 0.3 L [place] # (Auto) 0.6 Eos # (Auto) 0.0 Baso # (Auto) 0.0 Total Counted 100 Immature Gran % 0.8 Nucleated RBC % 0.0 Immature Gran # 0.15 Segmented Neutrophils 91 H Band Neutrophils 1 Lymphocytes 6 L Monocytes 2 Nucleated RBCs # 0.00 Platelet Estimate Decreased Anisocytosis 1+ Ovalocytes Few Sodium Potassium Chloride Carbon Dioxide Anion Gap BUN Creatinine GFR Calculation BUN/Creatinine Ratio Glucose POC Glucose 162 H 181 H Calculated Osmolality Calcium Magnesium Theophylline 05/08/17 03:59 WBC RBC Hgb Hct MCV MCH MCHC RDW Plt Count MPV Neut % (Auto) Lymph % (Auto) [place] % (Auto) Eos % (Auto) Baso % (Auto) Neut # (Auto) Lymph # (Auto) [place] # (Auto) Eos # (Auto) Baso # (Auto) Total Counted Immature Gran % Nucleated RBC % Immature Gran # Segmented Neutrophils Band Neutrophils Lymphocytes Monocytes Nucleated RBCs # Platelet Estimate Anisocytosis Ovalocytes Sodium 139 Potassium 6.3 H* Chloride 101 Carbon Dioxide 31 Anion Gap 13.3 BUN 56 H Creatinine 1.30 GFR Calculation 72 BUN/Creatinine Ratio 43.00 H Glucose 147 H POC Glucose Calculated Osmolality 295.5 Calcium 8.8 Magnesium 2.7 H Theophylline
[2017-05-08] MEDS: SODIUM POLYSTYRENE SULFATE 15 GM/60 ML BOTTLE PO SCH ×2 (08:00→16:09)
[2017-05-08] MEDS: ENOXAPARIN 40 MG/0.4 ML SYRINGE SUBCUT SCH (08:00)
[2017-05-08] MEDS: MAGNESIUM HYDROXIDE SUSP 30 ML UDCUP PO PRN (08:00)
[2017-05-08] MEDS: INSULIN LISPRO 100 UNIT/ML SUBCUT SCH ×3 (08:00→18:20)
--- NOTE | 2017-05-08 08:10 | Pulmonology Progress Note ---
Pulmonary - PN: Subj Interval history: This 77-year-old man came in with increased shortness of breath. He had a CT at [place] about 2 weeks ago showing some mediastinal mass with partial extrinsic compression of left main bronchus. He is in now with cough congestion and increased shortness of breath. He underwent fiberoptic bronchoscopy this morning. He has tumor compressing the left main bronchus but there did appear to be an element of it involving the mucosa. Biopsies were taken and should give us an answer. His left main bronchus is not obstructed enough to require a stent. Likely would need combination of radiation and chemotherapy depending on cell type. We are waiting on retrieval of old records from 30 years ago when he had surgery on his right long and a thoracoplasty. He had TB at that time. 04/25/2017 patient had episodes of tachyarrhythmia during the night. He had a carotid massage and some IV medications per hospitalist service. This morning it appears that he has atrial flutter with 2-1 block and heart rate around 150. He does not seem real symptomatic. He is alert. Yesterday his ABG showed CO2 retention when he was on 4 L of oxygen. We have reduced the oxygen. Have not repeated the ABGs. Pathology from biopsy done yesterday should be out tomorrow. 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 He had a decortication done by Dr. Matos. He had full treatment for TB and was cured. This accounts for his abnormal x-ray on the right side. He did have a thoracoplasty at that time as well. At this point we need cardiology to help with his tachyarrhythmia, and we await his pathology report. Shortly will not be a surgical candidate by the location of the tumor and physiologically. 04/26/17 pathology has come back showing squamous cell lung cancer. This partially obstructs his left main bronchus and involves the mediastinum. Not a candidate for surgery. Probably radiation and/or chemotherapy. Need oncology to see. Findings were discussed with the patient and his family. I Would be in favor of treatment as soon as can be done. 04/29/2017 patient became more sluggish in the day on Saturday and had an elevated PCO2 requiring intubation this time. He has been on the ventilator now weekend. His chest x-ray looks fairly good. 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 Did not tolerate CPAP yesterday. He is on a sodium acetate infusion, and he has a metabolic alkalosis. We will stop that and start him on Diamox. Need to wean him with his PO2 around 60 so we will have problems with retaining if possible. We will also place on Aminophyllin. 04/30/2017 patient tolerated some CPAP yesterday. No ABGs this morning. Chest x- ray shows a little infiltrate at the left base. Probably needs diuresing a little further. Hopefully Diamox will help with that. 05/01/2017 patient did not tolerate CPAP yesterday. He is on propofol. We need to get him off that and try Precedex. He had apnea during CPAP trials. He has elevated PCO2 which we are trying to correct with Diamox. Hopefully can proceed with CPAP. 05/02/2017 patient is tolerating CPAP much better. Fall has been stopped. Patient is alert and calm at present. ABGs acceptable. Will try to get extubated today. Will need BiPAP postextubation at least at night. 05/03/2017 patient was able to be extubated yesterday. He is alert and oriented this morning. He does have an elevated PCO2. We need to keep his FiO2 low. Prefer an oxygen saturation of around 88-92% on him. Use BiPAP at night. Should be able to move to the floor today. Oncology can begin evaluation for treatment. Patient does need some physical therapy as well. 05/04/2017 patient was a little sleepy today. I checked his oxygen and it was set on 3 L. We had ordered 1 L with arrange for her O2 sat 88-92%. O2 sat was 99%. He has CO2 retention and in fact has been ventilated for respiratory failure recently. We need to keep his oxygen saturations in the 88-92% range. Patient remains fairly weak. He has COPD. 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 Discussed this with his daughter in the room. 05/05/2017 patient was moved back to the cc view last night because he kept pulling his BiPAP mask off. He should do okay on 1 L of nasal biprong's for periods of time long enough to eat. Agree with using BiPAP other times. Difficult situation in patient with COPD, respiratory failure, and newly diagnosed lung cancer that it does not appear we will be able to get him strong enough to have chemotherapy. Keep on trying. 05/06/2017 patient wearing BiPAP in the CCU. Does okay on 1 L nasal biprong when he eats. Will try to spend more of the daytime on 1 L. Patient will have a difficult time improving to the point where he can tolerate radiation or chemotherapy. 05/07/2017 patient stable with BiPAP in place. Oxygen saturations dropped into the 70s on 1 L. We will need to try 2 L. Need to get his O2 sat in the mid 80s. 05/08/2017 patient continuing to need BiPAP most of the day. Discussion with family yesterday resulted in plans for DNR. Making a decision about hospice care. He is not going to get strong enough to have chemotherapy or radiation. Exam (Progress Note) - Constitutional Vitals: Period Temp Pulse Resp BP Sys/Srivastava Pulse Ox Last 24 Hr 96.2 F-98 F 58-122 12-22 109-176/52-100 84-98 Exam: Patient is alert, calm, and responds to questions. Patient wearing facemask BiPAP, O2 sat 89%. Pupils react to light. Neck supple no bruits. Chest reveals some coarse rhonchi bilaterally. Heart irregular without murmurs. Abdomen soft nontender no masses. Extremities no clubbing cyanosis edema. Little change from yesterday. Results - Labs CBC & BMP: 05/08/17 03:59 05/08/17 03:59 Lab Results: I have reviewed the past 24 hour labs Assessment and Plan (1) Acute bronchitis Status: Acute Assessment and plan: He does have a cough and sputum production and rhonchi. We will treat him with antibiotics and steroids. Need to get cultures. Probably has some bronchopneumonia as well. 04/24/2017 being treated with antibiotics and steroids for acute bronchitis. 04/25/2017 continuing antibiotics and steroids. 04/26/17 this is better with steroids and antibiotics. These can be stopped in a couple of days. 04/29/2017 continuing antibiotics and steroids empirically. 04/30/2017 continuing antibiotics bronchodilator steroids. 05/01/2017 continuing empiric antibiotics and steroids. Also bronchodilators 05/02/2017 no bronchospasm. 05/03/2017 no wheezes. Bronchitis improved. 05/04/2017 continuing bronchodilator steroids and antibiotics. 05/05/2017 continuing bronchodilators and steroids also antibiotics 05/06/2017 continuing antibiotic steroids bronchodilators. He does have underlying COPD. 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 05/07/2017 continuing with combination of medications for acute bronchitis. Still having coarse rhonchi. 05/08/2017 could change to oral medications per Current Visit: Yes (2) Abnormal CT scan, chest Status: Acute Assessment and plan: I have not been able to pull up the CT to review but reading the reports it indicates that he has some mediastinal adenopathy. I will plan bronchoscopy in the morning. Hopefully I will be able to review the films prior to that. he does have a remote history of some form of some form of tuberculosis. 04/24/2017 was able to review the CT and he has fairly large mass in the mediastinum/left hilum with compression of left main bronchus. He has had bronchoscopy this morning with biopsies. Await pathology from that. 04/25/2017 mass with partial obstruction of left main bronchus. 05/01/[address] scan due to squamous cell carcinoma with partial obstruction of left main bronchus. Current Visit: Yes (3) Atrial fibrillation with RVR Status: Acute Assessment and plan: Rate is controlled. 04/24/2017. On the monitor during his bronchoscopy it is apparent that he has multifocal atrial tachycardia rather than atrial fibrillation at the present time. 04/25/2017 atrial flutter with RVR this morning. Cardiology to see 04/26/17 heart rate is now in the 100-110 range. Still has atrial flutter. Cardiology following. I am concerned about possible metastatic disease given that he has cancer in the left mediastinal/hilar area. 04/30/2017 sinus rhythm with PACs. 05/02/2017 rate is controlled 05/07/2017 presently in atrial flutter with block. Defer to cardiology. 05/08/2017 now in sinus rhythm. Current Visit: Yes (4) Hilar lymphadenopathy Status: Acute Assessment and plan: Could be results of previous TB or he could have a malignancy. Plan to do bronchoscopy in the morning and see if anything is visible there. Also will get cultures for Mycobacterium and bacterial causes of this 04/24/2017 this is likely to be a primary malignancy. Biopsies are pending. See bronchoscopy report 04/25/2017 likely to be bronchogenic carcinoma. Pathology reported pending 05/07/2017 likely metastatic disease from his squamous cell lung cancer. Current Visit: Yes (5) Squamous cell carcinoma of left lung Status: Chronic Assessment and plan: Pathology has come back showing squamous cell cancer. It involves the left main bronchus. Involves the mediastinum and left hilum. Not candidate for surgery. Oncology to see. I would favor early radiation since he has partial obstruction of the left main bronchus. It is not severe enough obstruction to consider stenting. 04/29/2017 will need oncology to see. This was partially obstructing left mainstem bronchus but I do not think it caused his respiratory failure acutely. 04/30/2017 squamous cell carcinoma of left lung with mediastinal involvement. If we can get him tuned up enough to tolerate it he will be considered for chemotherapy and radiation. Prognosis guarded 05/01/2017 this will require treatment with radiation/chemotherapy once were able to liberate him from the ventilator. Prognosis not good. 05/02/2017 biopsy-proven squamous cell carcinoma left main bronchus. Has mediastinal and left hilar mass with adenopathy. Hopefully can tune him up where he can get radiation or chemotherapy or both. 05/03/2017 squamous cell lung cancer left main bronchus with mediastinal and left hilar metastasis. Patient's functional status is marginal for treatment. Hopefully we can improve this getting him upstairs starting physical therapy. Dr. Elliott is following from oncology standpoint. 05/04/2017 will need chemo and/or radiation once we get him or he can tolerate it. 05/05/2017 squamous cell lung cancer left main bronchus. Partial obstruction. patient not able to tolerate treatment at present 05/06/2017 has partial obstruction of left main bronchus. Certainly needs to have therapy for this if he can tolerate it. 05/07/2017 biopsy-proven lung cancer. Unable to treat at present due to his overall condition. 05/08/2017 apparently supportive care is planned. Current Visit: Yes (6) COPD (chronic obstructive pulmonary disease) Status: Acute Assessment and plan: Continuing bronchodilators and steroids as well as empiric antibiotics. He is a CO2 retainer. 04/30/2017 using Diamox to reduce his PCO2. 05/01/2017 he has CO2 retention due to his COPD. This is making weaning difficult. We need to keep his sedation to a minimum. 05/02/2017 continuing bronchodilators. Likely will need BiPAP once he is extubated. 05/03/2017 patient has been extubated. Continuing bronchodilators. Low-dose steroids. BiPAP at night. He is a CO2 retainer and we need to keep his O2 sats in the 88-92% range. 05/04/2017 he is a chronic lunger who retains. Must keep his O2 sats in the lower range outlined above. He is getting BiPAP at night. 05/05/2017 acute and chronic respiratory failure due to COPD aggravated by the lung cancer and by acute bronchitis. Continuing treatment of bronchitis and COPD. Agree with using BiPAP as much as he will tolerate. 05/06/2017 he retains CO2. Keep O2 sats in the 85-88 range on nasal oxygen. No higher than that. 05/07/2017 has severe COPD with CO2 retention. 05/08/2017 severe COPD with CO2 retention. On IV medications. Okay with me to progress to oral meds. Probably will need prednisone for at least a couple of weeks Current Visit: Yes (7) Respiratory failure Status: Acute Assessment and plan: ABG showed marked CO2 retention. Will use Diamox. Will start Aminophyllin. Will need to keep his PO2 around 60 in order to wean adequately. 04/30/2017 he was a retainer prior to acute respiratory failure. Need to keep PO2 relatively low. It was 63 yesterday afternoon. ABGs pending today. 05/01/2017 he has hypercarbic respiratory failure. We have started Aminophyllin and Diamox. 05/02/2017 hypercarbic respiratory failure. Aminophyllin and Diamox have helped. PCO2 is lower. He is alert and calm. Hopefully can get extubated today 05/03/2017 we have been able extubating. Still has some hypercarbia. Keep Aminophyllin infusion for another day and then change to oral theophylline. Low -dose Diamox. 05/05/2017 patient back in CCU because he would not be cooperative with the BiPAP on the floor. Now requiring restraints. 05/06/2017 acute on chronic respiratory failure. BiPAP at night 1 L nasal oxygen during the daytime. 05/07/2017 requiring BiPAP at night. Will creep up the O2 during the daytime trying to keep his oxygen saturation around 85%. 05/08/2017 continuing the BiPAP at night and low flow oxygen. Try to keep his O2 sat at 85% or so. Current Visit: Yes
[2017-05-08] MEDS: THEOPHYLLINE ER (24 HR) 300 MG CAPSULE PO SCH (08:30)
[2017-05-08] MEDS ORDERED: NEBIVOLOL 5 MG TABLET PO SCH (09:00)
[2017-05-08] MEDS ORDERED: AMIODARONE 200 MG TABLET PO SCH (09:00)
--- NOTE | 2017-05-08 10:30 | Hospitalist Progress Note ---
Assessment and Plan (1) Atrial fibrillation with RVR Status: Acute Assessment and plan: 1)hyperkalemia- repeat kayexalate x 2 then check K= and redose if needed. 2)afib- completing amio infusion soon, then to floor. cards signed off. 3)squamous cell lung cancer- he elected not to have treatment. 4)acute on chronic respiratory failure- hypercapnic and hypoxic- due to lung cancer, old TB s/p resection, COPD- minimize O2 as possible, continuing to require BIPAP. taper steroids. 5)pneumonia- completed treatment for orgs cultured from sputum. WBC rising. He is on steroids. Decrease steroids a bit, broaden antibiotics with teflaro for now. 6)dispo- to floor, DNR, seems to be moving toward hospice mindset. Current Visit: Yes (2) Acute bronchitis Status: Acute Current Visit: Yes (3) Hypertension Status: Chronic Current Visit: Yes (4) Squamous cell carcinoma of left lung Status: Chronic Current Visit: Yes (5) Lung cancer Status: Acute Current Visit: Yes Hospitalist: Subjective Interval history: Mr Dodge did not transfer yesterday because at shift change he started to pull his BIPAP off and they kept him in CCU. He is calm this morning and nods to questions. No other events. Cardiology has signed off. He will move to the floor when amio infusion completed. Family considering further move to hospice care, continuing current level of support for now. Exam - Constitutional Vitals: Period Temp Pulse Resp BP Sys/Srivastava Pulse Ox Last 24 Hr 96.2 F-98 F 58-122 12-22 109-176/67-102 84-98 General appearance: normal weight, no acute distress - Head Head exam: Present: normocephalic, atraumatic - Eye Eye exam: Present: EOMI. Absent: scleral icterus - Respiratory Respiratory exam: Present: rhonchi. Absent: wheezes - Cardiovascular Cardiovascular exam: Present: regular rate and rhythm - GI/Abdominal GI/Abdominal exam: Present: normal bowel sounds, soft. Absent: tenderness - Extremities Exam Extremities exam: Absent: edema Results - Labs CBC & BMP: 05/08/17 03:59 05/08/17 03:59 Lab Results: I have reviewed the past 24 hour labs
[2017-05-08] MEDS ORDERED: CEFTAROLINE 600 MG in SODIUM CHLORIDE 0.9% 100 ML IV SCH (12:00)
[2017-05-08] MEDS ORDERED: MIDAZOLAM 2 MG/2 ML VIAL IV ONE (14:00)
[2017-05-08] MEDS ORDERED: LORazepam 2 MG/1 ML VIAL IV ONE (14:03)
[2017-05-08] MEDS ORDERED: LORazepam 2 MG/1 ML VIAL ONE (14:08)
[2017-05-08] MEDS ORDERED: methylPREDNISolone SOD SUC 40 MG/1 ML VIAL IV SCH (15:00)
[2017-05-08 18:11] VITALS: BP 130/88
[2017-05-09] MEDS: ALBUTEROL/IPRATROPIUM 3 ML NEB RESP TX SCH (00:09)
--- NOTE | 2017-05-13 09:26 | Physician Query Form ---
CLICK EDIT DOCUMENT TO SELECT QUERY ANSWER --> OK --> SIGN Kelly Vance RN, CCDS Certified Clinical Senior Integration Architect W) [phone] (f) [phone] [email or web address] PROVIDERS: Make your selection(s) from the choices in EACH section by typing an "x" and enter comments in the comment section. Please use your independent medical judgment in providing your response. This request does not imply that any particular answer is desired or expected. CLINICAL INDICATORS: (Providers should not edit this section) The medical record indicates that the patient was admitted with a Lung Mass, on the : "Family considering further move to hospice care, continuing current level of support for now". Based on the above, could you clarify if there has been a change in the plan of care for this patient? ( x ) Comfort Measures/Palliative Care ( ) Hospice Care ( ) Current treatment continued without comfort measures/palliative care being initiated ( ) Other, please specify: ( ) Clinically unable to determine COMMENTS: PLEASE ALSO DOCUMENT RESPONSE IN PROGRESS NOTES AND/OR DISCHARGE SUMMARY Use of terms such as suspected, likely, or probable (associated with a specific diagnosis that is being evaluated, monitored, or treated as if it exists) are acceptable and can be restated in the discharge summary if not ruled out. MTDD
== END 2017-05-08 18:05 | disposition expired | DRG 207 ==
LOC: N.ED 10:46 → N.EDINP 12:55 → SUATTDRO 12:55 → N.TELES 13:20 → N.CC 04-26 17:18 → N.4E 05-03 16:08 → N.CC 05-04 18:47 → N.2E 05-08 14:23
PROVIDERS: ADMIT Internal Medicine; ATTEND Internal Medicine